=== PATIENT | female | born 1970 | race Caucasian/White ===

== ENCOUNTER 2019-11-26 13:25 | Inpatient (IN) | payer OTHER, SELFPAY ==
[2019-11-26 14:39] VITALS: BP 173/88; PULSE 96; RESP 16; TEMP 37.2; O2SAT 99; BMI 40.7
[2019-11-26 16:00] VITALS: BP 148/64; PULSE 84; RESP 15; TEMP 37; O2SAT 98
--- NOTE | 2019-11-26 16:29 | US_ITS ---
EXAMINATION: US ABDOMEN LIMITED CLINICAL INFORMATION: Right upper quadrant pain after eating chicken. COMPARISON: CT abdomen pelvis 02/02/2018 TECHNIQUE: Real-time imaging of the right upper quadrant abdominal viscera. FINDINGS: PANCREAS: The pancreas appears unremarkable, without masses or ductal dilatation, with the exception of the tail which is obscured by bowel gas. LIVER: The liver is enlarged and demonstrates increased echogenicity consistent with hepatic steatosis. No focal lesion or intrahepatic biliary duct dilatation. GALLBLADDER: The gallbladder is filled with echogenic stones. No pericholecystic fluid collections are seen. There is a positive Jesus's sign with tenderness over the gallbladder. COMMON BILE DUCT: Normal in caliber measuring 0.4 cm in diameter. RIGHT KIDNEY: Normal. No hydronephrosis. No renal calculi or focal parenchymal lesions. The kidney measures 10.8 cm in maximum dimension. FREE FLUID: None. IMPRESSION: 1. Gallbladder filled with calculi with positive Jesus's sign 2. Enlarged fatty liver
--- NOTE | 2019-11-26 16:33 | ED.ABDPAIN ---
HPI - Abdominal Pain General Chief Complaint: Abdominal Pain Stated Complaint: ABD PAIN Time Seen by Provider: 11/26/19 16:29 History of Present Illness HPI narrative: patient is a 49-year-old female presents today with having abdominal pain in the epigastric right upper quadrant area after eating chicken. Worse at night. The pain is burning in nature. Nonradiating. No fever no chills no cough no congestion or upper respiratory symptoms. No chest pain or shortness of breath no diaphoresis. Positive nausea there is no change in bowel movements. Patient from home. The pain is 5/10. It has not changed since last night. Patient never had a surgery done to her abdomen in the past. Patient denies any new medication. No recent travel. She does have a history of hypertension and she is on Lopressor. No history of diabetes, hypercholesterolemia, mi, family history of [place]. Related Data Home Medications Medication Instructions Recorded Confirmed metoprolol tartrate 1 tab PO DAILY 11/26/19 11/26/19 Allergies Allergy/AdvReac Type Severity Reaction Status Date / Time sumatriptan Allergy Mild Itching Verified 11/26/19 19:38 penicillin V Allergy Unknown hives Verified 11/26/19 19:38 Penicillins [PCN] Allergy Unknown RASH Verified 11/26/19 19:38 seafood Allergy Mild Itching Uncoded 11/26/19 19:38 Review of Systems Review of Systems Constitutional: No Weight loss, No Fever, No Chills, No Night Sweats, No Fatigue, No Malaise ENT/Mouth: No Hearing loss, No Ear Pain, No Nasal Congestion, No Sinus Pain, No Hoarseness, No sore throat, No Rhinorrhea, No Swallowing Difficulty Eyes: No Eye Pain, No Swelling, No Redness, No Foreign Body, No Discharge, No Vision Changes Cardiovascular: No Chest Pain, No SOB, No Dyspnea on Exertion, No Orthopnea, No Edema, No Palpitations Respiratory: No Cough, No Sputum, No Wheezing, No Smoke Exposure, No Dyspnea Gastrointestinal: Positive nausea, No Vomiting, No Diarrhea, No Constipation, positive abdominal Pain, No Hematochezia, No Melena Genitourinary: no irregular bleeding, No Dysuria, No Urinary Frequency, No Hematuria, No Urinary Incontinence, No Urgency, No Flank Pain, No Urinary Flow Changes, No Hesitancy Musculoskeletal: No joint pain, No Myalgias, No Joint Swelling Skin: No Skin Lesions, No rash Neuro: No Weakness, No Numbness, No Paresthesias, No Loss of Consciousness, No Dizziness, No Headache Psych: No Anxiety/Panic, No Depression, No SI/HI/AH/VH, No Social Issues, Heme/Lymph: No Bruising, No Bleeding,No Lymphadenopathy Endocrine: No Polyuria, No Polydipsia, No Temperature Intolerance Physical Exam Vital Signs: Vital Signs: Vital Signs Temp Pulse Resp BP Pulse Ox 11/26/19 18:26 96 15 193/92 H 98 11/26/19 16:00 98.6 F 84 15 148/64 H 98 11/26/19 14:39 99 F 96 16 173/88 H 99 Body Mass Index 40.7 Appearance: Alert. Oriented X3. No acute distress. Eyes: Pupils equal, round and reactive to light. ENT: Pharynx normal. Neck: Normal inspection. Neck supple. No lymph nodes noted. No crepitus CVS: Normal heart rate and rhythm. Pulses normal. Normal S1 and S2 Respiratory: No respiratory distress. Breath sounds normal. No Wheezing. No rales Abdomen: Soft mild right upper quadrant tenderness. No organomegaly.. No rigidity. No distention. good BS x4 Skin: Skin warm and dry. Normal skin color. Normal skin turgor. Extremities: No lower extremity edema. Neurovascular intact to all extremities. No Lacerations. No Rash Neuro: Oriented X 3. No motor deficit. No sensory deficit. Moving all extermities. No slurred speech MDM - Abdominal Pain MDM Narrative Medical decision making narrative: patient's white count is 14. Has abdominal pain after eating some chicken. Patient's LFTs did not show significant elevations. However patient's ultrasound is positive for an ultrasonographic Jesus sign. With positive gallstones. Consistent with having cholecystitis. Patient given Rocephin and Flagyl. Case discussed with surgery. Will admit patient for further evaluation. Currently in stable condition. Differential Diagnosis Differential diagnosis: Likely abdominal pain, bowel perforation, calculus of kidney and constipation Medical Records Attestation: I reviewed the patient's medical records. Lab Data Attestation: I reviewed the patient's lab results. Result diagrams: 11/26/19 17:07 11/26/19 21:00 Labs: Lab Results 11/26/19 11/26/19 11/26/19 Range/Units 17:07 17:07 21:00 WBC 14.5 H (4.8-10.8) X10*3/uL RBC 5.25 (4.20-5.50) X10*6/uL Hgb 14.7 (12.0-16.0) g/dl Hct 45.4 (37-47) % MCV 86.5 (80-98) fL MCH 28.0 (27.0-33.0) pg MCHC 32.4 (31.0-35.0) g/dl RDW 12.5 (11.0-16.0) % Plt Count 340 (160-400) X10*3/uL MPV 10.2 (9.4-12.3) fL Immature Gran % (Auto) 0.3 (0.0-0.4) % Neut % (Auto) 84.1 H (45-73) % Lymph % (Auto) 9.7 L (20-40) % [place] % (Auto) 5.4 (2-11) % Eos % (Auto) 0.2 (0-4) % Baso % (Auto) 0.3 (0-2) % Lymph # (Auto) 1.4 (1.2-4.9) X10*3/uL [place] # (Auto) 0.8 (0.1-1.2) X10*3/uL Eos # (Auto) 0.0 (0.0-0.4) X10*3/uL Baso # (Auto) 0.0 (0.0-0.2) X10*3/uL Abs Immat Gran (auto) 0.05 H (0.00-0.03) X10*3/uL Absolute Neuts (auto) 12.2 H (2.0-8.3) X10*3/uL Absolute Nucleated RBC 0.000 (0.0-0.012) X10*3/uL Nucleated RBC % (auto) 0.0 (0.0-0.2) /100WBC Sodium Cancelled 136 Potassium Cancelled 4.1 Chloride Cancelled 103 Carbon Dioxide Cancelled 24 Anion Gap Cancelled 13 BUN Cancelled 10 Creatinine Cancelled 0.64 Estim Creat Clear Calc Cancelled 130.6 Estimated GFR Cancelled > 60 Random Glucose Cancelled 105 Calcium Cancelled 8.6 Total Bilirubin Cancelled 1.2 H Direct Bilirubin Cancelled 0.5 AST Cancelled 23 ALT Cancelled 24 Alkaline Phosphatase Cancelled 90 Total Protein Cancelled 6.8 Albumin Cancelled 3.9 Lipase Cancelled 35 Discharge Plan Discharge Clinical Impression: Acute cholecystitis Prescriptions: No Action metoprolol tartrate 50 mg tablet 1 tab PO DAILY RF: 0 PMFSH Past Medical History Medical History (Updated 11/26/19 @ 22:10 by Faiza Dick MD) Fibromyalgia HTN (hypertension) Mitral valve prolapse Surgical History (Updated 11/26/19 @ 16:36 by Faiza Dick MD) No pertinent past surgical history Social History Social History Advance Directives: No Advance Directives Information Provided: No
[2019-11-26 17:13] LABS: MANUAL DIFF FLAG NO
[2019-11-26 17:16] LABS: Basophils Percent Auto 0.3 % (0-2); Eosinophils Percent Auto 0.2 % (0-4); Hematocrit 45.4 % (37-47); Hemoglobin 14.7 g/dl (12.0-16.0); Imm Gran Abs Auto 0.05 X10*3/uL (0.00-0.03); Imm Gran Pct Auto 0.3 % (0.0-0.4); Lymphocytes Absolute Auto 1.4 X10*3/uL (1.2-4.9); Lymphocytes Percent Auto 9.7 % (20-40); Mean Corpuscular HGB Conc 32.4 g/dl (31.0-35.0); Mean Corpuscular Volume 86.5 fL (80-98); Mean Platelet Volume 10.2 fL (9.4-12.3); Monocytes Absolute Auto 0.8 X10*3/uL (0.1-1.2); Monocytes Percent Auto 5.4 % (2-11); Neutrophils Absolute Auto 12.2 X10*3/uL (2.0-8.3); Neutrophils Percent Auto 84.1 % (45-73); Platelet Count 340 X10*3/uL (160-400); Red Blood Count 5.25 X10*6/uL (4.20-5.50); Red Cell Distribution Width 12.5 % (11.0-16.0); White Blood Count 14.5 X10*3/uL (4.8-10.8)
[2019-11-26] MEDS: 0.9 % Sodium Chloride 1,000 ML 999 ML IVCONT (17:28)
[2019-11-26] MEDS: ondansetron HCL 4 MG/2 ML VIAL IVPUSH (17:29)
[2019-11-26] MEDS: Magnesium Hydrox/Alum Hydrox 30 ML ORAL.SUSP PO (17:29)
[2019-11-26 18:26] VITALS: BP 193/92; PULSE 96; RESP 15; O2SAT 98
[2019-11-26 21:38] LABS: Alanine Aminotransferase 24 U/L (0-31); Albumin Level 3.9 g/dL (3.5-5.0); Alkaline Phosphatase 90 U/L (39-117); Anion Gap 13 (12-20); Aspartate Amino Transferase 23 U/L (5-31); Bilirubin Direct 0.5 mg/dL (0.0-0.5); Bilirubin Total 1.2 mg/dL (0.0-1.0); Blood Urea Nitrogen 10 mg/dL (9-16); Calcium 8.6 mg/dL (8.4-10.2); Carbon Dioxide 24 mmol/L (22-29); Chloride 103 mmol/L (96-108); Creatinine Clr Calc Pharmacy 130.6; Estimated Glomerular Filt Rate > 60; Glucose Random 105 mg/dL (60-115); Lipase 35 U/L (8-78); Potassium 4.1 mmol/l (3.3-5.1); Sodium 136 mmol/L (135-145); Total Protein 6.8 g/dL (6.5-8.0)
--- NOTE | 2019-11-26 22:44 | PM.HPGS ---
History of Present Illness History of Present Illness Chief complaint: ABD PAIN Narrative: Eusebia Matos is a 49 year old female presenting with complaints of abdominal pain in the upper abdomen which began yesterday after eating chicken. She reports the pain is sharp and band-like involving the upper abdomen and was associated with nausea without fever, chills, vomiting or diarrhea. She denies a previous history of similar pain. Pain is now 8/10. She presented to the ED and was found to be tender in the RUQ with a positive Jesus's sign. An ultrasound of the abdomen revealed multiple gallstones within the gallbladder without wall thickening or pericholecystic fluid. Review of Systems Constitutional: Constitutional: Denies chills, Denies fever(s), Reports headache(s) and Denies poor appetite ENT: Reports headache(s) Cardiovascular: Cardiovascular: Denies chest pain, Denies rapid heart rate, Denies palpitations and Denies slow heart rate Respiratory: Respiratory: Denies chest congestion, Denies cough, Denies pain on inspiration and Denies wheezing Gastrointestinal: Gastrointestinal: Reports abdominal pain, Reports nausea and Denies vomiting Musculoskeletal: Musculoskeletal: Denies no additional musculoskeletal complaints Neurologic: Denies Abnormal speech present, Denies confusion and Reports headache(s) Psychiatric: Psychiatric: Denies anxiety, Denies confusion and Denies depression Endocrine: Endocrine: Denies palpitations Hematologic/Lymphatic: Hematologic/Lymphatic: Denies easy bleeding, Denies easy bruising and Denies lymphadenopathy Allergic/Immunologic: Allergic/Immunologic: Denies wheezing PMFSH Past Medical History Medical History Fibromyalgia HTN (hypertension) Mitral valve prolapse Surgical History Surgical History No pertinent past surgical history Social History Social History Household Members: Family Housing: House Smoking Status: Never smoker Use of substances other than those prescribed or required for medical reasons: No Have you been hit, kicked, punched, or otherwise hurt by someone within the past year? If so, by whom?: No Do you feel safe in your current relationship?: Yes Is there a partner from a previous relationship who is making you feel unsafe now?: No Are you made to feel afraid or neglected: No Advance Directives: No Advance Directives Information Provided: No Advance Directives on File: No Do you have thoughts of harming others: None Recently lost weight without trying: No Meds Allergies Allergy/AdvReac Type Severity Reaction Status Date / Time sumatriptan Allergy Mild Itching Verified 11/26/19 19:38 penicillin V Allergy Unknown hives Verified 11/26/19 19:38 Penicillins [PCN] Allergy Unknown RASH Verified 11/26/19 19:38 seafood Allergy Mild Itching Uncoded 11/26/19 19:38 Home Medications Medication Instructions Recorded Confirmed Type metoprolol tartrate 1 tab PO DAILY 11/26/19 11/26/19 History Physical Exam Vital Signs: Vital Signs: Vital Signs Temp Pulse Resp BP Pulse Ox 11/26/19 18:26 96 15 193/92 H 98 11/26/19 16:00 98.6 F 84 15 148/64 H 98 11/26/19 14:39 99 F 96 16 173/88 H 99 Body Mass Index 40.7 Const: General: No confusion Orientation/consciousness: No confusion Eyes: Sclerae: sclerae normal EOM: EOMs intact bilaterally Resp: Effort & Inspection: normal respiratory effort Auscultation: clear to auscultation bilaterally Cardio: Jugular venous distension: no JVD Rate: regular rate Rhythm: regular rhythm Heart sounds: S1 normal heart sound present and S2 normal heart sound present GI: Inspection: Yes normal to inspection and Yes distended Palpation (GI): Soft to palpation, Tenderness to palpation present (GI) in the LUQ, in the RUQ and Jesus's sign positive, no hepatosplenomegaly and No Rebound tenderness present Percussion: Yes normal to percussion Auscultation: normal bowel sounds Rectal Exam - Female: deferred Skin: General skin exam: no rashes or lesions noted and turgor normal Neuro: General: No confusion Speech: No Abnormal speech present Gait exam (Neuro): Normal gait present Extrem: General: Yes normal to inspection, Yes full ROM and Yes no pedal edema Psych: Speech and movement: Normal speech and movement present Affect: normal affect Results Results Labs: Short CBC 11/26/19 Range/Units 17:07 WBC 14.5 H (4.8-10.8) X10*3/uL Hgb 14.7 (12.0-16.0) g/dl Hct 45.4 (37-47) % Plt Count 340 (160-400) X10*3/uL BMP 11/26/19 11/26/19 17:07 21:00 Sodium Cancelled 136 Potassium Cancelled 4.1 Chloride Cancelled 103 Carbon Dioxide Cancelled 24 BUN Cancelled 10 Creatinine Cancelled 0.64 Calcium Cancelled 8.6 Liver Function 11/26/19 11/26/19 Range/Units 17:07 21:00 Total Bilirubin Cancelled 1.2 H Direct Bilirubin Cancelled 0.5 AST Cancelled 23 ALT Cancelled 24 Alkaline Phosphatase Cancelled 90 Albumin Cancelled 3.9 Assessment and Plan (1) Acute cholecystitis: Status: Acute Patient presents with abdominal pain in the upper abdomen found to be tender in the right upper quadrant with a positive Jesus's sign. U/S is positive for gallstones with tenderness with palpation of the gallbladder, suggestive of acute cholecystitis. I reviewed the findings with the patient and recommended a laparoscopic or possible open cholecystectomy. After a discussion ot the procedure, alternatives and risks, she consents to the surgery. She will be added on to the OR scedule for today. Quality VTE VTE Risk Level: Low Documentation of Mechanical Device: Intermittent pneumatic compression boot
[2019-11-26] MEDS: cefTRIAXone sodium 1 GM in 0.9 % Sodium Chloride 50 ML IV (22:47)
[2019-11-26 22:49] VITALS: BP 174/86; PULSE 94; O2SAT 96
[2019-11-27] VITALS (17 sets, daily range): BP systolic 129–189; BP diastolic 65–110; PULSE 71–99; RESP 14–20; TEMP 35.9–37.6; O2SAT 92–99; BMI 40.7
[2019-11-27] MEDS: Morphine Sulfate 4 MG/ML CARTRIDGE 3 MG IVPUSH ×4 (00:16→13:01)
--- NOTE | 2019-11-27 05:05 | PC.ADMIT ---
11/26/2019 2230 pt arrived to unit from ed via stretcher. Weight Loss Consultant utilized for admission process. Pt states pain in abdomen, MS administered for 8/10 abdominal pain. pt cooperative with admission assessment. unit and room orientation provided. call collins in reach, bed locked on lowest setting. upon arrival to unit pt bp 189/74, pain medicaitons administered, bp rechecked 160/90, MD Raymundo notified - stated he will enter hospitalist consult, hospitalist notified of BP and new consult orders, no new orders for BP.
--- NOTE | 2019-11-27 05:13 | PC.NURSE ---
Hospitalist aware of BP 168/88, Morphine adminstered for pain following BP, no new orders.
--- NOTE | 2019-11-27 08:35 | W.PM.OPN ---
Operative Note Operative Note Narrative: Brief Operative Note Date of procedure: 11/27/19 Pre-op diagnosis: ACUTE CHOLECYSTITIS Post-op diagnosis: same Procedure: Laparoscopic cholecystectomy Procedure details: Patient was brought to the OR and placed in a supine position. After administering general anesthesia the patient's abdomen was prepped with ChloraPrep and draped in a sterile fashion. Local anesthesia consisting of 0.75% Sensorcaine with epinephrine was infiltrated in a periumbilical region. A 5 mm incision was made above the umbilicus in a transverse fashion. The Veress needle was then inserted while elevating abdominal cavity with towel clips. After positive drop test the abdomen was insufflated to a pressure of 15 mm of mercury. The Veress needle was then removed and a 5 mm trocar inserted. The camera was inserted in the abdomen explored. A 12 mm trocar was then placed in the epigastrium and 2 5 mm trocars placed in the right upper quadrant. The patient was placed in reverse Trendelenburg positioning and rotated to the left. The gallbladder was noted to have a very large stone at the fundus. An attempt at draining the gallbladder was unsuccessful due to this gallstone. A 2nd stone was noted at the neck of the gallbladder. The gallbladder wall was felt to be markedly inflamed as well. The gallbladder was grasped at the infundibulum and retracted away from the liver bed. The Dolphin dissected was then used to dissect the peritoneum off the infundibulum to reveal the junction with the cystic duct. Cystic artery was noted slightly medial and posterior to the cystic duct. After obtaining a critical view the cystic duct was doubly clipped and divided. The cystic artery was then doubly clipped and divided. The gallbladder was then dissected off the liver bed using electrocautery with an L hook. Hemostasis was assured all times using the electrocautery. When the gallbladder is completely dissected off the liver bed was placed in an Endo-Catch bag and brought out through the epigastric incision. It should be noted that the incision needed to be enlarged to allow passage of the stone through the skin. The gallbladder was sent to pathology for further examination. The abdomen was then re-examined. The liver bed was irrigated and suctioned dry. No bleeding or bile leak could be identified. CO2 was then evacuated and all trocars removed. Fascia was closed at the epigastric incision using a [id number] 0 Polysorb suture. Skin was closed in all incisions using a subcuticular 4 0 Polysorb suture. Sterile dressings consisting of Steri-Strips, 2 x 2 gauze, and Tegaderm were then applied. The patient tolerated the procedure well. Sponge instrument and needle counts reported as correct. The patient was transferred to PACU in stable condition. Operative findings: Patient was found to have a large gallstone wedged in the fundus of the gallbladder. A 2nd stone was noted in the infundibulum. Inflammation was noted in the wall of the gallbladder. Findings are suggestive of acute cholecystitis due to cholelithiasis Implants: NONE Surgeon: Rasheed Raymundo MD Anesthesia: GETA Estimated blood loss (mL): 10 Pathology: other (GALLBLADDER) Condition: stable Disposition: PACU
[2019-11-27] MEDS: cefTRIAXone sodium 1 GM in 0.9 % Sodium Chloride 50 ML IV ×2 (08:58→22:18)
[2019-11-27] MEDS: metroNIDAZOLE/NS 500 MG/100 ML PIGGYBACK 100 MG IV (08:58)
[2019-11-27] MEDS: Dextrose 5 % and 0.45 % NaCl 1,000 ML 100 ML IVCONT ×2 (09:00→20:26)
--- NOTE | 2019-11-27 09:16 | MHC.SHP ---
Pre-Procedural Eval Section A The patient is an INPATIENT: Yes Changes since office visit: Yes Patient answered all questions; No Cold of Flu in the past 2 weeks, No New Medical Problems and No Changes in Medication The History & Physical has been completed within 30 days and I have reviewed it.: Yes Section B Chief Complaint: ABD PAIN Allergies: Allergies Allergy/AdvReac Type Severity Reaction Status Date / Time sumatriptan Allergy Mild Itching Verified 11/26/19 19:38 penicillin V Allergy Unknown hives Verified 11/26/19 19:38 Penicillins [PCN] Allergy Unknown RASH Verified 11/26/19 19:38 seafood Allergy Mild Itching Uncoded 11/26/19 19:38 Plan Diagnosis/Plan: Unchanged Patient has been examined and remains a candidate for the planned procedure
--- NOTE | 2019-11-27 10:12 | HO.ANESPROP2 ---
FORMERLY [facility], LATER [facility] Past Medical History Medical History Fibromyalgia HTN (hypertension) Mitral valve prolapse Surgical History Surgical History No pertinent past surgical history Social History Social History Household Members: Family Housing: House Smoking Status: Never smoker Use of substances other than those prescribed or required for medical reasons: No Have you been hit, kicked, punched, or otherwise hurt by someone within the past year? If so, by whom?: No Do you feel safe in your current relationship?: Yes Is there a partner from a previous relationship who is making you feel unsafe now?: No Are you made to feel afraid or neglected: No Advance Directives: No Advance Directives Information Provided: No Advance Directives on File: No Do you have thoughts of harming others: None Recently lost weight without trying: No Meds Allergies Allergy/AdvReac Type Severity Reaction Status Date / Time sumatriptan Allergy Mild Itching Verified 11/26/19 19:38 penicillin V Allergy Unknown hives Verified 11/26/19 19:38 Penicillins [PCN] Allergy Unknown RASH Verified 11/26/19 19:38 seafood Allergy Mild Itching Uncoded 11/26/19 19:38 Home Medications Medication Instructions Recorded Confirmed Type metoprolol tartrate 1 tab PO DAILY 11/26/19 11/26/19 History Exam Exam Date and Time: November 27, 2019 1012 Height,Weight and Vital Signs: Height 5 ft 5 in Weight 111.13 kg Last Vital Signs Temp 97.9 F 11/27/19 07:03 Pulse 93 11/27/19 07:03 Resp 18 11/27/19 07:03 BP 150/65 H 11/27/19 07:03 Pulse Ox 95 11/27/19 07:03 Pertinent Lab Results Pertinent Lab Results: Laboratory Tests 11/26/19 11/26/19 11/26/19 17:07 17:07 21:00 WBC 14.5 H RBC 5.25 Hgb 14.7 Hct 45.4 MCV 86.5 MCH 28.0 MCHC 32.4 RDW 12.5 Plt Count 340 MPV 10.2 Immature Gran % (Auto) 0.3 Neut % (Auto) 84.1 H Lymph % (Auto) 9.7 L [place] % (Auto) 5.4 Eos % (Auto) 0.2 Baso % (Auto) 0.3 Lymph # (Auto) 1.4 [place] # (Auto) 0.8 Eos # (Auto) 0.0 Baso # (Auto) 0.0 Abs Immat Gran (auto) 0.05 H Absolute Neuts (auto) 12.2 H Absolute Nucleated RBC 0.000 Nucleated RBC % (auto) 0.0 Sodium Cancelled 136 Potassium Cancelled 4.1 Chloride Cancelled 103 Carbon Dioxide Cancelled 24 Anion Gap Cancelled 13 BUN Cancelled 10 Creatinine Cancelled 0.64 Estim Creat Clear Calc Cancelled 130.6 Estimated GFR Cancelled > 60 Random Glucose Cancelled 105 Calcium Cancelled 8.6 Total Bilirubin Cancelled 1.2 H Direct Bilirubin Cancelled 0.5 AST Cancelled 23 ALT Cancelled 24 Alkaline Phosphatase Cancelled 90 Total Protein Cancelled 6.8 Albumin Cancelled 3.9 Lipase Cancelled 35 Narrative Narrative: 49 y/o female for lap choly Airway Mallampati Class: II TM Dist: >3cm Neck ROM: Full Loose/Missing/Broken Teeth: No Heart: RRR Lungs: CTA Assessment and Plan Assessment Anesthesia Assessment: Anesthesia Plan Discussed and Chart Reviewed Final Anesthetic Review NPO: Yes ASA Class: II Final Preanesthetic Review: No Changes in Pt Med Stat, Meds/Allgs Chart Reviewed, Consent Obtained/Reviewed and Anes Risks/Benef Reviewed Patient Risk: Intermediate Procedure Risk: Intermediate Assessment/Block/Sedation in SS: Assess/Block/Sedation-SS Anesthetic Plan Anesthetic Plan: GA Disposition: Standard PACU
--- NOTE | 2019-11-27 10:16 | HO.ANESPROP2 ---
FORMERLY [facility], LATER [facility] Past Medical History Medical History Fibromyalgia HTN (hypertension) Mitral valve prolapse Surgical History Surgical History No pertinent past surgical history Social History Social History Household Members: Family Housing: House Smoking Status: Never smoker Use of substances other than those prescribed or required for medical reasons: No Have you been hit, kicked, punched, or otherwise hurt by someone within the past year? If so, by whom?: No Do you feel safe in your current relationship?: Yes Is there a partner from a previous relationship who is making you feel unsafe now?: No Are you made to feel afraid or neglected: No Advance Directives: No Advance Directives Information Provided: No Advance Directives on File: No Do you have thoughts of harming others: None Recently lost weight without trying: No Meds Allergies Allergy/AdvReac Type Severity Reaction Status Date / Time sumatriptan Allergy Mild Itching Verified 11/26/19 19:38 penicillin V Allergy Unknown hives Verified 11/26/19 19:38 Penicillins [PCN] Allergy Unknown RASH Verified 11/26/19 19:38 seafood Allergy Mild Itching Uncoded 11/26/19 19:38 Home Medications Medication Instructions Recorded Confirmed Type metoprolol tartrate 1 tab PO DAILY 11/26/19 11/26/19 History Exam Exam Date and Time: November 27, 2019 1016 Height,Weight and Vital Signs: Height 5 ft 5 in Weight 111.13 kg Last Vital Signs Temp 97.9 F 11/27/19 07:03 Pulse 93 11/27/19 07:03 Resp 18 11/27/19 07:03 BP 150/65 H 11/27/19 07:03 Pulse Ox 95 11/27/19 07:03 Pertinent Lab Results Pertinent Lab Results: Laboratory Tests 11/26/19 11/26/19 11/26/19 17:07 17:07 21:00 WBC 14.5 H RBC 5.25 Hgb 14.7 Hct 45.4 MCV 86.5 MCH 28.0 MCHC 32.4 RDW 12.5 Plt Count 340 MPV 10.2 Immature Gran % (Auto) 0.3 Neut % (Auto) 84.1 H Lymph % (Auto) 9.7 L [place] % (Auto) 5.4 Eos % (Auto) 0.2 Baso % (Auto) 0.3 Lymph # (Auto) 1.4 [place] # (Auto) 0.8 Eos # (Auto) 0.0 Baso # (Auto) 0.0 Abs Immat Gran (auto) 0.05 H Absolute Neuts (auto) 12.2 H Absolute Nucleated RBC 0.000 Nucleated RBC % (auto) 0.0 Sodium Cancelled 136 Potassium Cancelled 4.1 Chloride Cancelled 103 Carbon Dioxide Cancelled 24 Anion Gap Cancelled 13 BUN Cancelled 10 Creatinine Cancelled 0.64 Estim Creat Clear Calc Cancelled 130.6 Estimated GFR Cancelled > 60 Random Glucose Cancelled 105 Calcium Cancelled 8.6 Total Bilirubin Cancelled 1.2 H Direct Bilirubin Cancelled 0.5 AST Cancelled 23 ALT Cancelled 24 Alkaline Phosphatase Cancelled 90 Total Protein Cancelled 6.8 Albumin Cancelled 3.9 Lipase Cancelled 35 Airway Mallampati Class: II TM Dist: >3cm Neck ROM: Full Loose/Missing/Broken Teeth: No Heart: RRR Lungs: CTA Assessment and Plan Assessment Anesthesia Assessment: Anesthesia Plan Discussed and Chart Reviewed Final Anesthetic Review NPO: Yes ASA Class: II Final Preanesthetic Review: No Changes in Pt Med Stat, Meds/Allgs Chart Reviewed, Consent Obtained/Reviewed and Anes Risks/Benef Reviewed Patient Risk: Intermediate Procedure Risk: Intermediate Assessment/Block/Sedation in SS: Assess/Block/Sedation-SS Anesthetic Plan Anesthetic Plan: GA Disposition: Standard PACU
--- NOTE | 2019-11-27 10:49 | HO.ANESPROP2 ---
FORMERLY [facility] Past Medical History Medical History Fibromyalgia HTN (hypertension) Mitral valve prolapse Surgical History Surgical History No pertinent past surgical history Social History Social History Household Members: Family Housing: House Smoking Status: Never smoker Use of substances other than those prescribed or required for medical reasons: No Have you been hit, kicked, punched, or otherwise hurt by someone within the past year? If so, by whom?: No Do you feel safe in your current relationship?: Yes Is there a partner from a previous relationship who is making you feel unsafe now?: No Are you made to feel afraid or neglected: No Advance Directives: No Advance Directives Information Provided: No Advance Directives on File: No Do you have thoughts of harming others: None Recently lost weight without trying: No Meds Allergies Allergy/AdvReac Type Severity Reaction Status Date / Time sumatriptan Allergy Mild Itching Verified 11/26/19 19:38 penicillin V Allergy Unknown hives Verified 11/26/19 19:38 Penicillins [PCN] Allergy Unknown RASH Verified 11/26/19 19:38 seafood Allergy Mild Itching Uncoded 11/26/19 19:38 Home Medications Medication Instructions Recorded Confirmed Type metoprolol tartrate 1 tab PO DAILY 11/26/19 11/26/19 History Exam Exam Date and Time: November 27, 2019 1049 Height,Weight and Vital Signs: Height 5 ft 5 in Weight 111.13 kg Last Vital Signs Temp 97.9 F 11/27/19 07:03 Pulse 93 11/27/19 07:03 Resp 18 11/27/19 07:03 BP 150/65 H 11/27/19 07:03 Pulse Ox 95 11/27/19 07:03 Pertinent Lab Results Pertinent Lab Results: Laboratory Tests 11/26/19 11/26/19 11/26/19 17:07 17:07 21:00 WBC 14.5 H RBC 5.25 Hgb 14.7 Hct 45.4 MCV 86.5 MCH 28.0 MCHC 32.4 RDW 12.5 Plt Count 340 MPV 10.2 Immature Gran % (Auto) 0.3 Neut % (Auto) 84.1 H Lymph % (Auto) 9.7 L [place] % (Auto) 5.4 Eos % (Auto) 0.2 Baso % (Auto) 0.3 Lymph # (Auto) 1.4 [place] # (Auto) 0.8 Eos # (Auto) 0.0 Baso # (Auto) 0.0 Abs Immat Gran (auto) 0.05 H Absolute Neuts (auto) 12.2 H Absolute Nucleated RBC 0.000 Nucleated RBC % (auto) 0.0 Sodium Cancelled 136 Potassium Cancelled 4.1 Chloride Cancelled 103 Carbon Dioxide Cancelled 24 Anion Gap Cancelled 13 BUN Cancelled 10 Creatinine Cancelled 0.64 Estim Creat Clear Calc Cancelled 130.6 Estimated GFR Cancelled > 60 Random Glucose Cancelled 105 Calcium Cancelled 8.6 Total Bilirubin Cancelled 1.2 H Direct Bilirubin Cancelled 0.5 AST Cancelled 23 ALT Cancelled 24 Alkaline Phosphatase Cancelled 90 Total Protein Cancelled 6.8 Albumin Cancelled 3.9 Lipase Cancelled 35 Assessment and Plan Assessment Anesthesia Assessment: Anesthesia Plan Discussed and Chart Reviewed Final Anesthetic Review NPO: Yes Final Preanesthetic Review: No Changes in Pt Med Stat, Meds/Allgs Chart Reviewed, Consent Obtained/Reviewed and Anes Risks/Benef Reviewed Patient Risk: Intermediate Procedure Risk: Intermediate Assessment/Block/Sedation in SS: Assess/Block/Sedation-SS Anesthetic Plan Anesthetic Plan: GA and Regional Block Disposition: Standard PACU
--- NOTE | 2019-11-27 10:50 | HO.ANESPROP2 ---
[facility] Past Medical History Medical History Fibromyalgia HTN (hypertension) Mitral valve prolapse Surgical History Surgical History No pertinent past surgical history Social History Social History Household Members: Family Housing: House Smoking Status: Never smoker Use of substances other than those prescribed or required for medical reasons: No Have you been hit, kicked, punched, or otherwise hurt by someone within the past year? If so, by whom?: No Do you feel safe in your current relationship?: Yes Is there a partner from a previous relationship who is making you feel unsafe now?: No Are you made to feel afraid or neglected: No Advance Directives: No Advance Directives Information Provided: No Advance Directives on File: No Do you have thoughts of harming others: None Recently lost weight without trying: No Meds Allergies Allergy/AdvReac Type Severity Reaction Status Date / Time sumatriptan Allergy Mild Itching Verified 11/26/19 19:38 penicillin V Allergy Unknown hives Verified 11/26/19 19:38 Penicillins [PCN] Allergy Unknown RASH Verified 11/26/19 19:38 seafood Allergy Mild Itching Uncoded 11/26/19 19:38 Home Medications Medication Instructions Recorded Confirmed Type metoprolol tartrate 1 tab PO DAILY 11/26/19 11/26/19 History Exam Exam Date and Time: November 27, 2019 1050 Height,Weight and Vital Signs: Height 5 ft 5 in Weight 111.13 kg Last Vital Signs Temp 97.9 F 11/27/19 07:03 Pulse 93 11/27/19 07:03 Resp 18 11/27/19 07:03 BP 150/65 H 11/27/19 07:03 Pulse Ox 95 11/27/19 07:03 Pertinent Lab Results Pertinent Lab Results: Laboratory Tests 11/26/19 11/26/19 11/26/19 17:07 17:07 21:00 WBC 14.5 H RBC 5.25 Hgb 14.7 Hct 45.4 MCV 86.5 MCH 28.0 MCHC 32.4 RDW 12.5 Plt Count 340 MPV 10.2 Immature Gran % (Auto) 0.3 Neut % (Auto) 84.1 H Lymph % (Auto) 9.7 L [place] % (Auto) 5.4 Eos % (Auto) 0.2 Baso % (Auto) 0.3 Lymph # (Auto) 1.4 [place] # (Auto) 0.8 Eos # (Auto) 0.0 Baso # (Auto) 0.0 Abs Immat Gran (auto) 0.05 H Absolute Neuts (auto) 12.2 H Absolute Nucleated RBC 0.000 Nucleated RBC % (auto) 0.0 Sodium Cancelled 136 Potassium Cancelled 4.1 Chloride Cancelled 103 Carbon Dioxide Cancelled 24 Anion Gap Cancelled 13 BUN Cancelled 10 Creatinine Cancelled 0.64 Estim Creat Clear Calc Cancelled 130.6 Estimated GFR Cancelled > 60 Random Glucose Cancelled 105 Calcium Cancelled 8.6 Total Bilirubin Cancelled 1.2 H Direct Bilirubin Cancelled 0.5 AST Cancelled 23 ALT Cancelled 24 Alkaline Phosphatase Cancelled 90 Total Protein Cancelled 6.8 Albumin Cancelled 3.9 Lipase Cancelled 35 Airway Mallampati Class: II TM Dist: >3cm Neck ROM: Full Loose/Missing/Broken Teeth: No Heart: RRR Lungs: CTA
--- NOTE | 2019-11-27 11:54 | MHC.CM.PN ---
SUSTAINABILITY PROJECT MANAGER completed with pts son/HCP as pt was off unit. pts son, Rasheed reports he and the pt reside together and he provides assistance as needed. He reports the pt is independent with care and mobility at baseline and has no services or DME. Rasheed is unsure if the pt has ever completed a HCP, CM will ask pt when she returns. Rasheed reports the pt typically uses public transit to get to appointments Current DC plan is home with no services vs home with VNA CM will obtain VNA preferences when pt returns to the unit pt may need transportation
[2019-11-27] MEDS: Metoprolol Tartrate 50 MG TABLET PO (13:21)
[2019-11-27] MEDS: oxyCODONE HCl Immed Release 5 MG TABLET PO (15:04)
--- NOTE | 2019-11-27 16:08 | PM.IMCN ---
History of Present Illness Data of Consult Service Date: 11/27/19 Requesting physician: Rsaheed Raymundo Primary Care Provider: MD BRODIE Cooper Reason for consult: Medical management 49 year old women with history of hypertension admitted by general surgery for acute cholecystitis. She is status post laparoscopic cholecystectomy. Surgery was unremarkable. Patient has been able to drink without any nausea. She still pretty tired at this point. She is currently resting in bed. She has no acute medical complaints. She was noted to have an elevated blood pressure , likely from not having her antihypertensives. Review of Systems Review of Systems: Denies any recent fever chills or decrease in appetite respiratory denies any shortness of breath coverage production cardiovascular is adjustment of any PND or edema gastrointestinal Status post lap choly genitourinary denies any dysuria frequency or hematuria musculoskeletal denies any joint pain or swelling neuropsych denies any weakness or seizures all other systems reviewed are negative Constitutional: Constitutional: Reports headache(s) ENT: Reports headache(s) Neurologic: Denies Abnormal speech present, Denies confusion and Reports headache(s) Psychiatric: Psychiatric: Denies confusion [facility] Medical History (Updated 11/27/19 @ 16:15 by Elena Fernandez NP) Fibromyalgia HTN (hypertension) Mitral valve prolapse Functional capacity: independent ambulation Pertinent family history: no cardiac disease Surgical History (Updated 11/27/19 @ 16:14 by Elena Fernandez NP) History of Social History Household Members: Family Housing: House Smoking Status: Never smoker Use of substances other than those prescribed or required for medical reasons: No Have you been hit, kicked, punched, or otherwise hurt by someone within the past year? If so, by whom?: No Do you feel safe in your current relationship?: Yes Is there a partner from a previous relationship who is making you feel unsafe now?: No Are you made to feel afraid or neglected: No Advance Directives: No Advance Directives Information Provided: No Advance Directives on File: No Do you have thoughts of harming others: None Recently lost weight without trying: No service: No Current occupational status: employed Meds Allergies Allergy/AdvReac Type Severity Reaction Status Date / Time sumatriptan Allergy Mild Itching Verified 11/26/19 19:38 penicillin V Allergy Unknown hives Verified 11/26/19 19:38 Penicillins [PCN] Allergy Unknown RASH Verified 11/26/19 19:38 seafood Allergy Mild Itching Uncoded 11/26/19 19:38 Home Medications Medication Instructions Recorded Confirmed Type metoprolol tartrate 1 tab PO DAILY 11/26/19 11/26/19 History Physical Exam Vital Signs and Narrative: Vital Signs: Last Vital Signs Temp 97.3 F 11/27/19 15:57 Pulse 71 11/27/19 15:57 Resp 20 11/27/19 14:00 BP 183/88 H 11/27/19 15:57 Pulse Ox 96 11/27/19 15:57 Body Mass Index 40.7 Const: General: No confusion Orientation/consciousness: No confusion Neuro: General: No confusion Speech: No Abnormal speech present Results Labs Labs: Laboratory Tests 11/26/19 11/26/19 11/26/19 17:07 17:07 21:00 WBC 14.5 H RBC 5.25 Hgb 14.7 Hct 45.4 MCV 86.5 MCH 28.0 MCHC 32.4 RDW 12.5 Plt Count 340 MPV 10.2 Immature Gran % (Auto) 0.3 Neut % (Auto) 84.1 H Lymph % (Auto) 9.7 L [place] % (Auto) 5.4 Eos % (Auto) 0.2 Baso % (Auto) 0.3 Lymph # (Auto) 1.4 [place] # (Auto) 0.8 Eos # (Auto) 0.0 Baso # (Auto) 0.0 Abs Immat Gran (auto) 0.05 H Absolute Neuts (auto) 12.2 H Absolute Nucleated RBC 0.000 Nucleated RBC % (auto) 0.0 Sodium Cancelled 136 Potassium Cancelled 4.1 Chloride Cancelled 103 Carbon Dioxide Cancelled 24 Anion Gap Cancelled 13 BUN Cancelled 10 Creatinine Cancelled 0.64 Estim Creat Clear Calc Cancelled 130.6 Estimated GFR Cancelled > 60 Random Glucose Cancelled 105 Calcium Cancelled 8.6 Total Bilirubin Cancelled 1.2 H Direct Bilirubin Cancelled 0.5 AST Cancelled 23 ALT Cancelled 24 Alkaline Phosphatase Cancelled 90 Total Protein Cancelled 6.8 Albumin Cancelled 3.9 Lipase Cancelled 35 Assessment and Plan (1) Acute cholecystitis: Status: Acute (2) Hypertension: Status: Acute 49-year-old woman status post will laparoscopic cholecystectomy. Laparoscopic cholecystectomy. Management as per surgical team. Pain management. Hypertension. Elevated blood pressure postoperatively. Likely related to pain. She did receive her metoprolol 13:00. Give pain medication and monitor blood pressure closely. DVT prophylaxis with mechanical compression boots. Discussed with Dr. Garces full code
--- NOTE | 2019-11-27 19:30 | PM.EVENT ---
Event Note Event Note: patient seen and examined status post cholecystectomy still has abdominal soreness physical exam: Cvs: rrr, [id number] , no murmur res: clear to auscultation ,no rhonchii or wheezing abd: no rebound or guarding ,still ahs abd soarness in surgery area, bs present. ext pulses present , no cyanosis neuro: axo3 , nonfocal. Assessment and plan: status post cholecystitis management as per primary team hypertension: blood pressure still suboptimal, question if pain is contributing patient received metoprolol 50 already monitor blood pressure if needed will add amlodipine IM 2.5 mg
[2019-11-27] MEDS: ondansetron HCL 4 MG/2 ML VIAL IVPUSH (20:13)
[2019-11-28] MEDS: Dextrose 5 % and 0.45 % NaCl 1,000 ML 100 ML IVCONT (05:48)
--- NOTE | 2019-11-28 07:17 | HO.PM.IMPN ---
Subjective Subjective Date of Service: 11/28/19 Interval History: fu Review of Systems Denies any chest pain shortness of breath or abdominal pain Physical Exam Vital Signs: Vital Signs: Vital Signs Temp Pulse Resp BP Pulse Ox 11/27/19 19:28 97.6 F 79 19 176/81 H 93 11/27/19 15:57 97.3 F 71 183/88 H 96 11/27/19 14:00 96.8 F 90 20 184/102 H 97 11/27/19 13:21 84 189/108 H 11/27/19 13:01 20 11/27/19 13:00 96.6 F L 84 20 189/110 H 95 11/27/19 12:55 96.6 F L 84 20 189/108 H 95 11/27/19 11:48 97.2 F 72 18 150/82 H 99 11/27/19 11:34 76 16 167/92 H 98 11/27/19 11:30 77 16 129/78 98 11/27/19 11:25 72 14 148/91 H 92 11/27/19 11:20 97.2 F 82 16 151/88 H 96 11/27/19 11:18 97.2 F 82 16 151/88 H 96 Body Mass Index 40.7 Physical exam: Cvs: rrr, [id number] , no murmur res: clear to auscultation ,no rhonchii or wheezing abd: no rebound or guarding ,nt, bs present. ext pulses present , no cyanosis neuro: axo3 , nonfocal. Objective Data Current Medications Generic Name Dose Route Start Last Admin Trade Name Ashwinq PRN Reason Stop Dose Admin Acetaminophen 650 mg 11/26/19 23:34 Acetaminophen 325 Mg Tablet PO QID PRN headache, temp > 101 Ceftriaxone Sodium 1 gm/ 50 mls @ 100 mls/hr 11/26/19 21:30 11/27/19 22:53 Sodium Chloride IV Infused Q12H HEATHER Infusion Dextrose/Sodium Chloride 1,000 mls @ 100 mls/hr 11/27/19 08:15 11/28/19 05:48 D51/2ns IVCONT 100 mls/hr .Q10H HEATHER Administration Metoprolol Tartrate 50 mg 11/27/19 09:00 11/27/19 13:21 Metoprolol Tartrate 50 Mg Tablet PO 50 mg DAILY HEATHER Administration Protocol Morphine Sulfate 3 mg 11/26/19 22:47 11/27/19 13:01 Morphine Sulfate 4 Mg/Ml Cartridge IVPUSH 3 mg Q3H PRN Administration Pain, Severe (Pain Scale 7-10) Ondansetron HCl 4 mg 11/26/19 22:47 11/27/19 20:13 Ondansetron Hcl 4 Mg/2 Ml Vial IVPUSH 4 mg Q6H PRN Administration Nausea Ondansetron HCl 4 mg 11/27/19 10:55 Ondansetron Hcl 4 Mg/2 Ml Vial IVPUSH ONCE PRN Nausea and Vomiting Oxycodone HCl 5 mg 11/26/19 22:48 11/27/19 15:04 Oxycodone Hcl Immed Release 5 Mg Tablet PO 5 mg Q4H PRN Administration Pain, Moderate (Pain Scale 4-6 Sodium Chloride 3 ml 11/27/19 16:00 11/28/19 01:21 0.9 % Sodium Chloride Flush 3 Ml Syringe IVFLUSH Not Given QSHIFT [facility] Zolpidem Tartrate 5 mg 11/26/19 22:36 Zolpidem Tartrate 5 Mg Tablet PO BEDTIME PRN Insomnia Labs CBC & Chem 7: 11/26/19 17:07 11/26/19 21:00 Quality VTE Documentation of Mechanical Device: Intermittent pneumatic compression boot Assessment and Plan (1) Hypertension: Status: Acute (2) S/P laparoscopic cholecystectomy: Status: Acute Assessment and Plan: 49-year-old woman status post will laparoscopic cholecystectomy. Laparoscopic cholecystectomy. Management as per surgical team. Pain management. Hypertension. Elevated blood pressure postoperatively. Likely abdominal pain may be contributing Please start home amlodipine dosing upon discharge. DVT prophylaxis with mechanical compression boots. Above was discussed with primary team in detail, will sign of -please call us for any questions.
[2019-11-28 08:00] VITALS: BP 160/65; PULSE 87; RESP 18; TEMP 36.1; O2SAT 100
--- NOTE | 2019-11-28 08:10 | P.PNGS_ITS ---
Subjective Subjective Interval history: Had some nausea and vomiting following dinner yesterday. Feels better this morning. She is comfortable, pain is minimal. OOB without difficulty. <ERIC Johnson Last Filed: 11/28/19 08:17> Physical Exam Vital Signs: Vital Signs: Vital Signs Temp Pulse Resp BP Pulse Ox 11/28/19 08:00 96.9 F 87 18 160/65 H 100 11/27/19 19:28 97.6 F 79 19 176/81 H 93 11/27/19 15:57 97.3 F 71 183/88 H 96 11/27/19 14:00 96.8 F 90 20 184/102 H 97 11/27/19 13:21 84 189/108 H 11/27/19 13:01 20 11/27/19 13:00 96.6 F L 84 20 189/110 H 95 11/27/19 12:55 96.6 F L 84 20 189/108 H 95 11/27/19 11:48 97.2 F 72 18 150/82 H 99 11/27/19 11:34 76 16 167/92 H 98 11/27/19 11:30 77 16 129/78 98 11/27/19 11:25 72 14 148/91 H 92 11/27/19 11:20 97.2 F 82 16 151/88 H 96 11/27/19 11:18 97.2 F 82 16 151/88 H 96 Body Mass Index 40.7 <ERIC Johnson Last Filed: 11/28/19 08:17> Const: General: comfortable, no acute distress and alert <ERIC Johnson Last Filed: 11/28/19 08:17> Orientation/consciousness: patient oriented x3 <ERIC Johnson Last Filed: 11/28/19 08:17> Eyes: Sclerae: sclerae normal <ERIC Johnson Last Filed: 11/28/19 08:17> Resp: Effort & Inspection: normal respiratory effort <ERIC Johnson Last Filed: 11/28/19 08:17> Cardio: Rate: regular rate <ERIC Johnson Last Filed: 11/28/19 08:17> GI: Inspection: Yes incision (dressings intact/clean) <Cristine Rodriguez PA-C - Last Filed: 11/28/19 08:17> Palpation (GI): Soft to palpation, Tenderness to palpation present (GI) (mild, incisional), no guarding, not rigid and No Rebound tenderness present <Cristine Rodriguez PA-C - Last Filed: 11/28/19 08:17> Skin: General skin exam: no rashes or lesions noted <Cristine Rodriguez PA-C - Last Filed: 11/28/19 08:17> Neuro: General: patient oriented x3 <Cristine Rodriguez PA-C - Last Filed: 11/28/19 08:17> Extrem: General: Yes no clubbing, cyanosis or edema <Cristine Rodriguez PA-C - Last Filed: 11/28/19 08:17> Progress Note: A&P Assessment and plan (1) Acute cholecystitis: Problem details: s/p lap CCY <Cristine Rodriguez PA-C - Last Filed: 11/28/19 08:17> Status: Acute <Cristine Rodriguez PA-C - Last Filed: 11/28/19 08:17> (2) Hypertension: Status: Acute <Cristine Rodriguez PA-C - Last Filed: 11/28/19 08:17> (3) S/P laparoscopic cholecystectomy: Problem details: POD #1. <Cristine Rodriguez PA-C - Last Filed: 11/28/19 08:17> Status: Acute <Cristine Rodriguez PA-C - Last Filed: 11/28/19 08:17> Assessment and Plan: Clinically appearing well. Had nausea/vomiting last night but now resolved. Pain controlled. VSS. Abd exam benign with appropriate post op tenderness, dressings intact. Will reassess after breakfast, if tolerating, stable for d/c to home today. Patient comfortable with plan. <Cristine Rodriguez PA-C - Last Filed: 11/28/19 08:17> Fall Risk Details Current Medications: Current Medications Generic Name Dose Route Start Last Admin Trade Name Freq PRN Reason Stop Dose Admin Acetaminophen 650 mg 11/26/19 23:34 Acetaminophen 325 Mg Tablet PO QID PRN headache, temp > 101 Ceftriaxone Sodium 1 gm/ 50 mls @ 100 mls/hr 11/26/19 21:30 11/27/19 22:53 Sodium Chloride IV Infused Q12H HEATHER Infusion Dextrose/Sodium Chloride 1,000 mls @ 100 mls/hr 11/27/19 08:15 11/28/19 05:48 D51/2ns IVCONT 100 mls/hr .Q10H HEATHER Administration Metoprolol Tartrate 50 mg 11/27/19 09:00 11/27/19 13:21 Metoprolol Tartrate 50 Mg Tablet PO 50 mg DAILY HEATHER Administration Protocol Morphine Sulfate 3 mg 11/26/19 22:47 11/27/19 13:01 Morphine Sulfate 4 Mg/Ml Cartridge IVPUSH 3 mg Q3H PRN Administration Pain, Severe (Pain Scale 7-10) Ondansetron HCl 4 mg 11/26/19 22:47 11/27/19 20:13 Ondansetron Hcl 4 Mg/2 Ml Vial IVPUSH 4 mg Q6H PRN Administration Nausea Ondansetron HCl 4 mg 11/27/19 10:55 Ondansetron Hcl 4 Mg/2 Ml Vial IVPUSH ONCE PRN Nausea and Vomiting Oxycodone HCl 5 mg 11/26/19 22:48 11/27/19 15:04 Oxycodone Hcl Immed Release 5 Mg Tablet PO 5 mg Q4H PRN Administration Pain, Moderate (Pain Scale 4-6 Sodium Chloride 3 ml 11/27/19 16:00 11/28/19 01:21 0.9 % Sodium Chloride Flush 3 Ml Syringe IVFLUSH Not Given QSHIFT [facility] Zolpidem Tartrate 5 mg 11/26/19 22:36 Zolpidem Tartrate 5 Mg Tablet PO BEDTIME PRN Insomnia <Cristine Rodriguez PA-C - Last Filed: 11/28/19 08:17> Time Spent With Patient Time: Total time spent is greater than 50% in coordination of care (as documented) at patient's floor/unit and/or counseling patient: <Cristine Rodriguez PA-C - Last Filed: 11/28/19 08:17> as noted above the patient developed some nausea and vomiting after eating dinner yesterday feels much improved this morning. Her pain is well controlled with current medications. Wounds are clean and intact. Agree with the above assessment and plan. She may be able to be discharged later today of tolerating her diet without nausea or vomiting. She should avoid lifting greater than 10 lb for the next 2 weeks. She should also avoid fatty or greasy foods the next month. I have asked her to return to the office in approximately 1 week for follow-up examination. She may shower or bathe <Rasheed Raymundo MD - Last Filed: 11/28/19 08:44> Time with patient: 15 - 24 minutes <Cristine Rodriguez PA-C - Last Filed: 11/28/19 08:17> less than 15 minutes <Rasheed Raymundo MD - Last Filed: 11/28/19 08:44>
[2019-11-28 08:52] VITALS: BP 160/65; PULSE 87
[2019-11-28] MEDS: Metoprolol Tartrate 50 MG TABLET PO (08:52)
[2019-11-28] MEDS: cefTRIAXone sodium 1 GM in 0.9 % Sodium Chloride 50 ML IV (08:52)
[2019-11-28] MEDS: oxyCODONE HCl Immed Release 5 MG TABLET PO (08:57)
--- NOTE | 2019-11-28 09:09 | MHC.CM.PN ---
nurse child care sitter note electronic medical record reviewed along with case discussed with [facility] nurse , per surgical p.a. documentation if patient is able to toerate advancing diet with out increase d pain or nausea r emesis she may be discharge\d home later today she will follw up with her primary cRE PHYSICIAN FOR POST HOSPITAL DISCHARGE AND FOLLOW UP PER MIKAL INSTRUCTIONS ON THE DISCGARE PAPERWORK PATIENT IS S/P TAMMY BENAVIDEZ. SHE WILL RETUIRN HOME WITH NO SERVICES ANTICIPATED AND WILL SELF ARRANGE A RIDE HOME
--- NOTE | 2019-11-28 10:14 | HO.POSTANES ---
Post Anesthesia Evaluation Post Anesthesia Evaluation Vital Signs: Vital Signs Temp Pulse Resp BP Pulse Ox 11/28/19 08:52 87 160/65 H 11/28/19 08:00 96.9 F 87 18 160/65 H 100 Anesthesia: General Mental Status: Awake Pain Control: Satisfactory Nausea/Vomiting: None Hydration: Adequate Anesthesia-Related Issues: No Anes. Related Issues
[2019-11-28 10:47] VITALS: O2SAT 100
[2019-11-28 11:00] VITALS: BP 164/79; PULSE 72; RESP 18; TEMP 36.2; O2SAT 98
--- NOTE | 2019-11-28 12:01 | MHC.CM.PN ---
nurse childcare attendant note christina pcp is dr [facility]
--- NOTE | 2019-11-28 12:16 | PM.DS ---
DS: Providers Provider Date of admission: 11/26/19 22:15 Primary care physician: Bailey Akers MD Consults: 11/26/19 22:05 Consult to General Surgery Stat Consulting Provider: Rasheed Raymundo Reason for consultation: Cholecystitis Has provider been notified: Yes 11/27/19 01:56 Consult to Hospitalist Routine Consulting Provider: Hospitalist Reason for consultation: hypertension, acute cholecystitis Has provider been notified: No DS: Diagnosis Discharge Diagnosis (1) S/P laparoscopic cholecystectomy: Status: Acute Problem details: POD #1. (2) Hypertension: Status: Acute DS: Summary Hospital Course Hospital Course: Brief HPI: Eusebia Matos is a 49 year old female presenting with complaints of abdominal pain in the upper abdomen which began yesterday after eating chicken. She reports the pain is sharp and band-like involving the upper abdomen and was associated with nausea without fever, chills, vomiting or diarrhea. She denies a previous history of similar pain. Pain is now 8/10. She presented to the ED and was found to be tender in the RUQ with a positive Jesus's sign. An ultrasound of the abdomen revealed multiple gallstones within the gallbladder without wall thickening or pericholecystic fluid. She was admitted to the surgical service for further treatment of acute cholecystitis. It was recommended to proceed with a laparoscopic or possible open cholecystectomy. She elected to proceed and was added on to the OR schedule for that day. On 11/27/19, a laparoscopic cholecystectomy was performed by Dr. Raymundo without complication. The patient tolerated the procedure well and was admitted to the medical/surgical floor for observation. A hospitalist consult was obtained for her uncontrolled hypertension. The patient had an uncomplicated recovery course. On POD#1, she reported having nausea/1 episode of emesis overnight which resolved. Her pain was controlled. She was OOB and ambulating. She was clinically appearing well with a benign abdominal exam and dressings c/d/i. She was reassessed following breakfast and was tolerating a solid diet without further nausea or vomiting. She felt ready for discharge. Her BP remained elevated and amlodipine 2.5mg PO daily was initiated for discharge. She was discharged to home on 11/28/19 in stable condition. Status at Discharge Functional status at discharge: independent ambulation Overall status at discharge: patient is progressing back to baseline Time Spent with Patient Time attestation: Total time spent providing and/or coordinating discharge services: Time spent: Less than 30 minutes Quality: VTE Documentation of Mechanical Device: Intermittent pneumatic compression boot Physical Exam Vital Signs: Vital Signs: Vital Signs Temp Pulse Resp BP Pulse Ox 11/28/19 10:47 100 11/28/19 08:52 87 160/65 H 11/28/19 08:00 96.9 F 87 18 160/65 H 100 11/27/19 19:28 97.6 F 79 19 176/81 H 93 11/27/19 15:57 97.3 F 71 183/88 H 96 11/27/19 14:00 96.8 F 90 20 184/102 H 97 11/27/19 13:21 84 189/108 H 11/27/19 13:01 20 11/27/19 13:00 96.6 F L 84 20 189/110 H 95 11/27/19 12:55 96.6 F L 84 20 189/108 H 95 Body Mass Index 40.7 Const: General: comfortable, no acute distress and alert Orientation/consciousness: patient oriented x3 Eyes: Sclerae: sclerae normal Resp: Effort & Inspection: normal respiratory effort Cardio: Rate: regular rate GI: Inspection: No distended and Yes incision (dressings c/d/i) Palpation (GI): Soft to palpation, Tenderness to palpation present (GI) (mild incisional tenderness), no guarding, not rigid and No Rebound tenderness present Auscultation: normal bowel sounds Skin: Rashes: no rashes Neuro: General: patient oriented x3 Extrem: General: Yes no clubbing, cyanosis or edema DS: Data Data Completed and Pending Pending studies at discharge: Pending at discharge 11/27/19 11:21 Surgical [PTH] Routine Discharge Plan Discharge Anticipated Discharge Date/Time: 11/28/19 12:45 Patient Disposition: Home, Self-Care Referrals: Rasheed Raymundo MD [Physician] - 1 Week Bailey Francois MD [Primary Care Provider] - 2 Weeks (Call for appointment. Re: Hypertension) Discharge Medications: New oxycodone 5 mg tablet 5 mg PO Q4H PRN (Reason: pain) Qty: 20 RF: 0 amlodipine 2.5 mg tablet 2.5 mg PO DAILY Qty: 30 RF: 1 Continued metoprolol tartrate 50 mg tablet 1 tab PO DAILY RF: 0 Discharge Orders: Discharge Order (Routine); Ordered 11/28/19 Ordered By: Cristine Rodriguez Diet: advance to your usual diet and low fat, low cholesterol Activity on Discharge: No heavy lifting Stand Alone Forms: Work/School Release Print Language: Vietnamese Activity Restrictions/Additional Instructions: If the incision area is tender, you may apply an ice pack for short intervals (No more than 20 minutes on, followed by at least 20 minutes off). Do not apply heat. Do not use creams, lotions, or topical antibiotics unless instructed to do so by your surgeon. These can cause infection or allergic reaction. Ok to shower. Remove clear dressings 12/01/19. You have steri strips (small white cloth strips) covering your incision- these will fall off ~1 week. Call Your Doctor If: -Your temperature exceeds 101.5? F -You experience excessive pain or swelling -You have an unexpected reaction to medication -You have excessive bleeding -You experience continued vomiting/nausea -Your incision begins to separate -Your incision shows signs of infection such as increased redness, swelling, excessive pain, drainage (light blood or clear fluid is normal) or heat Visit Report Forms: Patient Portal Discharge page Care Plan Goals: Return to baseline health and activity Health Concerns: Acute cholecystitis, s/p lap CCY Plan of Treatment: Discharge to home
--- NOTE | 2019-11-28 13:09 | PC.NURSE ---
PT GIVEN DISCHARGE INSTRUCTIONS BY MYSELF AND PERSIAN MARYLOUPREROMERO. NO QUESTIONS FROM PATIENT.
== END 2019-11-28 13:55 | disposition home or self-care (01) | DRG 263 ==
LOC: HO.ED 22:10 → HO.IMC 22:43 → HO.S3 11-27 11:43
PROVIDERS: Admitting Provider Surgery; Emergency Provider Emergency Medicine Emergency Medical Services; PCP Internal Medicine; Visit Provider Surgery
PROC: 0FT44ZZ Resection of Gallbladder, Percutaneous Endoscopic Approach (ICD-10-PCS; CPT 47562; principal; 2019-11-27 08:50)
DX: K80.01 Calculus of gallbladder with acute cholecystitis with obstruction (principal); I10 Essential (primary) hypertension; M79.7 Fibromyalgia; Z79.891 Long term (current) use of opiate analgesic; Z88.0 Allergy status to penicillin; Z79.899 Other long term (current) drug therapy
CPT/HCPCS: 47562; 36415; 76705; 80048; 80076; 83690; 85025; 88304; 96361; 96365; 96367; 96375; 99285; J0131; J1100; J1885; J2270; J2405; J3010

== ENCOUNTER → 2019-12-06 09:10 | Outpatient (BNVA) | payer OTHER, SELFPAY | PROVIDERS: PCP Internal Medicine; Visit Provider Surgery | DX: Z09 Encounter for follow-up examination after completed treatment for conditions other than malignant neoplasm (principal); Z87.19 Personal history of other diseases of the digestive system; Z90.49 Acquired absence of other specified parts of digestive tract | CPT/HCPCS: 99212 ==

== ENCOUNTER → 2020-01-24 14:56 | Outpatient (BNVA) | payer OTHER, SELFPAY | PROVIDERS: PCP Internal Medicine; Visit Provider Student in an Organized Health Care Education/Training Program | DX: Z76.89 Persons encountering health services in other specified circumstances (principal) ==

== ENCOUNTER 2020-02-15 11:42 | Emergency (ER) | payer OTHER, SELFPAY ==
[2020-02-15 12:05] VITALS: BP 177/86; PULSE 106; RESP 18; TEMP 37.5; O2SAT 98; BMI 40.4
[2020-02-15 16:11] LABS: Basophils Percent Auto 0.2 % (0-2); Eosinophils Absolute Auto 0.1 X10*3/uL (0.0-0.4); Eosinophils Percent Auto 0.6 % (0-4); Hematocrit 47.8 % (37-47); Hemoglobin 15.4 g/dl (12.0-16.0); Imm Gran Abs Auto 0.01 X10*3/uL (0.00-0.03); Imm Gran Pct Auto 0.1 % (0.0-0.4); Lymphocytes Absolute Auto 0.7 X10*3/uL (1.2-4.9); Lymphocytes Percent Auto 7.9 % (20-40); MANUAL DIFF FLAG SCAN; Mean Corpuscular HGB Conc 32.2 g/dl (31.0-35.0); Mean Corpuscular Volume 86.9 fL (80-98); Mean Platelet Volume 10.1 fL (9.4-12.3); Monocytes Absolute Auto 0.4 X10*3/uL (0.1-1.2); Monocytes Percent Auto 4.3 % (2-11); Neutrophils Absolute Auto 7.4 X10*3/uL (2.0-8.3); Neutrophils Percent Auto 86.9 % (45-73); Platelet Count 301 X10*3/uL (160-400); Red Cell Distribution Width 12.7 % (11.0-16.0); SCAN SMEAR FLAG 1; White Blood Count 8.6 X10*3/uL (4.8-10.8)
[2020-02-15 16:15] LABS: Glucose Urine UA NEG (NEG); Leukocyte Esterase Urine NEG (NEG); Nitrite Urine NEG (NEG); Specific Gravity - Urine 1.025 (1.005-1.025); Urine Blood NEG (NEG); Urine Ketones NEG (NEG); Urine Protein NEG (NEG-TRACE)
[2020-02-15 16:17] LABS: Appearance Urine CLEAR; Color Urine YELLOW
[2020-02-15] MEDS: 0.9 % Sodium Chloride 1,000 ML 999 ML IV (16:19)
[2020-02-15 16:23] LABS: RBC Urine 0 /HPF (0); Squamous Epithelial Cell Urine 1+ /LPF; WBC Urine 0 /HPF (0-4)
[2020-02-15 16:29] LABS: SLIDE REVIEW VERIFIED
[2020-02-15 16:36] LABS: Alanine Aminotransferase 36 U/L (0-31); Albumin Level 4.4 g/dL (3.5-5.0); Alkaline Phosphatase 103 U/L (39-117); Anion Gap 12 (12-20); Aspartate Amino Transferase 30 U/L (5-31); Bilirubin Total 0.7 mg/dL (0.0-1.0); Blood Urea Nitrogen 17 mg/dL (9-16); Carbon Dioxide 30 mmol/L (22-29); Chloride 101 mmol/L (96-108); Creatinine Clr Calc Pharmacy 110.8; Estimated Glomerular Filt Rate > 60; Glucose Random 103 mg/dL (60-115); Sodium 139 mmol/L (135-145); Total Protein 7.4 g/dL (6.5-8.0)
[2020-02-15 16:54] LABS: Influenza A PCR NEGATIVE (Negative); Influenza B PCR NEGATIVE (Negative); Resp Syncy Virus RNA Qual PCR NEGATIVE (Negative); SARS COV2 PCR INHOUSE NEGATIVE (Negative)
--- NOTE | 2020-02-15 17:33 | ED_ITS ---
HPI - General Adult General Chief complaint: Abdominal Pain Stated complaint: abd pain Time Seen by Provider: 02/15/20 15:27 Source: patient Mode of arrival: ambulatory Limitations: no limitations History of Present Illness HPI narrative: 49-year-old female with history of fibromyalgia, hypertension, cholecystectomy who presents today with complaint 1 day of body aches, chills and some upset stomach today. States she was with a colleague at work when tested positive for COVID. Her symptoms been present for 1 day. No chest pain shortness of breath. No nausea vomiting diarrhea. Pain Consistency: intermittent Relieving factors: none Exacerbating factors: none Treatments prior to arrival: none Related Data Previous Rx's Medication Instructions Recorded amlodipine 2.5 mg PO DAILY #30 tab 11/28/19 metoprolol tartrate 50 mg tablet 50 mg PO DAILY #30 tab 02/12/20 Allergies Allergy/AdvReac Type Severity Reaction Status Date / Time sumatriptan Allergy Mild Itching Verified 01/24/20 14:57 Penicillins [PCN] Allergy Unknown hives & Verified 01/24/20 14:57 rash seafood Allergy Mild Itching Uncoded 11/26/19 19:38 Review of Systems Review of Systems: Constitutional: No Weight loss, No Fever, + Chills, No Night Sweats, No Fatigue, No Malaise ENT/Mouth: No Hearing loss, No Ear Pain, No Nasal Congestion, No Sinus Pain, No Hoarseness, No sore throat, No Rhinorrhea, No Swallowing Difficulty Eyes: No Eye Pain, No Swelling, No Redness, No Foreign Body, No Discharge, No Vision Changes Cardiovascular: No Chest Pain, No SOB, No Dyspnea on Exertion, No Orthopnea, No Edema, No Palpitations Respiratory: No Cough, No Sputum, No Wheezing, No Smoke Exposure, No Dyspnea Gastrointestinal: No Nausea, No Vomiting, No Diarrhea, No Constipation, No Hematochezia, No Melena Genitourinary: no irregular bleeding, No Dysuria, No Urinary Frequency, No Hematuria, No Urinary Incontinence, No Urgency, No Flank Pain, No Urinary Flow Changes, No Hesitancy Musculoskeletal: No joint pain, + Myalgias, No Joint Swelling Skin: No Skin Lesions, No rash Neuro: No Weakness, No Numbness, No Paresthesias, No Loss of Consciousness, No Dizziness, No Headache Psych: No Social Issues Heme/Lymph: No Bruising, No Bleeding,No Lymphadenopathy Endocrine: No Polyuria, No Polydipsia, No Temperature Intolerance Yes all other systems are reviewed and are negative [facility] Past Medical History Medical History Fibromyalgia Fibromyalgia HTN (hypertension) Mitral valve prolapse Surgical History History of History of hysterectomy History of tubal ligation Family History Family History Father Chronic mental illness Prostate cancer Lung cancer Alzheimers disease Mother Non-Hodgkin lymphoma Social History Social History Household Members: Family Housing: House Alcohol intake: never Smoking Status: Never smoker Smoked in Last 30 Days: No Use of substances other than those prescribed or required for medical reasons: No Advance Directives: No Advance Directives Information Provided: Yes service: No Current occupational status: employed Physical Exam Vital Signs: Vital Signs: Last Vital Signs Temp 99.5 F 02/15/20 12:05 Pulse 106 H 02/15/20 12:05 Resp 18 02/15/20 12:05 BP 177/86 H 02/15/20 12:05 Pulse Ox 98 02/15/20 12:05 Body Mass Index 40.4 Reviewed Const: General: cooperative and healthy appearing; No acute distress or intoxicated appearing Nutritional Appearance: average body habitus Orientation/consciousness: patient oriented x3 HENMT: Head: Yes normal to inspection Ears: hearing grossly normal bilatera lly Eyes: General: appearance normal, both eyes and all related structures Visual Brooks: normal visual brooks by confrontation Neck: Neck: Yes normal visual inspection, No positive Brudzinski's sign, No positive Kernig's sign and No tender Thyroid: Thyroid normal Chest: Chest palpation & inspection: normal inspection of the chest Resp: Effort & Inspection: normal respiratory effort Auscultation: clear to auscultation bilaterally Cardio: Jugular venous distension: no JVD Rhythm: regular rhythm Heart sounds: S1 normal heart sound present and S2 normal heart sound present GI: Inspection: Yes normal to inspection Palpation (GI): Soft to palpation Percussion: Yes normal to percussion Auscultation: normal bowel sounds : General: Yes no CVA tenderness Back/Spine/Pelvis: Back: no CVA tenderness Skin: General skin exam: no rashes or lesions noted Neuro: General: patient oriented x3 Extrem: General: Yes normal to inspection Course Course Course Narrative: Nonspecific generalized symptoms for 1 day exposed to a colleague with COVID. Labs overall stable. Rapid COVID negative. No abdominal pain at this time. Advised that this could be early false negative should practice social isolation/social distancing. Will discharge home with supportive care return follow-up instructions. At this time states she feels good after receiving IV fluids and no pain or discomfort no nausea. Stable for discharge. PP consistent with mild viral syndrome type symptoms. Medical Decision Making Lab Data Result diagrams: 02/15/20 16:04 02/15/20 16:04 Labs: Lab Results 02/15/20 02/15/20 02/15/20 Range/Units 16:04 16:04 16:04 WBC 8.6 (4.8-10.8) X10*3/uL RBC 5.50 (4.20-5.50) X10*6/uL Hgb 15.4 (12.0-16.0) g/dl Hct 47.8 H (37-47) % MCV 86.9 (80-98) fL MCH 28.0 (27.0-33.0) pg MCHC 32.2 (31.0-35.0) g/dl RDW 12.7 (11.0-16.0) % Plt Count 301 (160-400) X10*3/uL MPV 10.1 (9.4-12.3) fL Immature Gran % (Auto) 0.1 (0.0-0.4) % Neut % (Auto) 86.9 H (45-73) % Lymph % (Auto) 7.9 L (20-40) % Atkinson % (Auto) 4.3 (2-11) % Eos % (Auto) 0.6 (0-4) % Baso % (Auto) 0.2 (0-2) % Lymph # (Auto) 0.7 L (1.2-4.9) X10*3/uL Atkinson # (Auto) 0.4 (0.1-1.2) X10*3/uL Eos # (Auto) 0.1 (0.0-0.4) X10*3/uL Baso # (Auto) 0.0 (0.0-0.2) X10*3/uL Abs Immat Gran (auto) 0.01 (0.00-0.03) X10*3/uL Absolute Neuts (auto) 7.4 (2.0-8.3) X10*3/uL Absolute Nucleated RBC 0.000 (0.0-0.012) X10*3/uL Nucleated RBC % (auto) 0.0 (0.0-0.2) /100WBC Smear Tech's Comments VERIFIED Sodium 139 (135-145) mmol/L Potassium 4.0 (3.3-5.1) mmol/l Chloride 101 (96-108) mmol/L Carbon Dioxide 30 H (22-29) mmol/L Anion Gap 12 (12-20) BUN 17 H D (9-16) mg/dL Creatinine 0.75 (0.5-1.4) mg/dL Estim Creat Clear Calc 110.8 Estimated GFR > 60 Random Glucose 103 (60-115) mg/dL Calcium 9.0 (8.4-10.2) mg/dL Total Bilirubin 0.7 (0.0-1.0) mg/dL AST 30 (5-31) U/L ALT 36 H (0-31) U/L Alkaline Phosphatase 103 (39-117) U/L Total Protein 7.4 (6.5-8.0) g/dL Albumin 4.4 (3.5-5.0) g/dL Urine Color Urine Appearance Urine pH (5.0-8.0) Ur Specific [place] (1.005-1.025) Urine Protein (NEG-TRACE) MG/DL Urine Glucose (UA) (NEG) MG/DL Urine Ketones (NEG) MG/DL Urine Blood (NEG) Urine Nitrite (NEG) Ur Leukocyte Esterase (NEG) Urine RBC (0) /HPF Urine WBC (0-4) /HPF Ur Squamous Epith Cells /LPF Urine Bacteria /LPF Coronavirus (PCR) NEGATIVE (Negative) Influenza Type A (PCR) NEGATIVE (Negative) Influenza Type B (PCR) NEGATIVE (Negative) RSV RNA Qual (PCR) NEGATIVE (Negative) 02/15/20 Range/Units 16:04 WBC (4.8-10.8) X10*3/uL RBC (4.20-5.50) X10*6/uL Hgb (12.0-16.0) g/dl Hct (37-47) % MCV (80-98) fL MCH (27.0-33.0) pg MCHC (31.0-35.0) g/dl RDW (11.0-16.0) % Plt Count (160-400) X10*3/uL MPV (9.4-12.3) fL Immature Gran % (Auto) (0.0-0.4) % Neut % (Auto) (45-73) % Lymph % (Auto) (20-40) % Atkinson % (Auto) (2-11) % Eos % (Auto) (0-4) % Baso % (Auto) (0-2) % Lymph # (Auto) (1.2-4.9) X10*3/uL [place]kinson # (Auto) (0.1-1.2) X10*3/uL Eos # (Auto) (0.0-0.4) X10*3/uL Baso # (Auto) (0.0-0.2) X10*3/uL Abs Immat Gran (auto) (0.00-0.03) X10*3/uL Absolute Neuts (auto) (2.0-8.3) X10*3/uL Absolute Nucleated RBC (0.0-0.012) X10*3/uL Nucleated RBC % (auto) (0.0-0.2) /100WBC Smear Tech's Comments Sodium (135-145) mmol/L Potassium (3.3-5.1) mmol/l Chloride (96-108) mmol/L Carbon Dioxide (22-29) mmol/L Anion Gap (12-20) BUN (9-16) mg/dL Creatinine (0.5-1.4) mg/dL Estim Creat Clear Calc Estimated GFR Random Glucose (60-115) mg/dL Calcium (8.4-10.2) mg/dL Total Bilirubin (0.0-1.0) mg/dL AST (5-31) U/L ALT (0-31) U/L Alkaline Phosphatase (39-117) U/L Total Protein (6.5-8.0) g/dL Albumin (3.5-5.0) g/dL Urine Color YELLOW Urine Appearance CLEAR Urine pH 7.0 (5.0-8.0) Ur Specific [place] 1.025 (1.005-1.025) Urine Protein NEG (NEG-TRACE) MG/DL Urine Glucose (UA) NEG (NEG) MG/DL Urine Ketones NEG (NEG) MG/DL Urine Blood NEG (NEG) Urine Nitrite NEG (NEG) Ur Leukocyte Esterase NEG (NEG) Urine RBC 0 (0) /HPF Urine WBC 0 (0-4) /HPF Ur Squamous Epith Cells 1+ /LPF Urine Bacteria NONE /LPF Coronavirus (PCR) (Negative) Influenza Type A (PCR) (Negative) Influenza Type B (PCR) (Negative) RSV RNA Qual (PCR) (Negative) Discharge Plan Discharge Clinical Impression: Acute viral syndrome Patient Disposition: Home, Self-Care Instructions: Viral Syndrome (ED) Additional Instructions: Your COVID test was negative Supportive care discussed Return if any concerns or worsening symptoms Otherwise follow CDC guidelines as provided Thank you Prescriptions: No Action metoprolol tartrate 50 mg tablet 50 mg PO DAILY Qty: 30 RF: 6 amlodipine 2.5 mg tablet 2.5 mg PO DAILY Qty: 30 RF: 1 Referrals: Bailey Francois MD [Primary Care Provider] - 1 week (Phone visit)
== END 2020-02-15 17:41 | disposition home or self-care (01) ==
PROVIDERS: Nurse Practitioner Primary Care; Emergency Provider Emergency Medicine; PCP Internal Medicine
DX: B34.9 Viral infection, unspecified (principal); R10.9 Unspecified abdominal pain; I10 Essential (primary) hypertension; M79.7 Fibromyalgia; Z20.828 Contact with and (suspected) exposure to other viral communicable diseases
CPT/HCPCS: 0241U; 36415; 80053; 81001; 85025; 96360; 99284

== ENCOUNTER 2020-07-24 15:29 | Outpatient (REF) | payer OTHER, SELFPAY ==
--- NOTE | ~2020-07-24 | MM_ITS ---
EXAMINATION: MM SCREENING DIGITAL BREAST TOMOSYNTHESIS, BILATERAL CLINICAL INFORMATION: Screening. Asymptomatic. The lifetime risk of breast cancer based on the Tyrer-Cuzick Model is 7.6%. COMPARISON: Mammography: May 14, 2017 and studies dating back to May 02, 2015 TECHNIQUE: Digital breast tomosynthesis is performed in both the craniocaudal and mediolateral oblique views along with computer-aided detection (CAD). Synthesized 2D images are generated from the tomosynthesis. FINDINGS: There are scattered areas of fibroglandular density (ACR BI-RADS breast composition Category b). There are no significant masses, abnormal calcifications, or other abnormalities. MM/MM tomosynthesis screening BI IMPRESSION: There are no significant changes from prior study. ASSESSMENT: BI-RADS 1: Negative RECOMMENDATION: Routine annual mammography screening. This patient's information was entered into a reminder system with a target due date for their next mammogram.
== END 2020-07-24 15:30 | disposition home or self-care (01) ==
LOC: HO.MAMMO 15:29
PROVIDERS: Visit Provider Internal Medicine
DX: Z12.31 Encounter for screening mammogram for malignant neoplasm of breast (principal)
CPT/HCPCS: 77063; 77067

== ENCOUNTER 2020-09-27 14:33 | Emergency (ER) | payer OTHER, SELFPAY ==
--- NOTE | ~2020-09-27 | XR_ITS ---
EXAMINATION: XR LUMBOSACRAL SPINE CLINICAL INFORMATION: Status post work-related injury with heavy lifting and now pain COMPARISON: April 29, 2016 TECHNIQUE: Three views of the lumbosacral spine. FINDINGS: There are 5 nonrib-bearing lumbar vertebra. No acute fracture, spondylolisthesis, or spondylolysis is identified. There is mild narrowing of the L5-S1 disc space. There appears to be some mildly increased density about the left L5-S1 facet which may be related to some degree of facet arthropathy. Sacroiliac joints unremarkable. XR/XR lumbar spine 2-3V IMPRESSION: Mild spondylosis without evidence of acute fracture, spondylolisthesis, or spondylolysis.
[2020-09-27 14:54] VITALS: BP 98/71; PULSE 96; RESP 18; TEMP 36.8; O2SAT 98; BMI 33.3
[2020-09-27] MEDS: Ibuprofen 600 MG TABLET PO (16:11)
[2020-09-27] MEDS: Cyclobenzaprine HCl 10 MG TABLET PO (16:11)
--- NOTE | 2020-09-27 16:52 | ED_ITS ---
HPI - Back Pain/Injury General Chief Complaint: Back Pain/Injury Stated Complaint: back pain Time Seen by Provider: 09/27/20 15:43 Source: patient Mode of arrival: ambulatory Limitations: language barrier (Finnish-speaking) History of Present Illness MD elicited complaint: back pain and back injury Onset (ago): day(s) (5 days ago) Timing: constant and progressively worsening Severity: moderate Similar Symptoms Previously: No Quality: aching Location: lumbar spine Radiation: none Exacerbating factors: movement Relieving factors: none Context: while lifting, turning/twisting and bending Associated symptoms: denies other symptoms Work related injury: Yes Related Data Previous Rx's Medication Instructions Recorded amlodipine 2.5 mg tablet 2.5 mg PO DAILY 90 Days #90 tab 05/23/20 gabapentin 100 mg capsule 100 mg PO BEDTIME 90 Days #90 cap 05/23/20 hydrochlorothiazide 25 mg tablet 25 mg PO DAILY 90 Days #90 tab 05/23/20 metoprolol tartrate 50 mg tablet 50 mg PO DAILY 90 Days #90 tab 05/23/20 acetaminophen 500 mg tablet 1,000 mg PO QID PRN #14 tab 09/27/20 (Tylenol Extra Strength) cyclobenzaprine 10 mg tablet 10 mg PO Q8H #10 tab 09/27/20 ibuprofen 800 mg tablet 800 mg PO Q8H PRN #14 tab 09/27/20 Allergies Allergy/AdvReac Type Severity Reaction Status Date / Time sumatriptan Allergy Mild Itching Verified 05/23/20 18:04 Penicillins [PCN] Allergy Unknown hives & Verified 05/23/20 18:04 rash seafood Allergy Mild Itching Uncoded 05/23/20 18:04 Review of Systems Review of Systems: Constitutional : No trauma, No Weight loss, No Fever, No Chills, ENT/Mouth : No Hearing loss, No Ear Pain, No Nasal Congestion, No Sinus Pain, No Hoarseness, No sore throat, No Rhinorrhea, No Swallowing Difficulty Cardiovascular : No Chest Pain, No SOB Respiratory : No Cough, No Dyspnea Gastrointestinal : No Nausea, No Vomiting, No Diarrhea, No abdominal Pain, No Hematochezia, No Melena Genitourinary : No Dysuria, No Urinary Frequency, No Hematuria, No Urinary or Bowel Incontinence/retention Musculoskeletal : + Back pain, No neck pain, No joint stiffness, No joint swelling Skin : No Skin Lesions, No rash or signs of infection Neuro : No Weakness, No radiation, No Numbness, No Paresthesias, No headache, no loss of bowel or bladder incontinence, no saddle anesthesia, Focal weakness, No radiation Denies history of IV drug usage. Yes all other systems are reviewed and are negative [facility] Past Medical History Attestation statement: The following information was validated with the patient. Medical History Fibromyalgia Fibromyalgia HTN (hypertension) Mitral valve prolapse Morbid obesity Surgical History History of History of hysterectomy History of tubal ligation Family History Family History Father Chronic mental illness Prostate cancer Lung cancer Alzheimers disease Mother Non-Hodgkin lymphoma Social History Social History Household Members: Family Housing: House Alcohol intake: never Advance Directives: No Advance Directives Information Provided: No service: No Current occupational status: employed Physical Exam Vital Signs: Vital Signs: Last Vital Signs Temp 98.2 F 09/27/20 14:54 Pulse 96 09/27/20 14:54 Resp 18 09/27/20 14:54 BP 98/71 09/27/20 14:54 Pulse Ox 98 09/27/20 14:54 Body Mass Index 33.3 vital signs have been reviewed as normal and appeared to be correct. Blood pressure normal. Heart rate normal. Respiration rate normal. Temperature normal. Oxygen saturation normal. Appearance: Alert. Oriented X3. No acute distress. Head: Normal external exam. Normocephalic. Atraumatic. No Panchal signs noted. No raccoon eyes noted Eyes: PERRLA. EOMI. Conjunctiva and sclera normal. Eyelids normal. ENT: EAC normal. TM's Normal. Pharynx normal. Uvula midline. Moist mucous membranes. No trismus noted. No drooling noted. No muffled voice noted. Neck: Normal inspection. Neck supple. FROM. No adenopathy. Thyroid Normal. No meningeal signs. No neck mass noted. CVS: Normal heart rate and rhythm. Heart sound normal. No murmurs noted. Pulses normal throughout. Respiratory: No respiratory distress. Painless inspiration. Breath sounds normal. No wheezes/rales/rhonchi noted. Chest nontender. No accessory muscle usage noted or decreased air movement noted. Abdomen: Soft and nontender. Bowel sounds normal in all 4 quadrants. No distention noted. No organomegaly noted. No visible injury noted. Back: No CVA tenderness. Full range of motion noted. No obvious deformities, or edema. Mild para-spinal muscular tenderness from lumbar region to coccyx. Full ROM in back and lower extremities. 5/5 strength hip extension/flexion, abduction, adduction. Mild Lumbar pain with hip flexion against resistance. Straight leg raise test negative on right; Straight leg raise test negative on left; Reflexes normal ankle and knee bilaterally; EHL motor strength normal bilaterally. No rashes/lesion/induration/fluctuance or signs infection noted. Skin: Skin warm and dry. Normal skin color. Normal skin turgor. No rashes/lesions/lacerations noted. Extremities: No lower extremity edema. Extremities exhibit normal range of motion. Extremities nontender. Neuro: Oriented X 3. No motor deficit. No sensory deficit. Reflexes normal. Patient has a normal steady gait. Course Course Course Narrative: Pt c likely muscular pain, but could be herniated disc. Neuro exam shows no deficits. Not c/w AAA/epidural abscess/dissection.No high risk Hx (Incont, fever, immunosupp, recent surgery/LP, coag, signif trauma, wt loss, puls mass, hx/o Ca, TB, or IVDU) to warrant MRI/CT today. Not c/w Pyelo/UTI/kidn ey stone/spinal fx. Not cauda equina syndrome. X-ray obtained and negative for any acute processes only revealed chronic changes. Will DC c meds and f/u. MDM - Back Pain/Injury Medical Records Attestation: I reviewed the patient's medical records. Imaging Data Lumbar spine x-ray: Attestation: I personally reviewed and interpreted this imaging study as follows: Radiologist's impression: FINDINGS: There are 5 nonrib-bearing lumbar vertebra. No acute fracture, spondylolisthesis, or spondylolysis is identified. There is mild narrowing of the L5-S1 disc space. There appears to be some mildly increased density about the left L5-S1 facet which may be related to some degree of facet arthropathy. Sacroiliac joints unremarkable. XR/XR lumbar spine 2-3V IMPRESSION: Mild spondylosis without evidence of acute fracture, spondylolisthesis, or spondylolysis. Discharge Plan Discharge Clinical Impression: Strain of lumbar region Patient Disposition: Home, Self-Care Instructions: Low Back Strain (ED), Lower Back Exercises (ED) Prescriptions: New cyclobenzaprine 10 mg tablet 10 mg PO Q8H Qty: 10 RF: 0 ibuprofen 800 mg tablet 800 mg PO Q8H PRN (Reason: pain) Qty: 14 RF: 0 acetaminophen [Tylenol Extra Strength] 500 mg tablet 1,000 mg PO QID PRN (Reason: fever or pain) Qty: 14 RF: 0 No Action amlodipine 2.5 mg tablet 2.5 mg PO DAILY 90 Days Qty: 90 RF: 3 hydrochlorothiazide 25 mg tablet 25 mg PO DAILY 90 Days Qty: 90 RF: 3 metoprolol tartrate 50 mg tablet 50 mg PO DAILY 90 Days Qty: 90 RF: 3 gabapentin 100 mg capsule 100 mg PO BEDTIME 90 Days Qty: 90 RF: 0 Referrals: Bailey Francois MD [Primary Care Provider] - 2 days Stand Alone Forms: Work/School Release Print Language: Finnish
== END 2020-09-27 17:16 | disposition home or self-care (01) ==
PROVIDERS: Emergency Provider Emergency Medicine; PCP Internal Medicine
DX: M54.5 Low back pain (principal); Z79.899 Other long term (current) drug therapy
CPT/HCPCS: 72100; 99283

== ENCOUNTER 2021-06-04 10:51 | Emergency (ER) | payer OTHER, SELFPAY ==
[2021-06-04 11:33] VITALS: BP 158/72; PULSE 78; RESP 18; TEMP 36.4; O2SAT 99; BMI 48.0
--- NOTE | 2021-06-04 12:08 | ED_ITS ---
HPI - Skin/Abscess/Foreign Bdy General Chief complaint: Skin/Abscess/Foreign Body <JOHNATHAN Parkinson - Last Filed: 06/04/21 12:24> Stated complaint: rash <JOHNATHAN Parkinson - Last Filed: 06/04/21 12:24> Time Seen by Provider: 06/04/21 11:32 <JOHNATHAN Parkinson - Last Filed: 06/04/21 12:24> Source: patient <JOHNATHAN Parkinson - Last Filed: 06/04/21 12:24> Mode of arrival: ambulatory <JOHNATHAN Parkinson - Last Filed: 06/04/21 12:24> Limitations: language barrier (Kiswahili-speaking) <JOHNATHAN Parkinson - Last Filed: 06/04/21 12:24> History of Present Illness MD complaint: rash <JOHNATHAN Parkinson - Last Filed: 06/04/21 12:24> Onset (ago): day(s) (Since yesterday) <JOHNATHAN Parkinson - Last Filed: 06/04/21 12:24> Location: generalized <JOHNATHAN Parkinson - Last Filed: 06/04/21 12:24> Severity: mild <JOHNATHAN Parkinson - Last Filed: 06/04/21 12:24> Quality: constant and pruritic <JOHNATHAN Parkinson - Last Filed: 06/04/21 12:24> Pain Consistency: constant <JOHNATHAN Parkinson - Last Filed: 06/04/21 12:24> Relieving factors: none <JOHNATHAN Parkinson - Last Filed: 06/04/21 12:24> Exacerbating factors: none <JOHNATHAN Parkinson - Last Filed: 06/04/21 12:24> Context: none <JOHNATHAN Parkinson - Last Filed: 06/04/21 12:24> Associated symptoms: denies other symptoms <JOHNATHAN Parkinson - Last Filed: 06/04/21 12:24> Treatments prior to arrival: none <JOHNATHAN Parkinson - Last Filed: 06/04/21 12:24> Related Data Home medications: Previous Rx's Medication Instructions Recorded ibuprofen 800 mg tablet 800 mg PO Q8H PRN #14 tab 09/27/20 acetaminophen 500 mg tablet 1,000 mg PO Q4H 30 Days #360 tab 05/26/21 (Tylenol Extra Strength) amlodipine 2.5 mg tablet 2.5 mg PO DAILY 90 Days #90 tab 05/26/21 blood pressure monitor #1 ea 05/26/21 cyclobenzaprine 10 mg tablet 10 mg PO Q8H #10 tab 05/26/21 gabapentin 300 mg capsule 300 mg PO BEDTIME 90 Days #90 cap 05/26/21 hydrochlorothiazide 25 mg tablet 25 mg PO DAILY 90 Days #90 tab 05/26/21 metoprolol tartrate 50 mg tablet 50 mg PO DAILY 90 Days #90 tab 05/26/21 diphenhydramine HCl 25 mg tablet 50 mg PO TID PRN #10 tab 06/04/21 (Benadryl Allergy) famotidine 20 mg tablet (Pepcid) 20 mg PO BID #14 tab 06/04/21 prednisone 20 mg tablet 40 mg PO DAILY 5 Days #10 tab 06/04/21 <JOHNATHAN Parkinson - Last Filed: 06/04/21 12:24> Allergies/Adverse reactions: Allergies Allergy/AdvReac Type Severity Reaction Status Date / Time sumatriptan Allergy Mild Itching Verified 06/04/21 11:35 Penicillins [PCN] Allergy Unknown hives & Verified 06/04/21 11:35 rash seafood Allergy Mild Itching Uncoded 06/04/21 11:35 <JOHNATHAN Parkinson - Last Filed: 06/04/21 12:24> Review of Systems Review of Systems: Constitutional : No Fever, No Chills , no body aches, no recent illness Head/Face: No facial swelling, No facial redness ENT/Mouth : No oral/throat swelling, No Hoarseness, No Swallowing Difficulty Eyes: No Eye Pain, No Swelling, No Redness Cardiovascular : No Chest Pain, No SOB, No palpitations Respiratory : No Cough, No Sputum, No Wheezing, No Smoke Exposure, No Dyspnea Gastrointestinal : No Nausea, No Vomiting, No Diarrhea, No abdominal Pain Genitourinary : No Dysuria, No Urinary Frequency, No Hematuria Musculoskeletal : No joint pain, No Myalgias, No Joint Swelling Skin : No Skin Lesions, positive rash Neuro : No Weakness, No Numbness, No Headache, No dizziness, No tingling Psych : No Anxiety/Panic, No Depression Heme/Lymph: No Bruising, No Lymphadenopathy Endocrine : No Polyuria, No Polydipsia Denies changes in lotions or detergents. Denies new medications or any changes in medications. Denies drainage from rash. Denies any recent sick contacts or recent travel. <JOHNATHAN Parkinson - Last Filed: 06/04/21 12:24> Yes all other systems are reviewed and are negative <JOHNATHAN Parkinson - Last Filed: 06/04/21 12:24> [facility] Past Medical History Attestation statement: The following information was validated with the patient. <JOHNATHAN Parkinson - Last Filed: 06/04/21 12:24> Medical History: Medical History Encounter for physical examination Fibromyalgia Fibromyalgia HTN (hypertension) Mitral valve prolapse Morbid obesity <JOHNATHAN Parkinson - Last Filed: 06/04/21 12:24> Surgical History: Surgical History History of History of hysterectomy History of tubal ligation Hx laparoscopic cholecystectomy <JOHNATHAN Parkinson - Last Filed: 06/04/21 12:24> Family History Family History: Family History Father Chronic mental illness Prostate cancer Lung cancer Alzheimers disease Mother Non-Hodgkin lymphoma <JOHNATHAN Parkinson - Last Filed: 06/04/21 12:24> Social History Social History: Social History Household Members: Family Housing: House Alcohol intake: never Patient Tobacco Use Status: Never used Tobacco Tobacco use type: Cigarette e-Cigarette/Vaping Use: Never Used Second Hand Smoke Exposure: No Advance Directives: No Advance Directives Information Provided: No service: No Current occupational status: employed Cognitive needs: No Hearing needs: No Vision needs: Yes <JOHNATHAN Parkinson - Last Filed: 06/04/21 12:24> Physical Exam Vital Signs: Vital Signs: Last Vital Signs Temp 97.5 F 06/04/21 11:33 Pulse 78 06/04/21 11:33 Resp 18 06/04/21 11:33 BP 158/72 H 06/04/21 11:33 Pulse Ox 99 06/04/21 11:33 BMI result Body Mass Index 48.0 vital signs have been reviewed as normal and appeared to be correct. Blood pressure normal. Heart rate normal. Respiration rate normal. Temperature normal. Oxygen saturation normal. <JOHNATHAN Parkinson - Last Filed: 06/04/21 12:24> Appearance: Alert. Oriented X3. No acute distress. Head: Normal external exam. Normocephalic. Atraumatic. No Panchal signs noted. No raccoon eyes noted Eyes: PERRLA. EOMI. Conjunctiva and sclera normal. Eyelids normal. ENT: Pharynx normal. Uvula midline. Moist mucous membranes. No lesions/ulcerations or masses noted on the tongue. Normal voice. No trismus noted. No drooling noted. No muffled voice noted. Neck: Normal inspection. Neck supple. FROM. No adenopathy. Thyroid Normal. No tracheal deviation noted. No crepitus is noted. No meningeal signs. No neck mass noted. No signs of trauma noted. CVS: Normal heart rate and rhythm. Heart sound normal. Pulses normal throughout. No murmurs/rales/gallops. Respiratory: No respiratory distress. Painless inspiration. Breath sounds normal. No wheezes/rales/rhonchi noted. Chest nontender. No crepitus is noted. No signs of trauma noted. No accessory muscle usage noted or decreased air movement noted. No signs of trauma. Abdomen: Soft and nontender. Bowel sounds normal in all 4 quadrants. No distention noted. No organomegaly noted. No visible injury noted. Back: Full range of motion noted. Skin: Skin warm and dry. Normal skin color. Normal skin turgor. Patient macular papular erythematous/blanching rash to the chest wall and bilateral upper arms consistent with allergic reaction. No additional lesions/lacerations noted. Extremities: Extremities exhibit normal range of motion and nontender. Neuro: Oriented X 3. No motor deficit. No sensory deficit. Reflexes normal. Normal steady gait. No focal neuro deficits noted. CN's II-XII intact bilaterally? Vascular: + radial pulses/+ 2 distal pedal pulses/+2 dorsalis pedis b/l. Normal cap refill. No cyanosis noted to upper extremity nails and lower extremity toes nails. <JOHNATHAN Parkinson Last Filed: 06/04/21 12:24> Course Course Course Narrative: IMP/Plan: Allergic rxn. Not anaphylaxis. Not sepsis/ infectious etiology. Patient well appearing in no acute distress, breathing easily without throat symptoms. Speaking full sentences, and handling secretions without difficulty. There is no obvious threat to airway. Lungs are CTA in all campbell. No signs of angioedema, stridor, airway compromise, anaphylaxis or anaphylactic shock. Not c/w SSSS/ TEN/ Eryth multiforme/ Blount Johnsons. Given HPI and PE - Will watch and observe. If patient continues to be symptom free - will d/c with return precautions. Patient understands and agrees with plan <JOHNATHAN Parkinson Last Filed: 06/04/21 12:24> MDM - Skin/Abscess/Foreign Bdy Medical Records Attestation: I reviewed the patient's medical records. <JOHNATHAN Parkinson Last Filed: 06/04/21 12:24> Discharge Plan Discharge Clinical Impression: Allergic reaction <JOHNATHAN Parkinson Last Filed: 06/04/21 12:24> Patient Disposition: Home, Self-Care <JOHNATHAN Parkinson Last Filed: 06/04/21 12:24> Instructions: General Allergic Reaction (ED), Allergy Testing (ED) <JOHNATHAN Parkinson - Last Filed: 06/04/21 12:24> Prescriptions: New diphenhydramine HCl [Benadryl Allergy] 25 mg tablet 50 mg PO TID PRN (Reason: allergic reaction) Qty: 10 0RF prednisone 20 mg tablet 40 mg PO DAILY 5 Days Qty: 10 0RF famotidine [Pepcid] 20 mg tablet 20 mg PO BID Qty: 14 0RF No Action ibuprofen 800 mg tablet 800 mg PO Q8H PRN (Reason: pain) Qty: 14 0RF gabapentin 300 mg capsule 300 mg PO BEDTIME 90 Days Qty: 90 1RF acetaminophen [Tylenol Extra Strength] 500 mg tablet 1,000 mg PO Q4H 30 Days Qty: 360 1RF amlodipine 2.5 mg tablet 2.5 mg PO DAILY 90 Days Qty: 90 3RF cyclobenzaprine 10 mg tablet 10 mg PO Q8H Qty: 10 0RF hydrochlorothiazide 25 mg tablet 25 mg PO DAILY 90 Days Qty: 90 3RF metoprolol tartrate 50 mg tablet 50 mg PO DAILY 90 Days Qty: 90 3RF (DME) blood pressure monitor Kit See Rx Instructions .Route Qty: 1 0RF Rx Instructions: As directed <JOHNATHAN Parkinson - Last Filed: 06/04/21 12:24> Referrals: Bailey Francois MD [Primary Care Provider] - <JOHNATHAN Parkinson - Last Filed: 06/04/21 12:24> Stand Alone Forms: Work/School Release <JOHNATHAN Parkinson - Last Filed: 06/04/21 12:24> Interventions: ED Discharge Assessment Last Done: 06/04/21 12:27 <JOHNATHAN Parkinson - Last Filed: 06/04/21 12:24> Discharge Date/Time: 06/04/21 12:28 <JOHNATHAN Parkinson - Last Filed: 06/04/21 12:24> Print Language: Kiswahili <JOHNATHAN Parkinson - Last Filed: 06/04/21 12:24>
[2021-06-04] MEDS: Famotidine 20 MG TABLET PO (12:23)
[2021-06-04] MEDS: predniSONE 20 MG TABLET 60 MG PO (12:23)
[2021-06-04] MEDS: hydrOXYzine HCL 50 MG TABLET PO (12:23)
== END 2021-06-04 12:28 | disposition home or self-care (01) ==
PROVIDERS: Emergency Provider Emergency Medicine; PCP Internal Medicine
DX: T78.40XA Allergy, unspecified, initial encounter (principal); X58.XXXA Exposure to other specified factors, initial encounter; I10 Essential (primary) hypertension
CPT/HCPCS: 99283

== ENCOUNTER 2021-08-01 09:37 | Outpatient (REF) | payer OTHER, SELFPAY ==
[2021-08-01 09:58] LABS: MANUAL DIFF FLAG NO
[2021-08-01 10:27] LABS: Hematocrit 43.3 % (37.0-47.0); Mean Corpuscular HGB Conc 32.3 g/dl (31.0-35.0); Mean Corpuscular Hemoglobin 28.1 pg (27.0-33.0); Mean Corpuscular Volume 86.8 fL (80.0-98.0); Mean Platelet Volume 10.1 fL (9.4-12.3); Platelet Count 314 X10*3/uL (160-400); Red Blood Count 4.99 X10*6/uL (4.20-5.50); Red Cell Distribution Width 12.9 % (11.0-16.0)
[2021-08-01 10:32] LABS: Basophils Percent Auto 0.4 % (0-2); Eosinophils Absolute Auto 0.2 X10*3/uL (0.0-0.4); Eosinophils Percent Auto 2.8 % (0-4); Hematocrit 43.7 % (37.0-47.0); Imm Gran Abs Auto 0.05 X10*3/uL (0.00-0.03); Imm Gran Pct Auto 0.6 % (0.0-0.4); Lymphocytes Absolute Auto 2.1 X10*3/uL (1.2-4.9); Lymphocytes Percent Auto 26.2 % (20-40); Mean Corpuscular Hemoglobin 27.9 pg (27.0-33.0); Mean Corpuscular Volume 87.2 fL (80.0-98.0); Mean Platelet Volume 10.2 fL (9.4-12.3); Monocytes Absolute Auto 0.5 X10*3/uL (0.1-1.2); Monocytes Percent Auto 6.4 % (2-11); Neutrophils Absolute Auto 5.1 x10*3/uL (2.0-8.3); Neutrophils Percent Auto 63.6 % (45-73); Platelet Count 311 X10*3/uL (160-400); Red Blood Count 5.01 X10*6/uL (4.20-5.50); Red Cell Distribution Width 12.9 % (11.0-16.0)
[2021-08-01 11:01] LABS: Alanine Aminotransferase 26 U/L (0-31); Albumin Level 3.9 g/dL (3.5-5.0); Alkaline Phosphatase 91 U/L (39-117); Anion Gap 11 (12-20); Aspartate Amino Transferase 15 U/L (5-31); Bilirubin Total 0.6 mg/dL (0.0-1.0); Blood Urea Nitrogen 18 mg/dL (9-16); Carbon Dioxide 31 mmol/L (22-29); Chloride 102 mmol/L (96-108); Cholesterol 198 mg/dL; Estimated Glomerular Filt Rate > 60; Glucose Fasting 183 mg/dL (60-99); HDL Cholesterol 40 mg/dL; LDL Cholesterol Calculated 128 mg/dl; Potassium 4.2 mmol/L (3.3-5.1); Sodium 140 mmol/L (135-145); Total Protein 6.8 g/dL (6.5-8.0); Triglycerides 152 mg/dL
[2021-08-01 11:20] LABS: Thyroid Stimulating Hormone 1.03 uIU/mL (0.32-4.0); Vitamin D 25-OH Total 24.7 ng/mL (>30)
[2021-08-01 11:24] LABS: TSH reflex Free T4 0.95 uIU/mL (0.32-4.0)
== END 2021-08-01 09:38 | disposition home or self-care (01) ==
LOC: HO.LAB 09:37
PROVIDERS: PCP Internal Medicine; Visit Provider Nurse Practitioner Family
DX: Z01.818 Encounter for other preprocedural examination (principal); E66.01 Morbid (severe) obesity due to excess calories; D64.9 Anemia, unspecified; E78.5 Hyperlipidemia, unspecified; E55.9 Vitamin D deficiency, unspecified; M79.7 Fibromyalgia; Z68.42 Body mass index [BMI] 45.0-49.9, adult
CPT/HCPCS: 36415; 80053; 80061; 82306; 84443; 85025; 85027; 99202; 99212

== ENCOUNTER → 2021-09-29 14:23 | Outpatient (BNVA) | payer OTHER, SELFPAY | PROVIDERS: PCP Internal Medicine; Referring Provider Internal Medicine; Visit Provider Internal Medicine | DX: Z01.810 Encounter for preprocedural cardiovascular examination (principal); I05.9 Rheumatic mitral valve disease, unspecified; Z79.899 Other long term (current) drug therapy | CPT/HCPCS: 93005; 99202 ==

== ENCOUNTER → 2021-10-14 08:28 | Outpatient (REF) | payer OTHER, SELFPAY ==
--- NOTE | 2021-10-14 08:31 | CA_ITS ---
Transthoracic Echocardiogram Patient (Last, First, Middle): Eusebia Rowe Milagros Gender: Female Date of : 1970 Age: 50 Procedure Date: 10/14/2021 Procedure Type: Transthoracic Echocardiogram Location: OP Height: 157.48 cm Weight: 114.76 kg BSA: 2.11 m2 Heart Rate: bpm BP: 140 / 100 mmHg Edi Developer: TO/VH Referring MD: Thuan Farris MD Tag Machine Operator: Rafael Baptiste MD Symptoms: I05.9 - Rheumatic mitral valve disease, unspecified Study Quality: Fair/No IV access ECG Rhythm: Sinus Conclusions: - 1. Normal LV systolic function with impaired relaxation filling pattern 2. Mildly thickened mitral valve without any clear mitral stenosis 3. Normal RV systolic pressure 4. No gross pericardial effusion Findings Left Ventricle Normal left ventricular size, thickness, and systolic function. The visually estimated ejection fraction is between 55-60%. Spectral Doppler is indicative of an impaired relaxation filling pattern. Right Ventricle Normal right ventricular cavity size and systolic function. Atria The left atrium is normal in size. There is lipomatous hypertrophy of the interatrial septum. Interatrial shunt cannot be excluded. The right atrium is normal in size. Aortic Valve There is mild thickening of the aortic valve. There is no aortic valve stenosis. There is no aortic valve regurgitation. Mitral Valve There is mild anterior and posterior mitral leaflet thickening. There is trace mitral valve regurgitation. There is no mitral valve stenosis. Pulmonic Valve The pulmonic valve was not well visualized. Tricuspid Valve Likely normal tricuspid valve structure and function. There is trace tricuspid valve regurgitation. The right ventricular systolic pressure is normal. The right ventricular systolic pressure is 21 mmHg. Normal right atrial pressure. There is no evidence of pulmonary hypertension. Great Vessels All visible segments of the aorta are normal in size. The pulmonary artery was not well visualized. Pericardium/Pleural There is no evidence of pericardial effusion. Prior Study Comparison No prior study available for comparison. Measurements 2D Linear Measurements IVSd: 0.81 0.6-0.9/0.6-1.0 cm LVIDd: 4.72 3.9-5.3/4.2-5.9 cm LVIDd Index: 2.24 2.4-3.2/2.2-3.1 cm/m2 LVIDs: 3.36 2.0-3.6 cm LVPWd: 0.83 0.7-1.1 cm LA Diam: 3.40 2.7-3.8/3.0-4.0 cm LAIDs Index: 1.61 1.5-2.3 cm/m2 LV Mass: 157.43 67-162/88-224 g LV Mass Index: 74.61 43-95/49-115 g/m2 LVOT Diam: 2.00 3.0+(-)1.3 cm 2D Systolic Function EF 4C: 53.10 >55% EF 2C: 51.10 >55% Mitral Valve MV Pk E: 0.95 MV PK A: 0.97 MV Decel Time: 201.00 E/A: 1.00 E'Lateral: 8.38 E'Medial: 6.96 E/E' Med: 13.60 E/E' Lat: 11.30 PHT: 59.00 MVA PHT: 3.73 Decel [place]: 4.72 Aortic Valve AoV Pk Hi: 1.35 AoV Mn Hi: 0.98 AoV VTI: 0.30 AoV Pk Grad: 7.00 Aov Mn Grad: 4.00 MCKAYLA Cont.VTI: 1.98 LVOT LVOT Pk Hi: 0.82 LVOT Mn Hi: 0.58 LVOT VTI: 0.19 LVOT Pk Grad: 3.00 LVOT Mn Grad: 2.00 LVOT Diam: 2.00 LVOT Area: 3.14 Diastolic Function MV Pk E: 0.95 MV Pk A: 0.97 E/A: 1.00 E'Medial: 6.96 E/E' Med: 13.60 E' Laterial: 8.38 E/E' Lat: 11.30 Right Ventricle TAPSE (mm): 21.20 TVS' Hi: 10.90 Tricuspid Valve TR Pk Hi: 2.13 TR Pk Grad: 18.00 RA Press: 3.00 RVSP: 21.00 Great Vessels Aorta Sinus of Valsalva: 2.84 2.0-3.[address] [place]: 2.20 1.7-3.4 cm Ao Asc: 3.10 2.1-3.4 cm Updated in Other Vendor System with Status of Final Rafael Baptiste MD electronically signed on 10/15/2021 5:01:59 PM with status of Final
== END ==
LOC: HO.CARD 08:28
PROVIDERS: PCP Internal Medicine; Visit Provider Internal Medicine
DX: I05.9 Rheumatic mitral valve disease, unspecified (principal)
CPT/HCPCS: 93306

== ENCOUNTER 2021-11-13 08:53 | Day surgery (SDC) | payer OTHER, SELFPAY ==
[2021-11-07 15:06] VITALS: BMI 48.2
--- NOTE | 2021-11-12 12:09 | HO.ANESPROP2 ---
Documented by User: Jayleen Benítez NP 11/12/21 12:30 HPI - Anesthesia Eval Consult details Narrative: 50yo F for Colonoscopy Cardiac cleared [facility] Active Problems Active Problems: All Active Problems (Updated 11/07/21 @ 15:00 by Jennifer Cochran RN) Hypertension (Acute) S/P laparoscopic cholecystectomy (Acute) Elevated C-reactive protein (CRP) (Acute) Encounter for physical examination (Acute) Diabetes mellitus (Acute) Preoperative cardiovascular examination (Acute) Mitral valve problem (Acute) Morbid obesity (Acute) Fibromyalgia (Acute) Past Medical History Medical History (Updated 11/07/21 @ 15:00 by Jennifer Cochran RN) Fibromyalgia HTN (hypertension) Mitral valve prolapse Morbid obesity On beta sami at home Family History Family History Father Chronic mental illness Prostate cancer Lung cancer Alzheimers disease Mother Non-Hodgkin lymphoma Surgical History Surgical History (Updated 11/07/21 @ 15:04 by Jennifer Cochran RN) History of History of hysterectomy History of tubal ligation Hx laparoscopic cholecystectomy Social History Social History Household Members: Family Housing: House Alcohol intake: never Patient Tobacco Use Status: Never used Tobacco Tobacco use type: Cigarette e-Cigarette/Vaping Use: Never Used Second Hand Smoke Exposure: No service: No Current occupational status: employed Cognitive needs: No Hearing needs: No Vision needs: Yes Meds Allergies Allergy/AdvReac Type Severity Reaction Status Date / Time sumatriptan Allergy Mild Itching Verified 11/07/21 15:00 Penicillins [PCN] Allergy Unknown hives & Verified 11/07/21 15:00 rash seafood Allergy Mild Itching Uncoded 11/07/21 15:00 Exam Exam Date and Time: November 12, 2021 1209 Height,Weight and Vital Signs: Height 5 ft 2 in Weight 119.748 kg Pertinent Lab Results Pertinent Lab Results: Laboratory Tests 08/01/21 08/01/21 09:55 09:55 WBC 8.0 Hgb 14.0 Hct 43.7 Plt Count 311 Sodium 140 Potassium 4.2 Chloride 102 Carbon Dioxide 31 H BUN 18 H Creatinine 0.72 Narrative Narrative: ECHO 09/2021 Conclusions: - 1. Normal LV systolic function with impaired relaxation filling pattern? 2. Mildly thickened mitral valve without any clear mitral? stenosis ? 3. Normal RV systolic pressure ? 4. No gross pericardial effusion ? ?? EKG 09/2021 sinus rhythm at 79/Min; no significant ST-T changes and otherwise unremarkable.? Normal NJ/QTc. Assessment and Plan Assessment Anesthesia Assessment: Chart Reviewed Documented by User: Earl Holder MD 11/13/21 16:34 [facility] Past Medical History Medical History (Updated 11/07/21 @ 15:00 by Jennifer Cochran RN) Fibromyalgia HTN (hypertension) Mitral valve prolapse Morbid obesity On beta sami at home Family History Family History Father Chronic mental illness Prostate cancer Lung cancer Alzheimers disease Mother Non-Hodgkin lymphoma Family history of problems with anesthesia: No Surgical History Surgical History (Updated 11/07/21 @ 15:04 by Jennifer Cochran RN) History of History of hysterectomy History of tubal ligation Hx laparoscopic cholecystectomy History of Problems with Anesthesia: No Social History Social History Household Members: Family Housing: House Alcohol intake: never Patient Tobacco Use Status: Never used Tobacco Tobacco use type: Cigarette e-Cigarette/Vaping Use: Never Used Second Hand Smoke Exposure: No service: No Current occupational status: employed Cognitive needs: No Hearing needs: No Vision needs: Yes Meds Allergies Allergy/AdvReac Type Severity Reaction Status Date / Time sumatriptan Allergy Mild Itching Verified 11/07/21 15:00 Penicillins [PCN] Allergy Unknown hives & Verified 11/07/21 15:00 rash seafood Allergy Mild Itching Uncoded 11/07/21 15:00 Exam Airway Mallampati Class: IV TM Dist: >3cm Neck ROM: Full Loose/Missing/Broken Teeth: Yes (Poor dentition globally , fillings ) Heart: S1,S2 Lungs: b/l breath sounds Assessment and Plan Assessment Anesthesia Assessment: Anesthesia Plan Discussed Final Anesthetic Review Family History of Problems with Anesthesia: No History of Problems with Anesthesia: No NPO: Yes ASA Class: III Final Preanesthetic Review: Meds/Allgs Chart Reviewed, Consent Obtained/Reviewed and Anes Risks/Benef Reviewed Patient Risk: Intermediate Procedure Risk: Intermediate Anesthetic Plan Anesthetic Plan: MAC: Disposition: Standard PACU
[2021-11-13 09:43] VITALS: BMI 43.3
[2021-11-13 10:01] VITALS: BP 153/85; PULSE 79; RESP 16; TEMP 36.3; O2SAT 97
--- NOTE | 2021-11-13 10:18 | MHC.SHP ---
Pre-Procedural Eval Section A Date of Service: 11/13/21 Section B Chief Complaint: screening Relevant Family History (Specify if Yes): No Relevant Social History: None Present Medications: see Short Stay Collaborative assessment Medical History: Significant History (Fibromyalgia HTN (hypertension) Mitral valve prolapse Morbid obesity On beta sami at home) History of Previous Operations: Relevant previous surgery/procedure and date(s) (History of History of hysterectomy History of tubal ligation Hx laparoscopic cholecystectomy) Allergies: Allergies Allergy/AdvReac Type Severity Reaction Status Date / Time sumatriptan Allergy Mild Itching Verified 11/07/21 15:00 Penicillins [PCN] Allergy Unknown hives & Verified 11/07/21 15:00 rash seafood Allergy Mild Itching Uncoded 11/07/21 15:00 Review of Systems Sugical H&P ROS: Negative: Constitution, Cardiovascular, Respiratory, Neurological, Psychiatric, Hem-Onc, Allergic/Immunologic, Gastrointestinal, Genitourinary, Musculoskeletal, Integumentary, Endocrine and Eyes/Ears/Nose/Throat Exam Surgical H&P Exam: Normal: HEENT, Normal: Heart, Normal: Lungs, Normal: Extremities, Normal: Abdomen, Normal: Skin and Normal: Neurological Plan Diagnosis/Plan: Unchanged I have reviewed the history and physical and performed a pertinent physical examination on my patient. No changes have occurred unless specified.
[2021-11-13 10:20] LABS: Glucose, Whole Blood 87 mg/dL (60-115)
[2021-11-13] MEDS: Lactated Ringers 1,000 ML 100 ML IVCONT (10:27)
--- NOTE | 2021-11-13 10:51 | W.PM.OPN ---
Operative Note Operative Note Date of Service: 11/13/21 Narrative: Operative Information Procedure Description: Colonoscopy Indication: screening Anesthesia: MAC COLONOSCOPY Instrument: Olympus variable stiffness pediatric scope 190L Colonoscopy Monitoring: Vital signs and clinical assessment, continuous EKG monitoring, Pulse oximetry, Carbon Dioxide monitoring and blood pressure monitoring were done throughout the procedure. Colon withdrawal time was 9 minutes. Procedure: The patient was placed in the left lateral decubitis position and pre-procedure medications were administered. After a digital rectal examination of the ano-rectum, the video colonoscope was inserted into the rectum and advanced through the colon to the cecum/TI. The colonoscope was slowly withdrawn in a retrograde panoramic fashion and the colon mucosa was carefully examined including a retroflexed view of the rectum. Findings and interventions are described below. Procedure Difficulty: easy Findings: Terminal Ileum-normal Cecum: 7-8 mm sessile polyp removed with cold forceps Ascending Colon: normal Transverse Colon -normal Descending Colon:normal Sigmoid Colon: normal Rectum: Retroflexion with small internal hemorrhoids, grade I Anorectum - normal Colon preparation: [place] Bowel Preparation Scale Right colon; 2 Transverse colon: 3 Left colon; 3 (0 = Unprepared colon segment with mucosa not seen due to solid stool that cannot be cleared. 1 = Portion of mucosa of the colon segment seen, but other areas of the colon segment not well seen due to staining, residual stool and/or opaque liquid. 2 = Minor amount of residual staining, small fragments of stool and/or opaque liquid, but mucosa of colon segment seen well. 3 = Entire mucosa of colon segment seen well with no residual staining, small fragments of stool or opaque liquid) Impression and Post Procedure Diagnosis: polyp internal hemorrhoids Plan: High fiber diet leaflet Avoid straining at stool, epsom salts and sitz bath, anusol supps or cream Repeat Colonoscopy in 5 years if adenomatous, 10 yrs if benign or earlier if clinically indicated Above findings were reviewed with the patient and relevant handouts were provided if indicated.
[2021-11-13 10:56] VITALS: BP 119/65; PULSE 92; RESP 16; TEMP 36.3; O2SAT 99
[2021-11-13] MEDS: Acetaminophen 325 MG TABLET 650 MG PO (11:01)
[2021-11-13 11:11] VITALS: BP 168/94; PULSE 85; RESP 16; TEMP 36.3; O2SAT 97
== END 2021-11-13 12:00 | disposition home or self-care (01) ==
PROVIDERS: PCP Internal Medicine; Visit Provider Internal Medicine Gastroenterology
PROC: 0DJD8ZZ Inspection of Lower Intestinal Tract, Via Natural or Artificial Opening Endoscopic (ICD-10-PCS; CPT 45378; principal; 2021-11-13 10:50)
DX: Z12.11 Encounter for screening for malignant neoplasm of colon (principal); D12.0 Benign neoplasm of cecum; K64.0 First degree hemorrhoids; I10 Essential (primary) hypertension; E11.9 Type 2 diabetes mellitus without complications; M79.7 Fibromyalgia; I34.1 Nonrheumatic mitral (valve) prolapse; E66.01 Morbid (severe) obesity due to excess calories; Z68.42 Body mass index [BMI] 45.0-49.9, adult; Z79.84 Long term (current) use of oral hypoglycemic drugs; Z79.899 Other long term (current) drug therapy; Z88.0 Allergy status to penicillin; Z88.8 Allergy status to other drugs, medicaments and biological substances; Z90.49 Acquired absence of other specified parts of digestive tract
CPT/HCPCS: 45380; 82947; 88305

== ENCOUNTER → 2021-11-28 09:11 | Outpatient (BNVA) | payer OTHER, SELFPAY | PROVIDERS: PCP Internal Medicine; Visit Provider Nurse Practitioner Family | DX: D36.9 Benign neoplasm, unspecified site (principal); Z98.890 Other specified postprocedural states | CPT/HCPCS: 99212 ==

== ENCOUNTER 2022-01-03 12:44 | Emergency (ER) | payer OTHER, SELFPAY ==
[2022-01-03 12:49] VITALS: BP 152/97; PULSE 110; RESP 19; TEMP 36.6; O2SAT 98; BMI 40.2
[2022-01-03 13:11] LABS: Strep A Nucleic Acid Negative (Negative)
[2022-01-03 14:06] LABS: Influenza A Positive (Negative); Influenza B2 Negative (Negative)
--- NOTE | 2022-01-03 14:13 | ED_ITS ---
HPI - URI/Sore Throat General Chief Complaint: Upper Respiratory Symptoms Stated Complaint: throat pain,headache Time Seen by Provider: 01/03/22 13:36 Source: patient Mode of arrival: ambulatory Limitations: no limitations History of Present Illness HPI Narrative: Patient is a 51-year-old female who presents emergency department for evaluation of sore throat, headache, body aches over the past 2 days. Denies associated fevers, chills, chest pain, shortness of breath, difficulty breathing, nausea, vomiting, abdominal pain. Denies any known sick contacts. Related Data Previous Rx's Medication Instructions Recorded blood pressure monitor #1 ea 05/26/21 cyclobenzaprine 10 mg tablet 10 mg PO Q8H Muscle spasm #10 tabs 05/26/21 amlodipine 2.5 mg tablet 2.5 mg PO DAILY 90 days #90 tabs 09/25/21 blood sugar diagnostic (FreeStyle #100 ea 09/25/21 Lite Strips) blood-glucose meter (FreeStyle #1 ea 09/25/21 Lite Meter kit) gabapentin 300 mg capsule 300 mg PO BEDTIME 90 days #90 caps 09/25/21 hydrochlorothiazide 25 mg tablet 25 mg PO DAILY 90 days #90 tabs 09/25/21 lancets 28 gauge (FreeStyle #100 ea 09/25/21 Lancets) metformin 500 mg tablet 500 mg PO BID 90 days #180 tabs 09/25/21 metoprolol tartrate 50 mg tablet 50 mg PO DAILY 90 days #90 tabs 09/25/21 oseltamivir 75 mg capsule (Tamiflu) 75 mg PO BID 5 days #10 caps 01/03/22 Allergies Allergy/AdvReac Type Severity Reaction Status Date / Time sumatriptan Allergy Mild Itching Verified 11/28/21 09:18 Penicillins [PCN] Allergy Unknown hives & Verified 11/28/21 09:18 rash seafood Allergy Mild Itching Uncoded 11/07/21 15:00 Review of Systems Review of Systems: Constitutional: Positive fever. No chills. No weakness. Positive fatigue. ENT/ Mouth: No Ear Pain, positive Nasal Congestion, positive sore throat, No Rhinorrhea, No Swallowing Difficulty Skin: No rash or itching. Cardiovascular: No chest pain. No palpitations. Respiratory: No shortness of breath. Positive cough. No sputum production. Gastrointestinal: No nausea. No vomiting. No diarrhea. No abdominal pain. Genitourinary: No burning micturition. No urinary frequency. Neurologic: Positive headache. No dizziness. No syncope. No numbness or tingling in the extremities. Musculoskeletal: Positive body aching Yes all other systems are reviewed and are negative [facility] Past Medical History Attestation statement: The following information was validated with the patient. Source: old records reviewed Medical History Fibromyalgia HTN (hypertension) Mitral valve prolapse Morbid obesity On beta sami at home Tubular adenoma Surgical History History of History of hysterectomy History of tubal ligation Hx laparoscopic cholecystectomy Hx of colonoscopy Family History Family History Father Chronic mental illness Prostate cancer Lung cancer Alzheimers disease Mother Non-Hodgkin lymphoma Social History Social History Household Members: Family Housing: House Alcohol intake: never Patient Tobacco Use Status: Never used Tobacco Tobacco use type: Cigarette e-Cigarette/Vaping Use: Never Used Second Hand Smoke Exposure: No Advance Directives: No Advance Directives Information Provided: No service: No Current occupational status: employed Cognitive needs: No Hearing needs: No Vision needs: Yes Physical Exam Vital Signs: Vital Signs: Last Vital Signs Temp 98 F 01/03/22 12:49 Pulse 110 H 01/03/22 12:49 Resp 19 01/03/22 12:49 BP 152/97 H 01/03/22 12:49 Pulse Ox 98 01/03/22 12:49 O2 Del Method 01/03/22 12:49 BMI result Body Mass Index 40.2 Vital signs have been reviewed as normal and appeared to be correct. Blood pressure normal.? Heart rate normal.? Respiration rate normal. Temperature normal.? Oxygen saturation normal. Appearance: Alert.?Oriented to person, place and time. No acute dist ress.?Normal affect. Eyes: Pupils equal, round and reactive to light.? ENT: TM normal bilaterally. Pharynx erythematous without exudates or tonsillar hypertrophy Neck: Normal inspection.? Neck supple.??No cervical adenopathy CVS: Heart sounds normal. Normal heart rate and rhythm.? Pulses normal.?? Respiratory: No respiratory distress.? Lung sounds clear to auscultation bilaterally?? Abdomen: Soft and non-tender. Normoactive bowel sounds. Skin: Skin warm and dry.? Normal skin color.? ? Extremities: No lower extremity edema.? Neuro: Moves all extremities spontaneously. Sensation intact bilaterally. No motor deficits. Ambulates with normal steady gait. Course Course Course Narrative: Patient is a 51-year-old female with past medical history of fibromyalgia, hypertension, obesity, presenting for evaluation of upper respiratory symptoms. COVID-19 testing negative. Influenza A testing is positive. At this time history and physical exam not consistent with ACS/PE/pneumonia. Well-appearing, nontoxic. Speaking clear full sentences, ambulatory with steady gait. Discussed conservative treatment including rest, hydration, Tylenol/ibuprofen as needed for fever and body aches, saline nasal spray, humidifier, [id number] cold medication. Advised to follow-up with primary care provider as needed, discussed reasons to return back to the emergency department. All questions were answered. Patient discharged home in stable condition. Provided with a return to work note. Offered Tamiflu and patient accepted. MDM - URI/Sore Throat Medical Records Attestation: I reviewed the patient's medical records. Lab Data Attestation: I reviewed the patient's lab results. Labs: Lab Results 01/03/22 01/03/22 Range/Units 12:55 13:42 Influenza Type A (MOISE) Positive A (Negative) Influenza Type B (MOISE) Negative (Negative) Influenza A & B Note See Note S. pyogenes GrpA MOISE Negative (Negative) Discharge Plan Discharge Clinical Impression: Influenza Patient Disposition: Home, Self-Care Instructions: Influenza (ED) Additional Instructions: Prescription for Tamiflu was sent to your pharmacy please complete this entire course. Be sure to rest, stay well hydrated drinking plenty of fluids, eat small frequent meals. Tylenol/ibuprofen can be used as needed for fever/pain. Zyct-hpd-ssiczun cold medications may be helpful as well for symptoms. Saline nasal spray, humidifier may be helpful for nasal congestion. You may return to the emergency department with any new or worsening symptoms or concerns. Follow-up with your primary care provider as needed. Should remain out of school/ work until symptoms have resolved and have been without a fever for 24 hours without the use of Tylenol or ibuprofen. Se envi? la receta de Tamiflu a mcgee farmacia, complete todo el curso. Aseg?rese de descansar, mantenerse jerrell hidratado, beber muchos l?quidos, comer comidas yumiko?as y frecuentes. Se puede usar Tylenol/ibuprofen seg?n sea necesario para la fiebre/el dolor. Los medicamentos de venta nikkie para el resfriado tambi?n pueden ser ?tiles para los s?ntomas. El aerosol nasal salino, el humidificador, puede ser ?til para la congesti?n nasal. Puede regresar al departamento de emergencias con cualquier s?ntoma o inquietud nueva o que empeore. Seguimiento con mcgee proveedor de atenci?n primaria seg?n sea necesario. Debe permanecer fuera de la escuela/trabajo hasta que los s?ntomas se hayan resuelto y no haya tenido fiebre berry 24 horas sin el uso de Tylenol o ibuprofeno. Prescriptions: New oseltamivir [Tamiflu] 75 mg capsule 75 mg PO BID 5 Days Qty: 10 0RF No Action cyclobenzaprine 10 mg tablet 10 mg PO Q8H Qty: 10 0RF (DME) blood pressure monitor Kit See Rx Instructions .Route Qty: 1 0RF Rx Instructions: As directed metformin 500 mg tablet 500 mg PO BID 90 Days Qty: 180 1RF amlodipine 2.5 mg tablet 2.5 mg PO DAILY 90 Days Qty: 90 3RF hydrochlorothiazide 25 mg tablet 25 mg PO DAILY 90 Days Qty: 90 3RF metoprolol tartrate 50 mg tablet 50 mg PO DAILY 90 Days Qty: 90 3RF gabapentin 300 mg capsule 300 mg PO BEDTIME 90 Days Qty: 90 1RF (DME) blood-glucose meter [FreeStyle Lite Meter] Kit See Rx Instructions .Route Qty: 1 0RF Rx Instructions: As directed (DME) FreeStyle Lite Strips Strip See Rx Instructions .Route Qty: 100 2RF Rx Instructions: use 1 strip once a day (DME) lancets [FreeStyle Lancets] 28 gauge misc See Rx Instructions .Route Qty: 100 2RF Rx Instructions: Use 1 lancet once a day Referrals: Bailey Francois MD [Primary Care Provider] - Stand Alone Forms: Work/School Release Print Language: Maori
[2022-01-03 14:15] LABS: COVID-19 Test Negative (Negative); IDNOW Serial# 16C4AD1C
== END 2022-01-03 14:36 | disposition home or self-care (01) ==
PROVIDERS: Nurse Practitioner Family; Emergency Provider Emergency Medicine Emergency Medical Services; PCP Internal Medicine
DX: J10.1 Influenza due to other identified influenza virus with other respiratory manifestations (principal); Z20.822 Contact with and (suspected) exposure to COVID-19; E11.9 Type 2 diabetes mellitus without complications; I10 Essential (primary) hypertension; E66.9 Obesity, unspecified; Z68.41 Body mass index [BMI] 40.0-44.9, adult; Z90.49 Acquired absence of other specified parts of digestive tract; Z79.84 Long term (current) use of oral hypoglycemic drugs
CPT/HCPCS: 87502; 87635; 87651; 99282; 99283

== ENCOUNTER 2022-12-17 16:11 | Outpatient (AMB) | payer OTHER, SELFPAY ==
--- NOTE | 2022-12-17 16:14 | MHC.PC.OV ---
Vital Signs 12/17/22 16:15 12/17/22 16:35 Height 5 ft 2 in Weight 265 lb BMI 48.5 BP 140/90 H 136/86 Blood Pressure Location Lt brachial Lt brachial Position Sitting Sitting Pulse 94 Pulse Source Pulse Oximeter Pulse Oximetry (%) 96 Oxygen Delivery Method Room Air Intake Visit Reasons: BP Supervisor Loading Required: Yes Supervisor Loading Language: Citizen Of [place] Allergies sumatriptan Allergy (Mild, Verified 12/17/22 16:27) Itching Penicillins [PCN] Allergy (Unknown, Verified 12/17/22 16:27) hives & rash seafood Allergy (Mild, Uncoded 12/17/22 16:27) Itching Medication List - Last Reconciled 12/17/22 by GAMAL Stoner amlodipine 2.5 mg PO DAILY 90 days blood pressure monitor As directed blood sugar diagnostic (FreeStyle Lite Strips) use 1 strip once a day blood-glucose meter (FreeStyle Lite Meter kit) As directed cyclobenzaprine 10 mg PO Q8H duloxetine 30 mg PO DAILY 30 days hydrochlorothiazide 25 mg PO DAILY 90 days lancets (FreeStyle Lancets) Use 1 lancet once a day metformin 500 mg PO BID 90 days metoprolol tartrate 50 mg PO DAILY 90 days rosuvastatin 20 mg PO BEDTIME 90 days Tobacco use date assessed: 12/17/22 Dental Screening Dental Screen Date: 12/17/22 Did you have a dental visit in the last 12 months?: Yes Did you have a dental problem in the last 6 months where you did not have access to dental care?: No Was dental information given to patient?: Patient has dentist HPI BP HPI Details Patient is a 52-year-old female who presents today to follow-up on her chronic conditions. Patient of Dr. Villareal. Medical history significant for morbid obesity-will follow-up on weight management referral, diabetes, hypertension, hyperlipidemia. Patient reports that she is compliant with medications. Reports Ozempic was not covered by her insurance and she on metformin only. In addition, patient reports that she started with dry cough with intermittent mild yellow/clear sputum production, last voice, postnasal drip since yesterday. She did not use anything for her symptoms. No shortness of breath or chest pain. Patient was encouraged to complete blood work that was ordered by PCP. She also reports body aches. Patient is a Citizen [place]-speaking and Rosa, [place] was helping with interpretation. [facility] Medical History Tubular adenoma On beta sami at home Morbid obesity Fibromyalgia Mitral valve prolapse HTN (hypertension) Surgical History Hx of colonoscopy Hx laparoscopic cholecystectomy History of tubal ligation History of hysterectomy History of Family History Father Chronic mental illness Prostate cancer Lung cancer Alzheimers disease Mother Non-Hodgkin lymphoma Social History Household Members: Family Housing: House Alcohol intake: never Patient Tobacco Use Status: Never used Tobacco e-Cigarette/Vaping Use: Never Used Second Hand Smoke Exposure: No service: No Current occupational status: employed Current occupational exposures/hazards: No Cognitive needs: No Hearing needs: No Vision needs: Yes Questionnaire Thrive Questionnaire Date Thrive assessed: 06/02/22 AUDIT C Alcohol Use Questionnaire (AUDIT-C) 1. How often do you have a drink containing alcohol?: Never Total Score: 0 Score Reviewed/Action Taken: No SHELLEY-7 AMB Questionnaire SHELLEY-7 Date SHELLEY - 7 assessed: 06/02/22 Source: Developed by Drs. Luis Daniel Martinez, Ewa Morales, Darnell Terrazas and colleagues, with an educational joselyn from [employer]. Review of Systems Const Reports body aches, Denies chills, Denies fever(s) and Denies headache(s) ENT Denies dizziness, Denies otalgia, Denies headache(s), Denies nasal discharge, Reports post nasal drip, Denies sinus pain and Denies sore throat Card Denies chest pain, Denies edema, Denies lightheadedness and Denies dyspnea Resp Reports cough, Denies dyspnea and Denies wheezing GI Denies abdominal pain Denies dysuria Musc Denies myalgias Skin/Breast Denies rash Neuro Denies dizziness and Denies headache(s) Aller/Immun Denies wheezing Physical exam (Primary Care) Vital Signs: Last Vital Signs Pulse 94 12/17/22 16:15 BP 140/90 H 12/17/22 16:15 Pulse Ox 96 12/17/22 16:15 Oxygen Delivery Method Room Air 12/17/22 16:15 BMI result Body Mass Index 48.5 Tobacco/Smoking Status: Tobacco use Status Tobacco use date assessed 12/17/22 12/17/22 16:15 Patient Tobacco Use Status Never used Tobacco 12/17/22 16:15 Tobacco use type 06/02/22 17:31 e-Cigarette/Vaping Use Never Used 12/17/22 16:15 Thrive Assessment: Date of Thrive Assessment Date Thrive assessed 06/02/22 12/17/22 16:15 Const General: cooperative and no acute distress Orientation/consciousness: patient oriented x3 HENMT Head: Yes normocephalic and Yes atraumatic Face and sinus: Yes sinuses nontender Mouth: oropharynx normal and moist mucous membranes Throat: Yes posterior oropharynx normal Eyes General: appearance normal, both eyes and all related structures Pupils: Equal, round and reactive pupils present EOM: EOMs intact bilaterally Neck Neck: Yes normal visual inspection, Yes full ROM and Yes no lymphadenopathy Resp Effort & Inspection: normal respiratory effort, able to speak in complete sentences and Actively coughing Quality: dry Auscultation: clear to auscultation bilaterally, no crackles, no rales, no rhonchi and no wheezes Cardio Rate: regular rate Rhythm: regular rhythm Heart sounds: S1 normal heart sound present, S2 normal heart sound present and no murmurs GI Auscultation: normal bowel sounds Skin General skin exam: no rashes or lesions noted Neuro General: patient oriented x3 Cranial nerves: Yes Equal, round and reactive pupils present Gait exam (Neuro): Normal gait present Extrem General: Yes full ROM and No edema Results AMB Hemoglobin A1c AMB Hemoglobin A1c 6.9 % Last Edit by JOSE ARMANDO North on 12/17/22 16:42 Assessment and Plan Assessment & Plan (1) URI (upper respiratory infection): Code(s): J06.9 - Acute upper respiratory infection, unspecified Plan: Will obtain COVID/flu test Provided with Flonase nasal spray due to postnasal drip Start benzonatate t.i.d. p.r.n. Increase fluid consumption Patient can try drinking warm tea as well due to voice loss Notify provider if no improvement in about 1 week (2) Hyperlipidemia LDL goal <70: Code(s): E78.5 - Hyperlipidemia, unspecified Plan: Continue rosuvastatin Low-cholesterol diet and weight loss (3) Hypertension: Code(s): I10 - Essential (primary) hypertension Plan: Goal BP equal or less than 140/90 Continue amlodipine, hydrochlorothiazide, metoprolol Low-sodium diet and weight loss (4) Diabetes mellitus: Code(s): E11.9 - Type 2 diabetes mellitus without complications Plan: A1c 6.9 today, goal less than 7 Continue metformin Low-carbohydrate diet Patient was encouraged to complete blood work Orders: Orders COVID-19 ID NOW (Cutler) Today J06.9 - Acute upper respiratory infection, unspecified Influenza A B2 ID NOW (Cutler) Today J06.9 - Acute upper respiratory infection, unspecified AMB Hemoglobin A1c Today E11.9 - Type 2 diabetes mellitus without complications Medications: New benzonatate 100 mg PO TID PRN 21 caps 0RF cough J06.9 - Acute upper respiratory infection, unspecified fluticasone propionate 50 mcg/actuation (Flonase Allergy Relief) administer into each nostril 1 spray intranasal DAILY 100 mL 0RF J06.9 - Acute upper respiratory infection, unspecified Coding Level of Care Code Est Pt Level 4 (31765) Diagnoses URI (upper respiratory infection) J06.9 Hyperlipidemia LDL goal <70 E78.5 Hypertension I10 Diabetes mellitus E11.9
[2022-12-17 16:15] VITALS: BP 140/90; PULSE 94; O2SAT 96; BMI 48.5
[2022-12-17 16:35] VITALS: BP 136/86
== END 2022-12-17 16:43 | disposition home or self-care (01) ==
PROVIDERS: PCP Internal Medicine; Visit Provider Nurse Practitioner Family
DX: J06.9 Acute upper respiratory infection, unspecified (principal); E78.5 Hyperlipidemia, unspecified; I10 Essential (primary) hypertension; E11.9 Type 2 diabetes mellitus without complications
CPT/HCPCS: 83036; 99214

== ENCOUNTER 2022-12-17 16:26 | Outpatient (REF) | payer OTHER, SELFPAY | END 2022-12-17 16:27 | disposition home or self-care (01) | LOC: HO.LAB 16:26 | PROVIDERS: Visit Provider Nurse Practitioner Family | DX: Z13.89 Encounter for screening for other disorder (principal) ==

== ENCOUNTER 2023-04-06 08:50 | Emergency (ER) | payer OTHER, SELFPAY ==
--- NOTE | ~2023-04-06 | US_ITS ---
EXAMINATION: US ABDOMEN LIMITED CLINICAL INFORMATION: Right upper quadrant pain with abnormal LFTs. COMPARISON: Ultrasound abdomen 11/26/2019 TECHNIQUE: Real-time imaging of the right upper quadrant abdominal viscera. FINDINGS: PANCREAS: The pancreas appears unremarkable, without masses or ductal dilatation, with the exception of the tail which is obscured by bowel gas. LIVER: Again noted is an enlarged liver measuring 18.3 cm in length with increased echogenicity consistent with hepatic steatosis, unchanged from 11/26/2019. The liver contour is normal. No focal hepatic lesion. There is no intrahepatic biliary duct dilatation seen. GALLBLADDER: Surgically absent. COMMON BILE DUCT: Normal in caliber measuring 0.4 cm in diameter. RIGHT KIDNEY: Normal. No hydronephrosis. No renal calculi or focal parenchymal lesions. The kidney measures 11.3 cm in maximum dimension. FREE FLUID: None. US/US abdomen limited IMPRESSION: Enlarged fatty liver.
[2023-04-06 08:53] VITALS: BP 117/98; PULSE 110; RESP 18; TEMP 36.6; O2SAT 98; BMI 45.0
[2023-04-06 10:04] LABS: IDNOW Serial# 152EDE1D; Influenza A Negative (Negative); Influenza B2 Negative (Negative)
[2023-04-06 10:05] LABS: COVID-19 Test Negative (Negative); IDNOW Serial# 08D9AD1C
[2023-04-06 10:19] LABS: MANUAL DIFF FLAG NO
[2023-04-06 10:20] LABS: Basophils Percent Auto 0.1 % (0-2); Eosinophils Percent Auto 0.1 % (0-4); Hematocrit 44.2 % (37.0-47.0); Hemoglobin 14.6 g/dl (12.0-16.0); Imm Gran Abs Auto 0.04 X10*3/uL (0.00-0.03); Imm Gran Pct Auto 0.5 % (0.0-0.4); Lymphocytes Absolute Auto 1.1 X10*3/uL (1.2-4.9); Lymphocytes Percent Auto 13.8 % (20-40); Mean Corpuscular Volume 84.7 fL (80.0-98.0); Mean Platelet Volume 10.3 fL (9.4-12.3); Monocytes Absolute Auto 0.7 X10*3/uL (0.1-1.2); Neutrophils Absolute Auto 6.3 x10*3/uL (2.0-8.3); Neutrophils Percent Auto 77.5 % (45-73); Platelet Count 245 X10*3/uL (160-400); Red Blood Count 5.22 X10*6/uL (4.20-5.50); White Blood Count 8.1 X10*3/uL (4.8-10.8)
[2023-04-06] MEDS: Ondansetron ODT 4 MG TAB.RAPDIS TRANSLINGU (10:26)
[2023-04-06] MEDS: Famotidine 20 MG TABLET PO (10:26)
[2023-04-06 10:34] LABS: Alanine Aminotransferase 108 U/L (0-31); Albumin Level 3.7 g/dL (3.5-5.0); Alkaline Phosphatase 129 U/L (39-117); Anion Gap 14 (12-20); Aspartate Amino Transferase 78 U/L (5-31); Bilirubin Direct 0.5 mg/dL (0.0-0.5); Bilirubin Total 1.2 mg/dL (0.0-1.0); Blood Urea Nitrogen 15 mg/dL (9-16); Calcium 8.8 mg/dL (8.4-10.2); Carbon Dioxide 24 mmol/L (22-29); Chloride 101 mmol/L (96-108); Creatinine Clr Calc Pharmacy 108.6; Estimated Glomerular Filt Rate > 60; Glucose Random 285 mg/dL (60-115); Lipase 9 U/L (8-78); Sodium 135 mmol/L (135-145); Total Protein 7.1 g/dL (6.5-8.0)
[2023-04-06 11:18] VITALS: BP 157/85; PULSE 101; RESP 16; TEMP 37.1; O2SAT 94
[2023-04-06 11:40] LABS: Appearance Urine Clear; Color Urine Dark Yellow; Glucose Urine UA Negative (Negative); Leukocyte Esterase Urine Negative (Negative); Nitrite Urine Negative (Negative); Specific Gravity - Urine >= 1.030 (1.005-1.025); UMIC TRIGGER UACC YES; Urine Blood Negative (Negative); Urine Ketones Negative (Negative); Urine Protein 30 (1+) mg/dL (Neg-Trace)
[2023-04-06 11:54] LABS: Bacteria Urine 2+ (None Seen); Hyaline Casts Urine 0-2 /LPF (0-2); RBC Urine 0-2 /HPF (0-2); WBC Urine 0-5 /HPF (0-5)
[2023-04-06 12:44] VITALS: BP 157/87; PULSE 83; RESP 18; TEMP 37.1; O2SAT 97
--- NOTE | 2023-04-06 15:52 | ED.NAVMDI ---
HPI - Nausea/Vomiting/Diarrhea General Chief complaint: Nausea/Vomiting/Diarrhea Stated complaint: Vomiting Diarrhea Time Seen by Provider: 04/06/23 09:28 Source: patient Mode of arrival: ambulatory Limitations: no limitations History of Present Illness HPI Narrative: Nausea, vomiting and diarrhea with increased abdominal pain MD elicited complaint: nausea, vomiting and diarrhea Onset (ago): day(s) Related Data Previous Rx's Medication Instructions Recorded blood pressure monitor #1 ea 05/26/21 cyclobenzaprine 10 mg tablet 10 mg PO Q8H Muscle spasm #10 tabs 05/26/21 blood sugar diagnostic (FreeStyle #100 ea 09/25/21 Lite Strips) blood-glucose meter (FreeStyle #1 ea 09/25/21 Lite Meter kit) lancets 28 gauge (FreeStyle #100 ea 09/25/21 Lancets) duloxetine 30 mg capsule,delayed 30 mg PO DAILY 30 days #30 caps 06/02/22 release metformin 500 mg tablet 500 mg PO BID 90 days #180 tabs 10/13/22 amlodipine 2.5 mg tablet 2.5 mg PO DAILY 90 days #90 tabs 12/06/22 hydrochlorothiazide 25 mg tablet 25 mg PO DAILY 90 days #90 tabs 12/06/22 metoprolol tartrate 50 mg tablet 50 mg PO DAILY 90 days #90 tabs 12/06/22 benzonatate 100 mg capsule 100 mg PO TID PRN cough #21 caps 12/17/22 fluticasone propionate 50 1 spray intranasal DAILY #100 mL 12/17/22 mcg/actuation nasal spray,suspension (Flonase Allergy Relief) rosuvastatin 20 mg tablet 20 mg PO BEDTIME 90 days #90 tabs 03/05/23 ondansetron 4 mg disintegrating 4 mg PO Q8H 4 days #12 tabs 04/06/23 tablet pantoprazole 40 mg tablet,delayed 40 mg PO DAILY #20 tabs 04/06/23 release (Protonix) Allergies Allergy/AdvReac Type Severity Reaction Status Date / Time sumatriptan Allergy Mild Itching Verified 04/06/23 08:52 Penicillins [PCN] Allergy Unknown hives & Verified 04/06/23 08:52 rash seafood Allergy Mild Itching Uncoded 04/06/23 08:52 Review of Systems Review of Systems: Yes all other systems are reviewed and are negative Neurologic: Denies Sensory deficit (Neuro) [facility] Past Medical History Medical History Tubular adenoma On beta sami at home Morbid obesity Fibromyalgia Mitral valve prolapse HTN (hypertension) Surgical History Hx of colonoscopy Hx laparoscopic cholecystectomy History of tubal ligation History of hysterectomy History of Family History Family History Father Chronic mental illness Prostate cancer Lung cancer Alzheimers disease Mother Non-Hodgkin lymphoma Social History Social History Household Members: Family Housing: House Alcohol intake: never Comment: pt resting comfortably Patient Tobacco Use Status: Never used Tobacco Smoked in Last 30 Days: No e-Cigarette/Vaping Use: Never Used Second Hand Smoke Exposure: No Use of substances other than those prescribed or required for medical reasons: No Advance Directives: No Advance Directives Information Provided: Yes service: No Current occupational status: employed Current occupational exposures/hazards: No Cognitive needs: No Hearing needs: No Vision needs: Yes Physical Exam Vital Signs: Vital Signs: Last Vital Signs Temp 98.8 F 04/06/23 12:44 Pulse 83 04/06/23 12:44 Resp 18 04/06/23 12:44 BP 157/87 H 04/06/23 12:44 Pulse Ox 97 04/06/23 12:44 O2 Del Method Room Air 04/06/23 12:44 BMI result Body Mass Index 45.0 Const: Other: obese female with epigastric pain Orientation/consciousness: oriented to person and patient oriented x3 Limitations: no limitations HEENT: Head: Yes normal to inspection Ears: external ears normal General nose exam: Normal external nose present Mouth: Normal oral and palatal mucosa present and oropharynx normal Throat: Yes posterior oropharynx normal Eyes: General: appearance normal, both eyes and all related structures Neck: Other: supple Neck: Yes normal visual inspection Chest: Chest palpation & inspection: normal inspection of the chest Resp: Auscultation: clear to auscultation bilaterally Cardio: Jugular venous distension: no JVD Rate: regular rate Rhythm: regular rhythm Heart sounds: S1 normal heart sound present and S2 normal heart sound present GI: Other: epigastric tenderness to palpation : General: Yes no CVA tenderness Back/Spine/Pelvis: Back: no CVA tenderness Skin: General skin exam: no rashes or lesions noted Neuro: General: oriented to person and patient oriented x3 Cranial nerves: Yes CN's II-XII intact bilaterally Motor exam (neuro): 5/5 motor strength present throughout Sensory Exam: No Sensory deficit (Neuro) Extrem: General: Yes normal to inspection Psych: Appearance: grossly normal Course Reevaluation(s) Reevaluation #1: patient with elevated LFTs, fatty liver seen on ultrasound Time: 15:55 Medications Administered Discontinued Medications Generic Name Dose Route Start Last Admin Trade Name Freq PRN Reason Stop Dose Admin Famotidine 20 mg 04/06/23 10:06 04/06/23 10:26 Famotidine 20 Mg Tablet PO 04/06/23 10:07 20 mg ONCE ONE Administration Ondansetron HCl 4 mg 04/06/23 10:06 04/06/23 10:26 Ondansetron Odt 4 Mg Tab.Rapdis TRANSLINGU 04/06/23 10:07 4 mg ONCE ONE Administration Medical Decision Making Differential Diagnosis Differential Diagnoses: The differential diagnosis associated with the presentation includes (viral gastroenteritis, hepatitis, pancreatitis were all considered) Admission/Observation Consideration of admission/observation: Escalation of care including admission/observation considered (upon arrival admission was considered) Lab Data 04/06/23 10:16 04/06/23 10:16 Labs: Lab Results 04/06/23 04/06/23 04/06/23 Range/Units 09:30 10:16 11:19 WBC 8.1 (4.8-10.8) X10*3/uL RBC 5.22 (4.20-5.50) X10*6/uL Hgb 14.6 (12.0-16.0) g/dl Hct 44.2 (37.0-47.0) % MCV 84.7 (80.0-98.0) fL MCH 28.0 (27.0-33.0) pg MCHC 33.0 (31.0-35.0) g/dl RDW 13.0 (11.0-16.0) % Plt Count 245 (160-400) X10*3/uL MPV 10.3 (9.4-12.3) fL Immature Gran % (Auto) 0.5 H (0.0-0.4) % Neut % (Auto) 77.5 H (45-73) % Lymph % (Auto) 13.8 L (20-40) % [place] % (Auto) 8.0 (2-11) % Eos % (Auto) 0.1 (0-4) % Baso % (Auto) 0.1 (0-2) % Lymph # (Auto) 1.1 L (1.2-4.9) X10*3/uL [place] # (Auto) 0.7 (0.1-1.2) X10*3/uL Eos # (Auto) 0.0 (0.0-0.4) X10*3/uL Baso # (Auto) 0.0 (0.0-0.2) X10*3/uL Abs Immat Gran (auto) 0.04 H (0.00-0.03) X10*3/uL Absolute Neuts (auto) 6.3 (2.0-8.3) x10*3/uL Absolute Nucleated RBC 0.000 (0.0-0.012) X10*3/uL Nucleated RBC % (auto) 0.0 (0.0-0.2) /100WBC Sodium 135 (135-145) mmol/L Potassium 4.0 (3.3-5.1) mmol/L Chloride 101 (96-108) mmol/L Carbon Dioxide 24 (22-29) mmol/L Anion Gap 14 (12-20) BUN 15 (9-16) mg/dL Creatinine 0.76 (0.5-1.4) mg/dL Estim Creat Clear Calc 108.6 Estimated GFR > 60 Random Glucose 285 H (60-115) mg/dL Calcium 8.8 (8.4-10.2) mg/dL Total Bilirubin 1.2 H (0.0-1.0) mg/dL Direct Bilirubin 0.5 (0.0-0.5) mg/dL AST 78 H (5-31) U/L ALT 108 H (0-31) U/L Alkaline Phosphatase 129 H (39-117) U/L Total Protein 7.1 (6.5-8.0) g/dL Albumin 3.7 (3.5-5.0) g/dL Lipase 9 (8-78) U/L Urine Color Dark Yellow Urine Appearance Clear Urine pH 6.0 (5.0-9.0) Ur Specific [place] >= 1.030 H (1.005-1.025) Urine Protein 30 (1+) H (Neg-Trace) mg/dL Urine Glucose (UA) Negative (Negative) mg/dL Urine Ketones Negative (Negative) mg/dL Urine Blood Negative (Negative) Urine Nitrite Negative (Negative) Ur Leukocyte Esterase Negative (Negative) Urine RBC 0-2 (0-2) /HPF Urine WBC 0-5 (0-5) /HPF Ur Squamous Epith Cells 6-10 (0-2) /HPF Urine Bacteria 2+ (None Seen) Hyaline Casts 0-2 (0-2) /LPF COVID-19 (SANTI) Negative (Negative) COVID-19 Clin Com See Note Influenza Type A (MOISE) Negative (Negative) Influenza Type B (MOISE) Negative (Negative) Influenza A & B Note See Note Independent Interpretation I performed an independent interpretation of an: Ultrasound (no biliary dilatation) Radiology Impression Discussion of test interpretation with radiology: I have reviewed the radiologist's reading. (and agree) External Record Review External record reviewed: Prior outpatient labs Tests considered The following testing was considered but not selected: CT of abdomen considered but US chosen do to lft abnormalities Prescription Management I considered prescription management with: Antibiotic (no bacterial infection found) Chronic Conditions Patient?s care impacted by: Other (obesity) Discharge Plan Discharge Clinical Impression: Morbid obesity, Fatty liver disease, nonalcoholic, Viral gastroenteritis Patient Disposition: Home, Self-Care Instructions: Liver Disease Diet (DC), Acute Nausea and Vomiting (ED), Non-Alcoholic Fatty Liver Disease (ED) Prescriptions: New pantoprazole [Protonix] 40 mg tablet,delayed release (DR/EC) 40 mg PO DAILY Qty: 20 0RF ondansetron 4 mg tablet,disintegrating 4 mg PO Q8H 4 Days Qty: 12 0RF No Action metformin 500 mg tablet 500 mg PO BID 90 Days Qty: 180 1RF metoprolol tartrate 50 mg tablet 50 mg PO DAILY 90 Days Qty: 90 3RF hydrochlorothiazide 25 mg tablet 25 mg PO DAILY 90 Days Qty: 90 3RF amlodipine 2.5 mg tablet 2.5 mg PO DAILY 90 Days Qty: 90 3RF rosuvastatin 20 mg tablet 20 mg PO BEDTIME 90 Days Qty: 90 1RF cyclobenzaprine 10 mg tablet 10 mg PO Q8H Qty: 10 0RF (DME) blood pressure monitor Kit See Rx Instructions .Route Qty: 1 0RF Rx Instructions: As directed duloxetine 30 mg capsule,delayed release(DR/EC) 30 mg PO DAILY 30 Days Qty: 30 0RF fluticasone propionate [Flonase Allergy Relief] 50 mcg/actuation spray,suspension 1 spray intranasal DAILY Qty: 100 0RF Rx Instructions: administer into each nostril benzonatate 100 mg capsule 100 mg PO TID PRN (Reason: cough) Qty: 21 0RF (DME) blood-glucose meter [FreeStyle Lite Meter] Kit See Rx Instructions .Route Qty: 1 0RF Rx Instructions: As directed (DME) FreeStyle Lite Strips Strip See Rx Instructions .Route Qty: 100 2RF Rx Instructions: use 1 strip once a day (DME) lancets [FreeStyle Lancets] 28 gauge misc See Rx Instructions .Route Qty: 100 2RF Rx Instructions: Use 1 lancet once a day Referrals: Bailey Francois MD [Primary Care Provider] - 3 days
[2023-04-06 15:53] VITALS: BP 149/83; PULSE 97; RESP 16; TEMP 37; O2SAT 97
== END 2023-04-06 16:18 | disposition home or self-care (01) ==
PROVIDERS: Emergency Provider Emergency Medicine; PCP Internal Medicine
DX: A08.4 Viral intestinal infection, unspecified (principal); R11.2 Nausea with vomiting, unspecified; K76.0 Fatty (change of) liver, not elsewhere classified; Z79.899 Other long term (current) drug therapy; Z11.52 Encounter for screening for COVID-19
CPT/HCPCS: 76705; 80048; 80076; 81001; 83690; 85025; 87502; 87635; 99284

== ENCOUNTER 2023-04-17 07:12 | Outpatient (REF) | payer OTHER, SELFPAY ==
[2023-04-17 08:27] LABS: Alanine Aminotransferase 29 U/L (0-31); Albumin Level 3.8 g/dL (3.5-5.0); Alkaline Phosphatase 112 U/L (39-117); Anion Gap 13 (12-20); Aspartate Amino Transferase 21 U/L (5-31); Bilirubin Total 0.5 mg/dL (0.0-1.0); Blood Urea Nitrogen 16 mg/dL (9-16); Calcium 9.4 mg/dL (8.4-10.2); Carbon Dioxide 28 mmol/L (22-29); Chloride 104 mmol/L (96-108); Cholesterol 121 mg/dL (<200); Estimated Glomerular Filt Rate > 60; Glucose Fasting 174 mg/dL (60-99); HDL Cholesterol 38 mg/dL (>40); LDL Cholesterol Calculated 61 mg/dL (<100); Potassium 4.3 mmol/L (3.3-5.1); Sodium 141 mmol/L (135-145); Total Protein 7.1 g/dL (6.5-8.0); Triglycerides 113 mg/dL (<150)
[2023-04-17 08:47] LABS: Vitamin D 25-OH Total 27.3 ng/mL (>30)
[2023-04-17 09:49] LABS: Creatinine Urine 131.04 mg/dL
== END 2023-04-17 07:13 | disposition home or self-care (01) ==
LOC: HO.LAB 07:12
PROVIDERS: PCP Internal Medicine; Visit Provider Internal Medicine
DX: E55.9 Vitamin D deficiency, unspecified (principal); E78.5 Hyperlipidemia, unspecified; E11.9 Type 2 diabetes mellitus without complications
CPT/HCPCS: 36415; 80053; 80061; 82043; 82306; 82570

== ENCOUNTER 2023-06-01 10:54 | Outpatient (REF) | payer OTHER, SELFPAY ==
[2023-06-02 05:09] LABS: CT PCR NOT DETECTED (Not Detect.); NG PCR NOT DETECTED (Not Detect.)
[2023-06-02 13:56] LABS: BV Int Neg Control Negative (Negative); BV Int Pos Control Positive (Positive)
[2023-06-03 18:59] LABS: HPV mRNA E6/E7 rflx Not Detected (Not Detected)
== END 2023-06-01 10:55 | disposition home or self-care (01) ==
LOC: HO.LAB 10:54
PROVIDERS: PCP Internal Medicine; Visit Provider Advanced Practice Midwife
DX: Z01.419 Encounter for gynecological examination (general) (routine) without abnormal findings (principal); Z11.51 Encounter for screening for human papillomavirus (HPV); Z20.2 Contact with and (suspected) exposure to infections with a predominantly sexual mode of transmission
CPT/HCPCS: 0353U; 87480; 87510; 87624; 87660; 88142; 99386

== ENCOUNTER 2023-06-01 10:54 | Outpatient (AMB) | payer OTHER, SELFPAY ==
[2023-06-01 11:03] VITALS: BP 148/88; BMI 45.7
--- NOTE | 2023-06-01 11:03 | A.OFFVIS_ITS ---
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 Looms Pegger Required: No Information Interpreted: clinical only Enterprise Resource Planning Consultant: Enterprise Resource Planning Consultant Present Allergies sumatriptan Allergy (Mild, Verified 06/01/23 11:04) Itching Penicillins [PCN] Allergy (Unknown, Verified 06/01/23 11:04) hives & rash seafood Allergy (Mild, Uncoded 06/01/23 11:04) Itching Medication List - Last Reconciled 06/01/23 by Imani Funes CNM amlodipine 2.5 mg PO DAILY 90 days benzonatate 100 mg PO TID PRN blood pressure monitor As directed blood sugar diagnostic (FreeStyle Lite Strips) use 1 strip once a day blood-glucose meter (FreeStyle Lite Meter kit) As directed cyclobenzaprine 10 mg PO Q8H duloxetine 30 mg PO DAILY 30 days fluticasone propionate 50 mcg/actuation (Flonase Allergy Relief) 1 spray intranasal DAILY hydrochlorothiazide 25 mg PO DAILY 90 days lancets (FreeStyle Lancets) Use 1 lancet once a day metformin 500 mg PO BID 90 days metoprolol tartrate 50 mg PO DAILY 90 days ondansetron 4 mg PO Q8H 4 days pantoprazole (Protonix) 40 mg PO DAILY rosuvastatin 20 mg PO BEDTIME 90 days Is last menstrual period known: No Post menopausal: Yes 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 She has fibromyalgia that bothers her a lot as well as high blood pressure and some heart problems and diabetes. She does have a primary care provider and she does see her she says she has had blood work in a while but her last blood sugar was 87 at home but she did not check it the last couple of days she does say that it is usually okay she works very long hours she has to get up at 3 in the morning to be to work at 04:00 at [employer] on [facility] and works to 13:00 and is exhausted at the end of her very busy shift and she walks to and from work. She has not had a mammogram in a couple of years she had been referred to the weight management program and did a video but then did not hear from them again. She says it is very hard to lose weight she is very swollen and has been told the really she does have mitral valve issues as well. She has not been sexually active since 2019 and she had a hysterectomy many years ago because of bleeding. [facility] Medical History (Updated 06/01/23 @ 11:55 by Imani Funes CNM) Tubular adenoma On beta sami at home Morbid obesity Fibromyalgia Mitral valve prolapse HTN (hypertension) Surgical History (Updated 06/01/23 @ 11:55 by Imani Funes CNM) Hx of colonoscopy Hx laparoscopic cholecystectomy History of tubal ligation History of hysterectomy History of Family History Father Chronic mental illness Prostate cancer Lung cancer Alzheimers disease Mother Non-Hodgkin lymphoma Social History Household Members: Family Housing: House Alcohol intake: never Comment: pt resting comfortably Patient Tobacco Use Status: Never used Tobacco e-Cigarette/Vaping Use: Never Used Second Hand Smoke Exposure: No service: No Current occupational status: employed Current occupational exposures/hazards: No Cognitive needs: No Hearing needs: No Vision needs: Yes Female Reproductive History Menstrual Duration of menses: 3-5 days control method: permanent sterilization Total pregnancies: 5 Full term: 4 History of abnormal pap smear: No (previous pap unknown) Physical Exam Vital Signs: Last Vital Signs BP 148/88 H 06/01/23 11:03 BMI result Body Mass Index 45.7 Const Nutritional Appearance: obese and Edematous Chest Other: Normal breast exam no masses dimpling or peau d'orange Other: There is some scaliness her skin on buttocks and upper thighs but no redness or findings consistent with yeast at vulva or labia. Speculum Exam - Vagina: normal appearance of the vagina and other Speculum Exam - Cervix: normal appearance of the cervix and Other cervical findings present (limited views) Bimanual exam- vagina & uterus: other (uterus difficult to assess 2' habitus) Bimanual Exam- Adnexa, other: Other (palpation of adnexae limited 2' habitus) Assessment & Plan Assessment & Plan (1) Women's annual routine gynecological examination: Code(s): Z01.419 - Encounter for gynecological examination (general) (routine) without abnormal findings (2) Diabetes mellitus: Code(s): E11.9 - Type 2 diabetes mellitus without complications (3) Morbid obesity: Code(s): E66.01 - Morbid (severe) obesity due to excess calories (4) Fibromyalgia: Code(s): M79.7 - Fibromyalgia (5) History of hysterectomy: Comment: due to benign reasons - still has ovaries Code(s): Z90.710 - Acquired absence of both cervix and uterus (6) HTN (hypertension): Code(s): I10 - Essential (primary) hypertension (7) Mitral valve problem: Code(s): I05.9 - Rheumatic mitral valve disease, unspecified Plan -----Discussed in this visit the following: healthy balanced diet, regular and consistent exercise, getting recommended health screens, doing the best she can for her particular health concerns, kegel exercises, pap smear screening and followup recommendations, mammography screening and SBE, normal changes in cycles in her life stage--- . Simply thighs with the very real challenges of working a very difficult long hard job that necessitates her getting up at 3 in the morning to walk to work and being exhausted from it after that reviewed the challenges of trying to eat well and find time for exercise in the setting of all of this especially also given her fibromyalgia and the mitral valve issues discussed her efforts to lose weight and exercise encouraged her to not lose use hope and that it would be worth her while and could only help her health. She says she is going to call to make another appointment with her primary care provider and she will also be calling to schedule her mammogram which she missed last year. Also encouraged her to keep an eye on her diabetes and I gave her the pamphlet and showed her the number to call for the weight management program if she is still interested discussed how sometimes skipping meals does not help but it is what we that makes a difference as well review that the weight management program as I understand it is very strict. Encouraged considering taking a rest after her long work schedule and then perhaps going for a walk and building up her pace. Pap smear was done from vaginal cuff cultures also done patient states she is irritated externally but not itchy at all. Orders: Orders Pap Smear Today Z01.419 - Encounter for gynecological examination (general) (routine) without abnormal findings Bacterial Vaginosis Panel Today Z20.2 - Contact with and (suspected) exposure to infections with a predominantly sexual mode of transmission CT NG by PCR Today Z01.419 - Encounter for gynecological examination (general) (routine) without abnormal findings Quality Reporting (2019) Adult ([facility] 138/04/08/68) Smoking risk assessment performed?: Yes Patient Tobacco Use Status: Never used Tobacco Coding Level of Care Code New Pt Prev Care 40-64y(13296) Diagnoses Women's annual routine gynecological examination Z01.419 Diabetes mellitus E11.9 Morbid obesity E66.01 Fibromyalgia M79.7 History of hysterectomy Z90.710 HTN (hypertension) I10 Mitral valve problem I05.9
== END 2023-06-01 11:55 | disposition home or self-care (01) ==
PROVIDERS: PCP Internal Medicine; Visit Provider Advanced Practice Midwife
DX: Z01.419 Encounter for gynecological examination (general) (routine) without abnormal findings (principal); E11.9 Type 2 diabetes mellitus without complications; E66.01 Morbid (severe) obesity due to excess calories; M79.7 Fibromyalgia; Z90.710 Acquired absence of both cervix and uterus; I10 Essential (primary) hypertension; I05.9 Rheumatic mitral valve disease, unspecified
CPT/HCPCS: 99386

== ENCOUNTER 2023-06-24 11:06 | Outpatient (REF) | payer OTHER, SELFPAY | END 2023-06-24 11:07 | disposition home or self-care (01) | LOC: HO.MAMMO 11:06 | PROVIDERS: PCP Internal Medicine; Visit Provider Internal Medicine | DX: Z12.31 Encounter for screening mammogram for malignant neoplasm of breast (principal) | CPT/HCPCS: 77063; 77067 ==

== ENCOUNTER → 2023-06-24 11:15 | Outpatient (BNV) | payer OTHER, SELFPAY | PROVIDERS: PCP Internal Medicine; Visit Provider Radiology Diagnostic Radiology | DX: Z12.31 Encounter for screening mammogram for malignant neoplasm of breast (principal) | CPT/HCPCS: 77063; 77067 ==

== ENCOUNTER 2023-08-05 12:59 | Outpatient (REF) | payer OTHER, SELFPAY ==
[2023-08-10 10:44] LABS: HPV mRNA E6/E7 Not Detected (Not Detected)
== END 2023-08-05 13:00 | disposition home or self-care (01) ==
LOC: HO.LAB 12:59
PROVIDERS: PCP Internal Medicine; Visit Provider Advanced Practice Midwife
DX: Z01.419 Encounter for gynecological examination (general) (routine) without abnormal findings (principal); E66.01 Morbid (severe) obesity due to excess calories; Z90.710 Acquired absence of both cervix and uterus; Z87.898 Personal history of other specified conditions
CPT/HCPCS: 36415; 87624; 88175; 99212

== ENCOUNTER 2023-08-05 12:59 | Outpatient (AMB) | payer OTHER, SELFPAY ==
[2023-08-05 13:15] VITALS: BP 132/78; BMI 44.3
--- NOTE | 2023-08-05 13:15 | A.OFFVIS_ITS ---
Vital Signs 08/05/23 13:15 Height 5 ft 4 in Weight 258 lb BMI 44.3 BP 132/78 Intake Visit Reasons: Repeat pap Information Interpreted: clinical only Customer Engagement Analyst: Customer Engagement Analyst Present Allergies sumatriptan Allergy (Mild, Verified 08/05/23 13:19) Itching Penicillins [PCN] Allergy (Unknown, Verified 08/05/23 13:19) hives & rash seafood Allergy (Mild, Uncoded 08/05/23 13:19) Itching Post menopausal: Yes Do you need a note to return to daycare/school/sports/work: No HPI HPI Repeat pap: Details: Patient is here to get her Pap smear repeated she has a history of a hyste rectomy in about 2004 in [place] done because of heavy bleeding she never had an abnormal Pap smear. She was seen in May for Pap smear but it came back unsatisfactory due to insufficient cellularity. [facility] Medical History Tubular adenoma On beta sami at home Morbid obesity Fibromyalgia Mitral valve prolapse HTN (hypertension) Surgical History Hx of colonoscopy Hx laparoscopic cholecystectomy History of tubal ligation History of hysterectomy History of Family History Father Chronic mental illness Prostate cancer Lung cancer Alzheimers disease Mother Non-Hodgkin lymphoma Social History Household Members: Family Housing: House Alcohol intake: never Comment: pt resting comfortably Patient Tobacco Use Status: Never used Tobacco e-Cigarette/Vaping Use: Never Used Second Hand Smoke Exposure: No service: No Current occupational status: employed Current occupational exposures/hazards: No Cognitive needs: No Hearing needs: No Vision needs: Yes Female Reproductive History Menstrual Age of Menarche: 11 control method: permanent sterilization Date of last pap smear: 06/02/23 (unsatisfactory,previous pap unknown date) Physical Exam Vital Signs: Last Vital Signs BP 132/78 08/05/23 13:15 BMI result Body Mass Index 44.3 Other: Speculum exam done patient has had hysterectomy so cervix not visualized. Whitish mucus ,normal appearing pink vaginal enrique and cuff. Pap smear done with spatula and broom. Quality Reporting (2019) Adult ([facility] 138/04/08/68) Smoking risk assessment performed?: Yes Patient Tobacco Use Status: Never used Tobacco Results Reviewed Results Reviewed: Name: Eusebia Rowe Age/Sex: 52/F Attending: Imani Funes CNM : 1970 Submitted by: Imani Funes CNM Copies to: Bailey Francois MD MR #: [id number] Status: DEP REF Collected: 06/01/23 Location: .LAB Received: 06/02/23 Interpretation Unsatisfactory. Scant cellularity. HPV mRNA E6/E7: NOT DETECTED This assay detects E6/E7 viral messenger RNA (mRNA) from 14 high-risk HPV types (16, 18, 31, 33, 35, 39, 45, 51, 52, 56, 58, 59, 66, 68) HPV testing performed by [facility], [place], [place]. See reference laboratory portion of the EMR for entire report. Clinical Information LMP: No LMP Previous PAP test: Unknown date/findings Material Received ThinPrep-Cervical Copies To Imani Funes CNM [address] [place] [address] [address]. [address] [place] [address] Bailey Francois MD [address] [place] [address] [address]. [address] [place] [address] Electronically Signed By: JERZY Newell (ASCP) 06/22/23 0715 The Pap Test is a screening procedure with the inherent possibility of both false negative and false positive results. Results should be interpreted in the context of historic and current clinical findings. Reliability of the Pap Test is enhanced by performing the test on a regular repetitive basis. Patient: Eusebia Rowe Age/Sex: 52/F MR#: [id number] Page 1 of 1 Assessment & Plan Assessment & Plan (1) Cervical cancer screening: Comment: post hysterectomy pap ( difficult 2' habitus)= unsatisfactory, neg hpv. will need repeat in 2-4 months; Pap smear repeated 08/05/2023. Code(s): Z12.4 - Encounter for screening for malignant neoplasm of cervix Category: Medical (2) History of hysterectomy: Comment: due to benign reasons - still has ovaries Code(s): Z90.710 - Acquired absence of both cervix and uterus Category: Surgical (3) Morbid obesity: Code(s): E66.01 - Morbid (severe) obesity due to excess calories Category: Medical Plan Discussed the reason for the repeat Pap smear just because of insufficient cellular already though the HPV testing negative she never had an abnormal Pap smear hysterectomy was done for heavy bleeding. She is doing well her best to stay cool her son drove her here she has on the 2nd floor apartment building and she keeps the her conditioning going she gets swollen in the heat we are in the midst heat wave currently. Speculum exam was done Pap smear was done with use of spatula and cervical broom of vaginal cuff and vaginal enrique, no inflammation bleeding very normal appearing whitish mucus seen. If this Pap smear is negative next Pap smear would be 5 years we will see her for her annual exams. Coding Level of Care Code Est Pt Level 3 (96010) Diagnoses Cervical cancer screening Z12.4 History of hysterectomy Z90.710 Morbid obesity E66.01
== END 2023-08-05 13:52 | disposition home or self-care (01) ==
LOC: HO.HWSM 12:59
PROVIDERS: PCP Internal Medicine; Visit Provider Advanced Practice Midwife
DX: Z12.4 Encounter for screening for malignant neoplasm of cervix (principal); Z90.710 Acquired absence of both cervix and uterus; E66.01 Morbid (severe) obesity due to excess calories
CPT/HCPCS: 99213

== ENCOUNTER 2023-08-10 15:20 | Outpatient (AMB) | payer OTHER, SELFPAY ==
--- NOTE | 2023-08-10 15:23 | A.OFFPC_ITS ---
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 Accompanied by: Self / Same As Patient Allergies sumatriptan Allergy (Mild, Verified 08/10/23 15:40) Itching Penicillins [PCN] Allergy (Unknown, Verified 08/10/23 15:40) hives & rash seafood Allergy (Mild, Uncoded 08/10/23 15:40) Itching Medication List - Last Reconciled 08/10/23 by Bailey Akers MD amlodipine 2.5 mg PO DAILY 90 days blood pressure monitor As directed blood sugar diagnostic (FreeStyle Lite Strips) use 1 strip once a day blood-glucose meter (FreeStyle Lite Meter kit) As directed hydrochlorothiazide 25 mg PO DAILY 90 days lancets (FreeStyle Lancets) Use 1 lancet once a day metformin 500 mg PO BID 90 days metoprolol tartrate 50 mg PO DAILY 90 days pantoprazole (Protonix) 40 mg PO DAILY rosuvastatin 20 mg PO BEDTIME 90 days Tobacco use date assessed: 08/10/23 Dental Screening Dental Screen Date: 08/10/23 Did you have a dental visit in the last 12 months?: No Did you have a dental problem in the last 6 months where you did not have access to dental care?: No Was dental information given to patient?: Patient has dentist HPI HPI Comments History of Present Illness Details This is a 52-year-old female with diabetes mellitus type 2, hypertension, hyperlipidemia and morbid obesity that comes today for follow-up on her conditions. A1c elevated and I will start her on Trulicity. A1c goal should be less than 70. Blood pressure stable. LDL within goal. She is morbidly obese with a BMI of 46 and will think about going to weight management. Has some problems with transportation that needs to be resolved 1st. No chest pain or shortness on breath. [facility] Medical History (Updated 08/10/23 @ 20:34 by Bailey Akers MD) Tubular adenoma On beta sami at home Morbid obesity Fibromyalgia Mitral valve prolapse HTN (hypertension) Surgical History Hx of colonoscopy Hx laparoscopic cholecystectomy History of tubal ligation History of hysterectomy History of Family History Father Chronic mental illness Prostate cancer Lung cancer Alzheimers disease Mother Non-Hodgkin lymphoma Social History Household Members: Family Housing: House Alcohol intake: never Comment: pt resting comfortably Patient Tobacco Use Status: Never used Tobacco e-Cigarette/Vaping Use: Never Used Second Hand Smoke Exposure: No service: No Current occupational status: employed Current occupational exposures/hazards: No Cognitive needs: No Hearing needs: No Vision needs: Yes Female Reproductive History Menstrual Age of Menarche: 11 Questionnaire PHQ-9 Over the last 2 weeks, how often have you been bothered by any of the following problems? 1. Little interest or pleasure in doing things: not at all 2. Feeling down, depressed, or hopeless: not at all 3. Trouble falling or staying asleep, or sleeping too much: not at all 4. Feeling tired or having little energy: not at all 5. Poor appetite or overeating: not at all 6. Feeling bad about yourself - or that you are a failure or have let yourself or your family down: not at all 7. Trouble concentrating on things, such as reading the newspaper or watching television: not at all 8. Moving or speaking so slowly that other people could have noticed. Or the opposite - being so fidgety or restless that you have been moving around a lot more than usual: not at all 9. Thoughts that you would be better off or of hurting yourself in some way: not at all Total score: 0 Source: Developed by Drs. Luis Daniel Martinez, Ewa Morales, Darnell Terrazas and colleagues, with an educational joselyn from [employer]. Thrive Questionnaire Date Thrive assessed: 08/10/23 I am a: Patient What is your living situation today?: I have a steady place to live Within the past 12 months, did the food you bought not last and you didn't have the money to get more?: Never true Within the past 12 months, did you worry whether your food would run out before you got money to buy more?: Never true Do you have trouble paying for medicines?: No Do you have trouble getting transportation to medical appointments?: No Do you have trouble paying your heating and electricity bill?: No Do you have trouble taking care of your child, family member or friend?: No Do you have trouble with day-to-day activities such as bathing, preparing meals, shopping, managing finances, etc.?: No Are you currently unemployed and looking for a job?: No Are you interested in more education?: No Please select the resources that you would like help with: None Currently or been in a relationship where the following occur: no concerns reported THRIVE Score: 0 AUDIT C Alcohol Use Questionnaire (AUDIT-C) 1. How often do you have a drink containing alcohol?: Never Total Score: 0 SHELLEY-7 AMB Questionnaire SHELLEY-7 Date SHELLEY - 7 assessed: 08/10/23 Feeling nervous, anxious, or on edge: 0 = Not at all Not being able to stop or control worryin = Not at all Worrying too much about different things: 0 = Not at all Trouble relaxin = Not at all Being so restless that it is hard to sit still: 0 = Not at all Becoming easily annoyed or irritable: 0 = Not at all Feeling afraid as if something awful might happen: 0 = Not at all Total SHELLEY-7 score (0-4 normal; 5-9 mild; 10-14 moderate; 15-21 severe): 0 Source: Developed by Drs. Luis Daniel Martinez, Ewa Morales, Darnell Terrazas and colleagues, with an educational joselyn from [employer]. Review of Systems Const All systems reviewed & are unremarkable except as noted in HPI and below Card Denies chest pain at rest, Denies chest pain with activity, Denies edema, Denies irregular heart rhythm, Denies claudication, Denies dyspnea, Denies dyspnea on exertion, Denies orthopnea, Denies paroxysmal nocturnal dyspnea and Denies slow heart rate Resp Denies cough, Denies dyspnea and Denies dyspnea on exertion Physical exam (Primary Care) Vital Signs: Last Vital Signs BP 130/86 08/10/23 15:29 BMI result Body Mass Index 46.0 Tobacco/Smoking Status: Tobacco use Status Tobacco use date assessed 08/10/23 08/10/23 15:35 Patient Tobacco Use Status Never used Tobacco 08/10/23 15:24 Tobacco use type 06/02/22 17:31 e-Cigarette/Vaping Use Never Used 08/10/23 15:24 PHQ-9: PHQ-9 Score PHQ-9: Total score 0 08/10/23 15:44 Thrive Assessment: Date of Thrive Assessment Date Thrive assessed 08/10/23 08/10/23 15:35 Currently or been in a relationship where the following occur: no concerns reported Resp Effort & Inspection: normal respiratory effort Auscultation: clear to auscultation bilaterally Cardio Jugular venous distension: no JVD Rate: regular rate Rhythm: regular rhythm Heart sounds: S1 normal heart sound present and S2 normal heart sound present Extrem General: Yes full ROM Results AMB Hemoglobin A1c AMB Hemoglobin A1c 7.8 % Last Edit by JOSE ARMANDO Sanchez on 08/10/23 15:3 6 Results Reviewed Results Reviewed: Laboratory Last Values Hgb A1c (Clinic) 7.8 % (4.0-6.0) H 08/10/23 15:25 Assessment and Plan Assessment & Plan (1) Diabetes mellitus: Code(s): E11.9 - Type 2 diabetes mellitus without complications Qualifiers: Diabetes mellitus type: type 2 Diabetes mellitus penitentiary insulin use: without penitentiary use Diabetes mellitus complication status: with hyperglycemia Qualified Code(s): E11.65 - Type 2 diabetes mellitus with hyperglycemia Plan: Continue metformin. Start Trulicity. A1c goal is equal or less than 7%. (2) Morbid obesity: Code(s): E66.01 - Morbid (severe) obesity due to excess calories Plan: Start diet and exercise. BMI goal is less than 30. (3) Hypertension: Code(s): I10 - Essential (primary) hypertension Qualifiers: Hypertension type: primary hypertension Qualified Code(s): I10 - Essential (primary) hypertension Plan: Continue amlodipine and hydrochlorothiazide. Blood pressure goal is equal or less than 130/80. (4) Hyperlipidemia LDL goal <70: Code(s): E78.5 - Hyperlipidemia, unspecified Plan: Continue statins. LDL goal is less than 70. Orders: Orders Comprehensive [place]. Panel Fast 4 Months E78.5 - Hyperlipidemia, unspecified XR knee RT 2V Today M25.561 - Pain in right knee AMB Hemoglobin A1c Today E11.9 - Type 2 diabetes mellitus without complications Lipid Panel 4 Months E78.5 - Hyperlipidemia, unspecified Microalbumin, Random (w Creat) 4 Months E11.9 - Type 2 diabetes mellitus without complications Vitamin D 25-OH Total 4 Months E55.9 - Vitamin D deficiency, unspecified Referrals Orthopedics Referral M25.561 - Pain in right knee Medications: New dulaglutide (Trulicity) 0.75 mg (0.5 mL) subcut QWEEK 90 days 6.5 mL 0RF E11.9 - Type 2 diabetes mellitus without complications Coding Level of Care Code Est Pt Level 4 (24534) Complex EM visit Add On G2211 Diagnoses Type 2 diabetes mellitus with hyperglycemia, without long-term current use of insulin E11.65 Diabetes mellitus type: type 2 Diabetes mellitus penitentiary insulin use: without predatory animal exterminator use Diabetes mellitus complication status: with hyperglycemia Morbid obesity E66.01 Primary hypertension I10 Hypertension type: primary hypertension Hyperlipidemia LDL goal <70 E78.5 Time Spent (min) 22
[2023-08-10 15:29] VITALS: BP 130/86; BMI 46.0
== END 2023-08-10 15:56 | disposition home or self-care (01) ==
PROVIDERS: PCP Internal Medicine; Visit Provider Internal Medicine
DX: E11.65 Type 2 diabetes mellitus with hyperglycemia (principal); E66.01 Morbid (severe) obesity due to excess calories; Z68.42 Body mass index [BMI] 45.0-49.9, adult; I10 Essential (primary) hypertension
CPT/HCPCS: 83036; 99214; G2211

== ENCOUNTER 2023-10-07 14:04 | Outpatient (REF) | payer OTHER, SELFPAY ==
--- NOTE | ~2023-10-07 | XR_ITS ---
EXAMINATION: XR KNEE, RIGHT CLINICAL INFORMATION: Right knee pain. COMPARISON: None available. TECHNIQUE: AP and lateral views of the right knee. FINDINGS: No fracture or joint effusion. Alignment is anatomic. Joint spaces are maintained. Small enthesopathic spur at the quadriceps tendon insertion on the patella. XR/XR knee RT 2V IMPRESSION: No acute osseous findings at the right knee. No significant degenerative arthritis. Electronically signed by: Jesus Manuel Villeda MD 11/01/2023 05:36 PM EDT
== END 2023-10-07 14:05 | disposition home or self-care (01) ==
LOC: HO.XRAY 14:04
PROVIDERS: PCP Internal Medicine; Visit Provider Internal Medicine
DX: M25.561 Pain in right knee (principal)
CPT/HCPCS: 73560

== ENCOUNTER 2023-12-21 15:19 | Outpatient (AMB) | payer OTHER, SELFPAY ==
--- NOTE | 2023-12-21 15:23 | A.OFFPC_ITS ---
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 Accompanied by: Self / Same As Patient Allergies sumatriptan Allergy (Mild, Verified 12/21/23 15:35) Itching Penicillins [PCN] Allergy (Unknown, Verified 12/21/23 15:35) hives & rash seafood Allergy (Mild, Uncoded 12/21/23 15:35) Itching Medication List - Last Reconciled 12/21/23 by Bailey Akers MD amlodipine 2.5 mg PO DAILY 90 days blood pressure monitor As directed blood sugar diagnostic (FreeStyle Lite Strips) use 1 strip once a day blood-glucose meter (FreeStyle Lite Meter kit) As directed dulaglutide (Trulicity) 0.75 mg (0.5 mL) subcut QWEEK 90 days hydrochlorothiazide 25 mg PO DAILY 90 days lancets (FreeStyle Lancets) Use 1 lancet once a day metformin 500 mg PO BID 90 days metoprolol tartrate 50 mg PO DAILY 90 days pantoprazole (Protonix) 40 mg PO DAILY rosuvastatin 20 mg PO BEDTIME 90 days Tobacco use date assessed: 08/10/23 Dental Screening Dental Screen Date: 08/10/23 HPI HPI Comments History of Present Illness Details This is a 53-year-old female with diabetes mellitus type 2 and morbid obesity that comes today for her physical exam. A1c elevated and I will increase metformin and start her on Ozempic. Use Trulicity with no improvement. She is morbidly obese with a BMI of 45.5 and was advised to do diet and exercise to reach BMI goal less than 30. Mammogram done 2023. Pap smear done 2023 and was normal with HPV negative. Colonoscopy done 2021 showing tubular adenoma. [facility] Medical History Tubular adenoma On beta sami at home Morbid obesity Fibromyalgia Mitral valve prolapse HTN (hypertension) Surgical History Hx of colonoscopy Hx laparoscopic cholecystectomy History of tubal ligation History of hysterectomy History of Family History Father Chronic mental illness Prostate cancer Lung cancer Alzheimers disease Mother Non-Hodgkin lymphoma Social History Household Members: Family Housing: House Alcohol intake: never Comment: pt resting comfortably Patient Tobacco Use Status: Never used Tobacco e-Cigarette/Vaping Use: Never Used Second Hand Smoke Exposure: No service: No Current occupational status: employed Current occupational exposures/hazards: No Cognitive needs: No Hearing needs: No Vision needs: Yes Female Reproductive History Menstrual Age of Menarche: 11 Questionnaire PHQ-9 Over the last 2 weeks, how often have you been bothered by any of the following problems? 1. Little interest or pleasure in doing things: not at all 2. Feeling down, depressed, or hopeless: not at all 3. Trouble falling or staying asleep, or sleeping too much: not at all 4. Feeling tired or having little energy: several days 5. Poor appetite or overeating: not at all 6. Feeling bad about yourself - or that you are a failure or have let yourself or your family down: not at all 7. Trouble concentrating on things, such as reading the newspaper or watching television: not at all 8. Moving or speaking so slowly that other people could have noticed. Or the opposite - being so fidgety or restless that you have been moving around a lot more than usual: not at all 9. Thoughts that you would be better off or of hurting yourself in some way: not at all Total score: 1 Depression Screening Interpretation: Negative Depression Screening Done: Yes 89702 - PHQ-9 Billing: Yes Source: Developed by Drs. Luis Daniel Martinez, Ewa Morales, Darnell Terrazas and colleagues, with an educational joselyn from [employer]. Thrive Questionnaire Date Thrive assessed: 08/10/23 SHELLEY-7 AMB Questionnaire SHELLEY-7 Date SHELLEY - 7 assessed: 12/21/23 Feeling nervous, anxious, or on edge: 0 = Not at all Not being able to stop or control worryin = Not at all Worrying too much about different things: 0 = Not at all Trouble relaxin = Not at all Being so restless that it is hard to sit still: 0 = Not at all Becoming easily annoyed or irritable: 0 = Not at all Feeling afraid as if something awful might happen: 0 = Not at all Total SHELLEY-7 score (0-4 normal; 5-9 mild; 10-14 moderate; 15-21 severe): 0 Source: Developed by Drs. Luis Daniel Martinez, Ewa Morales, Darnell Terrazas and colleagues, with an educational joselyn from [employer]. SHELLEY-7 Assessment Billing SHELLEY-7 Assessment Tool: SHELLEY-7 Assessment 23056 Review of Systems Const All systems reviewed & are unremarkable except as noted in HPI and below Card Denies chest pain at rest, Denies chest pain with activity, Denies edema, Denies irregular heart rhythm, Denies claudication, Denies dyspnea, Denies dyspnea on exertion, Denies orthopnea, Denies paroxysmal nocturnal dyspnea and Denies slow heart rate Resp Denies cough, Denies dyspnea and Denies dyspnea on exertion GI Denies abdominal pain, Denies change in bowel habits, Denies excessive flatus, Denies nausea and Denies vomiting Physical exam (Primary Care) Vital Signs: Last Vital Signs BP 130/82 12/21/23 15:28 BMI result Body Mass Index 45.5 BMI Assessment/Plan discussion: High BMI High, discussed plan: lifestyle, weight reduction, dietary and physical activity Tobacco/Smoking Status: Tobacco use Status Tobacco use date assessed 08/10/23 12/21/23 15:23 Patient Tobacco Use Status Never used Tobacco 12/21/23 15:23 Tobacco use type 06/02/22 17:31 e-Cigarette/Vaping Use Never Used 12/21/23 15:23 PHQ-9: PHQ-9 Score PHQ-9: Total score 1 12/21/23 17:36 Depression Screening Interpretation: Negative Thrive Assessment: Date of Thrive Assessment Date Thrive assessed 08/10/23 12/21/23 15:23 Resp Effort & Inspection: normal respiratory effort Auscultation: clear to auscultation bilaterally Cardio Jugular venous distension: no JVD Rate: regular rate Rhythm: regular rhythm Heart sounds: S1 normal heart sound present and S2 normal heart sound present Extrem General: Yes full ROM Office Procedures Flu Questionnaire Does the patient have a severe egg allergy?: No Results AMB Hemoglobin A1c AMB Hemoglobin A1c 7.7 % Last Edit by JOSE ARMANDO Sanchez on 12/21/23 15:4 4 Immunizations Fluarix Triv [id number] (PF) 45 mcg (15 mcg x 3)/0.5 mL IM syringe Performing Provider: Bailey Akers MD [facility] Documented (not given) by: JOSE ARMANDO Sanchez on 12/21/23 15:32 Reason Not Given: Patient Refused Results Reviewed Results Reviewed: Laboratory Last Values Hgb A1c (Clinic) 7.7 % (4.0-6.0) H 12/21/23 15:21 Coding Level of Care Code Est Pt Prev Care 40-64y(66147) Diagnoses Encounter for physical examination Z00.00 Type 2 diabetes mellitus with hyperglycemia, without long-term current use of insulin E11.65 Diabetes mellitus complication status: with hyperglycemia 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 (2) Diabetes mellitus: Code(s): E11.9 - Type 2 diabetes mellitus without complications Category: Medical Qualifiers: Diabetes mellitus complication status: with hyperglycemia Diabetes mellitus termite treater insulin use: without termite treater use Diabetes mellitus type: type 2 Qualified Code(s): E11.65 - Type 2 diabetes mellitus with hyperglycemia Plan: Increase metformin. Discontinue Trulicity. Start Ozempic. A1c goal is equal or less than 7 %. (3) Morbid obesity: Code(s): E66.01 - Morbid (severe) obesity due to excess calories Category: Medical Plan: Start diet and exercise. BMI goal is less than 30. Orders: Orders Influenza [id number] Immunization Today Z23 - Encounter for immunization AMB Hemoglobin A1c Today Z13.9 - Encounter for screening, unspecified Lipid Panel Today E78.5 - Hyperlipidemia, unspecified Microalbumin, Random (w Creat) Today R80.9 - Proteinuria, unspecified Comprehensive [place]. Panel Fast Today I10 - Essential (primary) hypertension Medications: New semaglutide (Ozempic) for 4 weeks 0.25 mg (0.368 mL) subcut QWEEK 1.472 mL 0RF 4 weeks E11.65 - Type 2 diabetes mellitus with hyperglycemia metformin 850 mg PO BID 180 tabs 1RF 90 days Discontinued metformin Discontinued Reason: Patient Completed Course 500 mg PO BID 90 days 180 tabs 1RF E11.9 - Type 2 diabetes mellitus without complications dulaglutide (Trulicity) Discontinued Reason: Patient Completed Course 0.75 mg (0.5 mL) subcut QWEEK 90 days 6.5 mL 0RF E11.9 - Type 2 diabetes mellitus without complications
[2023-12-21 15:28] VITALS: BP 130/82; BMI 45.5
== END 2023-12-21 15:47 | disposition home or self-care (01) ==
LOC: HO.HMCH 15:20
PROVIDERS: PCP Internal Medicine; Visit Provider Internal Medicine
DX: Z00.00 Encounter for general adult medical examination without abnormal findings (principal); E11.65 Type 2 diabetes mellitus with hyperglycemia; E66.01 Morbid (severe) obesity due to excess calories; Z68.41 Body mass index [BMI] 40.0-44.9, adult; Z23 Encounter for immunization

== ENCOUNTER → 2023-12-21 15:19 | Outpatient (BNVA) | payer OTHER, SELFPAY | PROVIDERS: PCP Internal Medicine; Visit Provider Internal Medicine | DX: Z00.00 Encounter for general adult medical examination without abnormal findings (principal); E11.65 Type 2 diabetes mellitus with hyperglycemia; E66.01 Morbid (severe) obesity due to excess calories; Z68.42 Body mass index [BMI] 45.0-49.9, adult; Z71.3 Dietary counseling and surveillance | CPT/HCPCS: 83036; 96127; 99396 ==

== ENCOUNTER 2024-06-24 08:26 | Outpatient (REF) | payer OTHER, SELFPAY ==
[2024-06-24 10:07] LABS: Alanine Aminotransferase 34 U/L (0-31); Albumin Level 4.1 g/dL (3.5-5.0); Alkaline Phosphatase 122 U/L (39-117); Anion Gap 14 (12-20); Aspartate Amino Transferase 21 U/L (5-31); Bilirubin Total 1.1 mg/dL (0.0-1.0); Blood Urea Nitrogen 16 mg/dL (9-16); Calcium 9.6 mg/dL (8.4-10.2); Carbon Dioxide 31 mmol/L (22-29); Chloride 98 mmol/L (96-108); Cholesterol 187 mg/dL (<200); Estimated Glomerular Filt Rate > 60; HDL Cholesterol 39 mg/dL (>40); LDL Cholesterol Calculated 122 mg/dL (<100); Potassium 4.2 mmol/L (3.3-5.1); Sodium 139 mmol/L (135-145); Total Protein 7.5 g/dL (6.5-8.0); Triglycerides 132 mg/dL (<150)
[2024-06-24 10:17] LABS: Vitamin D 25-OH Total 22.9 ng/mL (>30)
[2024-06-24 10:22] LABS: Creatinine Urine 152.36 mg/dL; Microalbum/Creatinine Ratio Ur 108.2 ug/mg cr (<30)
[2024-06-24 12:22] LABS: Glucose Fasting 389 mg/dL (60-99)
== END 2024-06-24 08:27 | disposition home or self-care (01) ==
LOC: HO.LAB 08:26
PROVIDERS: PCP Internal Medicine; Visit Provider Internal Medicine
DX: E78.5 Hyperlipidemia, unspecified (principal); E11.9 Type 2 diabetes mellitus without complications; E55.9 Vitamin D deficiency, unspecified
CPT/HCPCS: 36415; 80053; 80061; 82043; 82306; 82570

== ENCOUNTER 2024-06-26 11:28 | Emergency (ER) | payer OTHER, SELFPAY ==
[2024-06-26 11:33] VITALS: BP 143/85; PULSE 81; RESP 18; TEMP 36.9; O2SAT 97; BMI 40.2
--- NOTE | 2024-06-26 11:39 | ED.GENADULT ---
HPI - General Adult General Chief complaint: General Medical Stated complaint: High blood sugar Time Seen by Provider: 06/26/24 13:03 Related Data Previous Rx's ?Medication ?Instructions ?Recorded blood pressure monitor #1 ea 05/26/21 blood sugar diagnostic (FreeStyle #100 ea 09/25/21 Lite Strips) blood-glucose meter (FreeStyle #1 ea 09/25/21 Lite Meter kit) lancets 28 gauge (FreeStyle #100 ea 09/25/21 Lancets) rosuvastatin 20 mg tablet 20 mg PO BEDTIME 90 days #90 tabs 03/05/23 pantoprazole 40 mg tablet,delayed 40 mg PO DAILY #20 tabs 04/06/23 release (Protonix) amlodipine 2.5 mg tablet 2.5 mg PO DAILY 90 days #90 tabs 12/19/23 hydrochlorothiazide 25 mg tablet 25 mg PO DAILY 90 days #90 tabs 12/19/23 metoprolol tartrate 50 mg tablet 50 mg PO DAILY 90 days #90 tabs 12/19/23 metformin 850 mg tablet 850 mg PO BID 90 days #180 tabs 12/21/23 semaglutide 0.25 mg or 0.5 mg (2 0.25 mg (0.368 mL) subcut QWEEK 4 12/21/23 mg/3 mL) subcutaneous pen injector weeks #1.472 mL (Ozempic) Allergies Allergy/AdvReac Type Severity Reaction Status Date / Time sumatriptan Allergy Mild Itching Verified 06/26/24 11:37 Penicillins [PCN] Allergy Unknown hives & Verified 06/26/24 11:37 rash seafood Allergy Mild Itching Uncoded 12/21/23 15:35 PMFSH Past Medical History Medical History Tubular adenoma On beta sami at home Morbid obesity Fibromyalgia Mitral valve prolapse HTN (hypertension) Surgical History Hx of colonoscopy Hx laparoscopic cholecystectomy History of tubal ligation History of hysterectomy History of Family History Family History Father Chronic mental illness Prostate cancer Lung cancer Alzheimers disease Mother Non-Hodgkin lymphoma Social History Social History Household Members: Family Housing: House Alcohol intake: never Comment: pt resting comfortably Patient Tobacco Use Status: Never used Tobacco e-Cigarette/Vaping Use: Never Used Second Hand Smoke Exposure: No Advance Directives: No Advance Directives Information Provided: Yes Do you have a plan to hurt others: No Plan service: No Current occupational status: employed Current occupational exposures/hazards: No Cognitive needs: No Hearing needs: No Vision needs: Yes Physical Exam ED Vital Signs: Vital Signs - 24 hr 06/26/24 11:33 Temperature 98.5 F Pulse Rate 81 Respiratory Rate 18 Blood Pressure 143/85 H Pulse Oximetry 97 Oxygen Delivery Method Room Air BMI result Body Mass Index 40.2 Course Course Course Narrative: RME, this is a rapid medical exam performed by Marc Wang please refer to primary provider for complete H&P- 53-year-old female presents for evaluation of elevated blood sugar. She was here 2 days ago was told her sugar was over 400. She was instructed to follow up with the PCP but was told that she can not get an appointment until next week. She takes metformin but is not on insulin. Plan for labs Medications Administered Discontinued Medications Generic Name Dose Route Start Last Admin Trade Name Freq PRN Reason Stop Dose Admin Sodium Chloride 1,000 mls @ 999 mls/hr 06/26/24 14:00 06/26/24 13:59 Ns IV 06/26/24 15:00 999 mls/hr .Q1H1M HEATHER Administration Sodium Chloride 1,000 mls @ 999 mls/hr 06/26/24 14:00 06/26/24 14:01 Ns IV 06/26/24 15:00 999 mls/hr .Q1H1M HEATHER Administration Medical Decision Making Lab Data 06/26/24 12:42 06/26/24 12:42 Labs: Lab Results 06/26/24 06/26/24 06/26/24 Range/Units 12:42 12:47 15:25 WBC 6.4 (4.8-10.8) X10*3/uL RBC 5.05 (4.20-5.50) X10*6/uL Hgb 14.5 (12.0-16.0) g/dl Hct 42.8 (37.0-47.0) % MCV 84.8 (80.0-98.0) fL MCH 28.7 (27.0-33.0) pg MCHC 33.9 (31.0-35.0) g/dl RDW 12.7 (11.0-16.0) % Plt Count 242 (160-400) X10*3/uL MPV 10.3 (9.4-12.3) fL Immature Gran % (Auto) 0.5 H (0.0-0.4) % Neut % (Auto) 67.4 (45-73) % Lymph % (Auto) 23.0 (20-40) % [place] % (Auto) 8.5 (2-11) % Eos % (Auto) 0.3 (0-4) % Baso % (Auto) 0.3 (0-2) % Lymph # (Auto) 1.5 (1.2-4.9) X10*3/uL [place] # (Auto) 0.5 (0.1-1.2) X10*3/uL Eos # (Auto) 0.0 (0.0-0.4) X10*3/uL Baso # (Auto) 0.0 (0.0-0.2) X10*3/uL Abs Immat Gran (auto) 0.03 (0.00-0.03) X10*3/uL Absolute Neuts (auto) 4.3 (2.0-8.3) x10*3/uL Absolute Nucleated RBC 0.000 (0.0-0.012) X10*3/uL Nucleated RBC % (auto) 0.0 (0.0-0.2) /100WBC VBG pH 7.44 H (7.32-7.43) VBG pCO2 47 mmHg VBG pO2 30 mmHg VBG HCO3 32 H (22-26) mmol/L VBG O2 Saturation 44.0 % VBG Base Excess 7.0 mmol/L Sodium 133 L (135-145) mmol/L Potassium 4.5 (3.3-5.1) mmol/L Chloride 98 (96-108) mmol/L Carbon Dioxide 26 (22-29) mmol/L Anion Gap 14 (12-20) BUN 13 (9-16) mg/dL Creatinine 0.78 (0.5-1.4) mg/dL Estim Creat Clear Calc 105.1 Estimated GFR > 60 POC Glucose 298 H (60-115) mg/dL Random Glucose 376 H* (60-115) mg/dL Calcium 9.0 D (8.4-10.2) mg/dL Total Bilirubin 0.9 (0.0-1.0) mg/dL AST 38 H (5-31) U/L ALT 50 H (0-31) U/L Alkaline Phosphatase 110 (39-117) U/L Total Protein 6.8 (6.5-8.0) g/dL Albumin 3.7 (3.5-5.0) g/dL Lipase 10 (8-78) U/L Beta-Hydroxybutyrate 0.21 (0.02-0.27) mmol/L Discharge Plan Discharge Clinical Impression: Acute hyperglycemia Diabetes mellitus Qualifiers: Diabetes mellitus type: type 2 Diabetes mellitus terminal carman insulin use: without long-term use Diabetes mellitus complication status: with hyperglycemia Qualified Code(s): E11.65 - Type 2 diabetes mellitus with hyperglycemia Patient Disposition: Home, Self-Care Instructions: Diabetic Hyperglycemia (ED), Diabetes and Nutrition (ED) Prescriptions: No Action rosuvastatin 20 mg tablet 20 mg PO BEDTIME 90 Days Qty: 90 1RF metoprolol tartrate 50 mg tablet 50 mg PO DAILY 90 Days Qty: 90 3RF hydrochlorothiazide 25 mg tablet 25 mg PO DAILY 90 Days Qty: 90 3RF amlodipine 2.5 mg tablet 2.5 mg PO DAILY 90 Days Qty: 90 3RF pantoprazole [Protonix] 40 mg tablet,delayed release (DR/EC) 40 mg PO DAILY Qty: 20 0RF (DME) blood pressure monitor Kit See Rx Instructions .Route Qty: 1 0RF Rx Instructions: As directed (DME) blood-glucose meter [FreeStyle Lite Meter] Kit See Rx Instructions .Route Qty: 1 0RF Rx Instructions: As directed (DME) FreeStyle Lite Strips Strip See Rx Instructions .Route Qty: 100 2RF Rx Instructions: use 1 strip once a day (DME) lancets [FreeStyle Lancets] 28 gauge misc See Rx Instructions .Route Qty: 100 2RF Rx Instructions: Use 1 lancet once a day Ozempic 0.25 mg or 0.5 mg (2 mg/3 mL) pen injector 0.25 mg subcut QWEEK 28 Days Qty: 1.472 0RF Rx Instructions: for 4 weeks metformin 850 mg tablet 850 mg PO BID 90 Days Qty: 180 1RF Stand Alone Forms: Work/School Release Interventions: ED Discharge Assessment Last Done: 06/26/24 15:53 Discharge Date/Time: 06/26/24 15:54 Print Language: Slovenian
[2024-06-26 12:47] LABS: MANUAL DIFF FLAG NO
[2024-06-26 12:48] LABS: Basophils Percent Auto 0.3 % (0-2); Eosinophils Percent Auto 0.3 % (0-4); Hematocrit 42.8 % (37.0-47.0); Hemoglobin 14.5 g/dl (12.0-16.0); Imm Gran Abs Auto 0.03 X10*3/uL (0.00-0.03); Imm Gran Pct Auto 0.5 % (0.0-0.4); Lymphocytes Absolute Auto 1.5 X10*3/uL (1.2-4.9); Mean Corpuscular HGB Conc 33.9 g/dl (31.0-35.0); Mean Corpuscular Hemoglobin 28.7 pg (27.0-33.0); Mean Corpuscular Volume 84.8 fL (80.0-98.0); Mean Platelet Volume 10.3 fL (9.4-12.3); Monocytes Absolute Auto 0.5 X10*3/uL (0.1-1.2); Monocytes Percent Auto 8.5 % (2-11); Neutrophils Absolute Auto 4.3 x10*3/uL (2.0-8.3); Neutrophils Percent Auto 67.4 % (45-73); Platelet Count 242 X10*3/uL (160-400); Red Blood Count 5.05 X10*6/uL (4.20-5.50); Red Cell Distribution Width 12.7 % (11.0-16.0); White Blood Count 6.4 X10*3/uL (4.8-10.8)
[2024-06-26 12:52] LABS: VBG HCO3 32 mmol/L (22-26); VBG pCO2 47 mmHg; VBG pH 7.44 (7.32-7.43); VBG pO2 30 mmHg
[2024-06-26 12:53] LABS: Venous Blood Gas Refer to POC result
[2024-06-26 13:16] LABS: Alanine Aminotransferase 50 U/L (0-31); Albumin Level 3.7 g/dL (3.5-5.0); Anion Gap 14 (12-20); Aspartate Amino Transferase 38 U/L (5-31); Beta-Hydroxybutyrate 0.21 mmol/L (0.02-0.27); Bilirubin Total 0.9 mg/dL (0.0-1.0); Blood Urea Nitrogen 13 mg/dL (9-16); Carbon Dioxide 26 mmol/L (22-29); Chloride 98 mmol/L (96-108); Creatinine Clr Calc Pharmacy 105.1; Estimated Glomerular Filt Rate > 60; Glucose Random 376 mg/dL (60-115); Lipase 10 U/L (8-78); Potassium 4.5 mmol/L (3.3-5.1); Sodium 133 mmol/L (135-145); Total Protein 6.8 g/dL (6.5-8.0)
--- NOTE | 2024-06-26 13:54 | ED.GENADULT ---
HPI - General Adult General Chief complaint: General Medical Stated complaint: High blood sugar Time Seen by Provider: 06/26/24 13:03 History of Present Illness HPI narrative: Patient is a 53-year-old female presented today with having elevated sugar. Patient denies any chest pain or shortness breath no dizziness no nausea no vomiting. Has been drinking juices. Did not drink any soda did not eat any simple sugar has been on metformin 875 twice a day for the last month. There has been no other changes in medication patient claims compliance with medications. No abdominal pain or nausea no vomiting. No focal weakness. No chest pain. No shortness of breath. Related Data Previous Rx's ?Medication ?Instructions ?Recorded blood pressure monitor #1 ea 05/26/21 blood sugar diagnostic (FreeStyle #100 ea 09/25/21 Lite Strips) blood-glucose meter (FreeStyle #1 ea 09/25/21 Lite Meter kit) lancets 28 gauge (FreeStyle #100 ea 09/25/21 Lancets) rosuvastatin 20 mg tablet 20 mg PO BEDTIME 90 days #90 tabs 03/05/23 pantoprazole 40 mg tablet,delayed 40 mg PO DAILY #20 tabs 04/06/23 release (Protonix) amlodipine 2.5 mg tablet 2.5 mg PO DAILY 90 days #90 tabs 12/19/23 hydrochlorothiazide 25 mg tablet 25 mg PO DAILY 90 days #90 tabs 12/19/23 metoprolol tartrate 50 mg tablet 50 mg PO DAILY 90 days #90 tabs 12/19/23 metformin 850 mg tablet 850 mg PO BID 90 days #180 tabs 12/21/23 semaglutide 0.25 mg or 0.5 mg (2 0.25 mg (0.368 mL) subcut QWEEK 4 12/21/23 mg/3 mL) subcutaneous pen injector weeks #1.472 mL (Ozempic) Allergies Allergy/AdvReac Type Severity Reaction Status Date / Time sumatriptan Allergy Mild Itching Verified 06/26/24 11:37 Penicillins [PCN] Allergy Unknown hives & Verified 06/26/24 11:37 rash seafood Allergy Mild Itching Uncoded 12/21/23 15:35 Review of Systems Review of Systems: Positive elevated sugar Yes all other systems are reviewed and are negative [facility] Past Medical History Attestation statement: The following information was validated with the patient. Medical History Tubular adenoma On beta sami at home Morbid obesity Fibromyalgia Mitral valve prolapse HTN (hypertension) Surgical History Hx of colonoscopy Hx laparoscopic cholecystectomy History of tubal ligation History of hysterectomy History of Family History Family History Father Chronic mental illness Prostate cancer Lung cancer Alzheimers disease Mother Non-Hodgkin lymphoma Social History Social History Household Members: Family Housing: House Alcohol intake: never Comment: pt resting comfortably Patient Tobacco Use Status: Never used Tobacco e-Cigarette/Vaping Use: Never Used Second Hand Smoke Exposure: No Advance Directives: No Advance Directives Information Provided: Yes Do you have a plan to hurt others: No Plan service: No Current occupational status: employed Current occupational exposures/hazards: No Cognitive needs: No Hearing needs: No Vision needs: Yes Physical Exam ED Vital Signs: Vital Signs - 24 hr 06/26/24 11:33 Temperature 98.5 F Pulse Rate 81 Respiratory Rate 18 Blood Pressure 143/85 H Pulse Oximetry 97 Oxygen Delivery Method Room Air BMI result Body Mass Index 40.2 Appearance: Alert. Oriented X3. No acute distress. Eyes: Pupils equal, round and reactive to light. ENT: Pharynx normal. Neck: Normal inspection. Neck supple. No lymph nodes noted. No crepitus CVS: Normal heart rate and rhythm. Pulses normal. Normal S1 and S2 Respiratory: No respiratory distress. Breath sounds normal. No Wheezing. No rales Abdomen: Soft and nontender. No rigidity. No distention. good BS x4 Skin: Skin warm and dry. Normal skin color. Normal skin turgor. Extremities: No lower extremity edema. Neurovascular intact to all extremities. No Lacerations. No Rash Neuro: Oriented X 3. No motor deficit. No sensory deficit. Moving all extermities. No slurred speech Medications Administered Discontinued Medications Generic Name Dose Route Start Last Admin Trade Name Freq PRN Reason Stop Dose Admin Sodium Chloride 1,000 mls @ 999 mls/hr 06/26/24 14:00 06/26/24 13:59 Ns IV 06/26/24 15:00 999 mls/hr .Q1H1M HEATHER Administration Sodium Chloride 1,000 mls @ 999 mls/hr 06/26/24 14:00 06/26/24 14:01 Ns IV 06/26/24 15:00 999 mls/hr .Q1H1M HEATHER Administration Medical Decision Making Medical Decision Making MDM Narrative: Well-appearing no acute distress. Discussed patient's case through an interior plant caretaker. Patient's sugar is elevated it is approximately 370 today. Luckily the anion gap is normal. Bicarb is normal the beta hydroxybutyrate is normal there is no evidence for diabetic ketoacidosis patient has no symptoms suggestive of DKA. Will give IV fluids. Will monitor patient's sugar carefully. Explained to patient the need to follow a strict diabetic diet. Close follow-up with patient's primary physician patient already has an appointment in 2 days. Currently in stable condition. After 2 L of fluid patient's sugar down to below 300 at 298. Will discharge patient home patient's labs showed no evidence of diabetic ketoacidosis. She is well-appearing will follow a strict diabetic diet. Close follow-up outpatient with her primary physician Differential Diagnosis Differential Diagnoses: The differential diagnosis associated with the presentation includes Lab Data 06/26/24 12:42 06/26/24 12:42 Labs: Lab Results 06/26/24 06/26/24 Range/Units 12:42 12:47 WBC 6.4 (4.8-10.8) X10*3/uL RBC 5.05 (4.20-5.50) X10*6/uL Hgb 14.5 (12.0-16.0) g/dl Hct 42.8 (37.0-47.0) % MCV 84.8 (80.0-98.0) fL MCH 28.7 (27.0-33.0) pg MCHC 33.9 (31.0-35.0) g/dl RDW 12.7 (11.0-16.0) % Plt Count 242 (160-400) X10*3/uL MPV 10.3 (9.4-12.3) fL Immature Gran % (Auto) 0.5 H (0.0-0.4) % Neut % (Auto) 67.4 (45-73) % Lymph % (Auto) 23.0 (20-40) % [place] % (Auto) 8.5 (2-11) % Eos % (Auto) 0.3 (0-4) % Baso % (Auto) 0.3 (0-2) % Lymph # (Auto) 1.5 (1.2-4.9) X10*3/uL [place] # (Auto) 0.5 (0.1-1.2) X10*3/uL Eos # (Auto) 0.0 (0.0-0.4) X10*3/uL Baso # (Auto) 0.0 (0.0-0.2) X10*3/uL Abs Immat Gran (auto) 0.03 (0.00-0.03) X10*3/uL Absolute Neuts (auto) 4.3 (2.0-8.3) x10*3/uL Absolute Nucleated RBC 0.000 (0.0-0.012) X10*3/uL Nucleated RBC % (auto) 0.0 (0.0-0.2) /100WBC VBG pH 7.44 H (7.32-7.43) VBG pCO2 47 mmHg VBG pO2 30 mmHg VBG HCO3 32 H (22-26) mmol/L VBG O2 Saturation 44.0 % VBG Base Excess 7.0 mmol/L Sodium 133 L (135-145) mmol/L Potassium 4.5 (3.3-5.1) mmol/L Chloride 98 (96-108) mmol/L Carbon Dioxide 26 (22-29) mmol/L Anion Gap 14 (12-20) BUN 13 (9-16) mg/dL Creatinine 0.78 (0.5-1.4) mg/dL Estim Creat Clear Calc 105.1 Estimated GFR > 60 Random Glucose 376 H* (60-115) mg/dL Calcium 9.0 D (8.4-10.2) mg/dL Total Bilirubin 0.9 (0.0-1.0) mg/dL AST 38 H (5-31) U/L ALT 50 H (0-31) U/L Alkaline Phosphatase 110 (39-117) U/L Total Protein 6.8 (6.5-8.0) g/dL Albumin 3.7 (3.5-5.0) g/dL Lipase 10 (8-78) U/L Beta-Hydroxybutyrate 0.21 (0.02-0.27) mmol/L Discharge Plan Discharge Clinical Impression: Diabetes mellitus, Acute hyperglycemia Prescriptions: No Action rosuvastatin 20 mg tablet 20 mg PO BEDTIME 90 Days Qty: 90 1RF metoprolol tartrate 50 mg tablet 50 mg PO DAILY 90 Days Qty: 90 3RF hydrochlorothiazide 25 mg tablet 25 mg PO DAILY 90 Days Qty: 90 3RF amlodipine 2.5 mg tablet 2.5 mg PO DAILY 90 Days Qty: 90 3RF pantoprazole [Protonix] 40 mg tablet,delayed release (DR/EC) 40 mg PO DAILY Qty: 20 0RF (DME) blood pressure monitor Kit See Rx Instructions .Route Qty: 1 0RF Rx Instructions: As directed (DME) blood-glucose meter [FreeStyle Lite Meter] Kit See Rx Instructions .Route Qty: 1 0RF Rx Instructions: As directed (DME) FreeStyle Lite Strips Strip See Rx Instructions .Route Qty: 100 2RF Rx Instructions: use 1 strip once a day (DME) lancets [FreeStyle Lancets] 28 gauge misc See Rx Instructions .Route Qty: 100 2RF Rx Instructions: Use 1 lancet once a day Ozempic 0.25 mg or 0.5 mg (2 mg/3 mL) pen injector 0.25 mg subcut QWEEK 28 Days Qty: 1.472 0RF Rx Instructions: for 4 weeks metformin 850 mg tablet 850 mg PO BID 90 Days Qty: 180 1RF Print Language: Bangladeshi
[2024-06-26] MEDS: 0.9 % Sodium Chloride 1,000 ML 999 ML IV ×2 (13:59→14:01)
[2024-06-26 14:25] LABS: Alkaline Phosphatase 110 U/L (39-117)
[2024-06-26 15:30] LABS: Glucose, Whole Blood 298 mg/dL (60-115)
[2024-06-26 15:53] VITALS: BP 143/85; PULSE 81; RESP 18; TEMP 36.9; O2SAT 97
== END 2024-06-26 15:54 | disposition home or self-care (01) ==
PROVIDERS: Physician Assistant; Emergency Provider Emergency Medicine Emergency Medical Services; PCP Internal Medicine
DX: E11.65 Type 2 diabetes mellitus with hyperglycemia (principal); I10 Essential (primary) hypertension; E78.5 Hyperlipidemia, unspecified; Z90.49 Acquired absence of other specified parts of digestive tract; Z79.84 Long term (current) use of oral hypoglycemic drugs; Z79.899 Other long term (current) drug therapy
CPT/HCPCS: 36415; 80053; 82010; 82803; 82947; 83690; 85025; 99283

== ENCOUNTER 2024-06-29 | Outpatient (REF) | payer OTHER, SELFPAY | END 2024-06-29 00:01 | disposition home or self-care (01) | LOC: CF | PROVIDERS: PCP Internal Medicine; Visit Provider Internal Medicine | DX: E11.65 Type 2 diabetes mellitus with hyperglycemia (principal); R80.9 Proteinuria, unspecified; I10 Essential (primary) hypertension; E78.5 Hyperlipidemia, unspecified; E66.01 Morbid (severe) obesity due to excess calories; Z68.41 Body mass index [BMI] 40.0-44.9, adult; E55.9 Vitamin D deficiency, unspecified; Z79.84 Long term (current) use of oral hypoglycemic drugs | CPT/HCPCS: 83036; 96127; 99212 ==

== ENCOUNTER 2024-06-29 15:55 | Outpatient (AMB) | payer OTHER, SELFPAY ==
[2024-06-29 15:59] VITALS: BP 130/82; BMI 40.3
--- NOTE | 2024-06-29 15:59 | MHC.PC.OV ---
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 Accompanied by: Self / Same As Patient Allergies sumatriptan Allergy (Mild, Verified 06/29/24 16:09) Itching Penicillins [PCN] Allergy (Unknown, Verified 06/29/24 16:09) hives & rash seafood Allergy (Mild, Uncoded 06/29/24 16:09) Itching Medication List - Last Reconciled 06/29/24 by Bailey Akers MD amlodipine 2.5 mg PO DAILY 90 days blood pressure monitor As directed blood sugar diagnostic (FreeStyle Lite Strips) use 1 strip once a day blood-glucose meter (FreeStyle Lite Meter kit) As directed hydrochlorothiazide 25 mg PO DAILY 90 days lancets (FreeStyle Lancets) Use 1 lancet once a day metformin 850 mg PO BID 90 days metoprolol tartrate 50 mg PO DAILY 90 days pantoprazole (Protonix) 40 mg PO DAILY rosuvastatin 20 mg PO BEDTIME 90 days semaglutide (Ozempic) 0.25 mg (0.368 mL) subcut QWEEK 4 weeks Tobacco use date assessed: 06/29/24 Dental Screening Dental Screen Date: 06/29/24 Did you have a dental visit in the last 12 months?: No Did you have a dental problem in the last 6 months where you did not have access to dental care?: No Was dental information given to patient?: Patient has dentist HPI HPI Comments History of Present Illness Details The patient is a 53-year-old female presenting with type 2 diabetes mellitus. Her hemoglobin A1c is significantly elevated at 11.9%, with marked hyperglycemia reported as being in the 300s. The patient has been on metformin but at the higher dose of 850 mg twice daily, it causes considerable discomfort, thus impacting her adherence. She also faces challenges with insurance approving alternative diabetic medications like Ozempic without stacker operator involvement. There is a history of proteinuria along with poorly controlled hypertension, currently managed with amlodipine and previously hydrochlorothiazide, which is set to be replaced by lisinopril owing to its renal protection benefits. Hyperlipidemia management has been suboptimal, given the difficulties in obtaining refills for rosuvastatin. The patient also has a background of morbid obesity with a BMI of 40, contributing to her diabetes and is currently attempting lifestyle changes for weight management. [facility] Medical History (Updated 06/29/24 @ 16:25 by Bailey Akers MD) Tubular adenoma On beta sami at home Morbid obesity Fibromyalgia Mitral valve prolapse HTN (hypertension) Surgical History Hx of colonoscopy Hx laparoscopic cholecystectomy History of tubal ligation History of hysterectomy History of Family History Father Chronic mental illness Prostate cancer Lung cancer Alzheimers disease Mother Non-Hodgkin lymphoma Social History Household Members: Family Housing: House Alcohol intake: never Comment: pt resting comfortably Patient Tobacco Use Status: Never used Tobacco e-Cigarette/Vaping Use: Never Used Second Hand Smoke Exposure: No service: No Current occupational status: employed Current occupational exposures/hazards: No Cognitive needs: No Hearing needs: No Vision needs: Yes Female Reproductive History Menstrual Age of Menarche: 11 Questionnaire PHQ-9 Over the last 2 weeks, how often have you been bothered by any of the following problems? 1. Little interest or pleasure in doing things: not at all 2. Feeling down, depressed, or hopeless: not at all 3. Trouble falling or staying asleep, or sleeping too much: not at all 4. Feeling tired or having little energy: not at all 5. Poor appetite or overeating: not at all 6. Feeling bad about yourself - or that you are a failure or have let yourself or your family down: not at all 7. Trouble concentrating on things, such as reading the newspaper or watching television: not at all 8. Moving or speaking so slowly that other people could have noticed. Or the opposite - being so fidgety or restless that you have been moving around a lot more than usual: not at all 9. Thoughts that you would be better off or of hurting yourself in some way: not at all Total score: 0 Depression Screening Interpretation: Negative Depression Screening Done: Yes 99305 - PHQ-9 Billing: Yes Source: Developed by Drs. Luis Daniel Martinez, Ewa Morales, Darnell Terrazas and colleagues, with an educational joselyn from [employer]. Thrive Questionnaire Date Thrive assessed: 06/29/24 I am a: Patient What is your living situation today?: I have a steady place to live Within the past 12 months, did the food you bought not last and you didn't have the money to get more?: Never true Within the past 12 months, did you worry whether your food would run out before you got money to buy more?: Never true Do you have trouble paying for medicines?: No Do you have trouble getting transportation to medical appointments?: No Do you have trouble paying your heating and electricity bill?: No Do you have trouble taking care of your child, family member or friend?: No Do you have trouble with day-to-day activities such as bathing, preparing meals, shopping, managing finances, etc.?: No Are you currently unemployed and looking for a job?: No Are you interested in more education?: No Please select the resources that you would like help with: None Currently or been in a relationship where the following occur: No concerns reported THRIVE Score: 0 AUDIT C Alcohol Use Questionnaire (AUDIT-C) 1. How often do you have a drink containing alcohol?: Never Total Score: 0 Score Reviewed/Action Taken: No SHELLEY-7 AMB Questionnaire SHELLEY-7 Date SHELLEY - 7 assessed: 06/29/24 Feeling nervous, anxious, or on edge: 0 = Not at all Not being able to stop or control worryin = Not at all Worrying too much about different things: 0 = Not at all Trouble relaxin = Not at all Being so restless that it is hard to sit still: 0 = Not at all Becoming easily annoyed or irritable: 0 = Not at all Feeling afraid as if something awful might happen: 0 = Not at all Total SHELLEY-7 score (0-4 normal; 5-9 mild; 10-14 moderate; 15-21 severe): 0 Source: Developed by Drs. Luis Daniel Martinez, Darnell Dang and colleagues, with an educational joselyn from [employer]. SHELLEY-7 Assessment Billing SHELLEY-7 Assessment Tool: SHELLEY-7 Assessment 01432 Review of Systems Const All systems reviewed & are unremarkable except as noted in HPI and below Card Denies chest pain at rest, Denies chest pain with activity, Denies edema, Denies irregular heart rhythm, Denies claudication, Denies dyspnea, Denies dyspnea on exertion, Denies orthopnea, Denies paroxysmal nocturnal dyspnea and Denies slow heart rate Resp Denies cough, Denies dyspnea and Denies dyspnea on exertion GI Denies abdominal pain, Denies change in bowel habits, Denies excessive flatus, Denies nausea and Denies vomiting Denies urinary incontinence, Denies urinary hesitancy and Denies urinary urgency Musc Denies atrophy, Denies deformity and Denies limited range of motion Physical exam (Primary Care) Vital Signs: Last Vital Signs BP 130/82 06/29/24 15:59 BMI result Body Mass Index 40.3 BMI Assessment/Plan discussion: High BMI High, discussed plan: lifestyle, weight reduction, dietary and physical activity Tobacco/Smoking Status: Tobacco use Status Tobacco use date assessed 06/29/24 06/29/24 16:07 Patient Tobacco Use Status Never used Tobacco 06/29/24 15:59 Tobacco use type 06/02/22 17:31 e-Cigarette/Vaping Use Never Used 06/29/24 15:59 PHQ-9: PHQ-9 Score PHQ-9: Total score 0 06/29/24 16:07 Depression Screening Interpretation: Negative Thrive Assessment: Date of Thrive Assessment Date Thrive assessed 06/29/24 06/29/24 15:59 Currently or been in a relationship where the following occur: No concerns reported Resp Effort & Inspection: normal respiratory effort Auscultation: clear to auscultation bilaterally Cardio Jugular venous distension: no JVD Rate: regular rate Rhythm: regular rhythm Heart sounds: S1 normal heart sound present and S2 normal heart sound present Extrem General: Yes full ROM Results AMB Hemoglobin A1c AMB Hemoglobin A1c 11.3 % Last Edit by JOSE ARMANDO Sanchez on 06/29/24 16:10 Coding Level of Care Code Est Pt Level 4 (83359) Complex EM visit Add On G2211 Diagnoses Microalbuminuria R80.9 HTN (hypertension) I10 Hyperlipidemia LDL goal <70 E78.5 Type 2 diabetes mellitus with hyperglycemia, without long-term current use of insulin E11.65 Diabetes mellitus type: type 2 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: without dedicated intermodal truck driver use Diabetes mellitus complication status: with hyperglycemia Morbid obesity E66.01 Hypovitaminosis D E55.9 Additional Codes PHQ-9 - 97980 - PHQ-9 Billing: Yes ([id number]) SHELLEY-7 Assessment Billing - SHELLEY-7 Assessment Tool: SHELLEY-7 Assessment 42280 ([id number]) Time Spent (min) 24 Assessment & Plan Assessment & Plan (1) Microalbuminuria: Code(s): R80.9 - Proteinuria, unspecified Category: Medical (2) HTN (hypertension): Code(s): I10 - Essential (primary) hypertension Category: Medical (3) Hyperlipidemia LDL goal <70: Code(s): E78.5 - Hyperlipidemia, unspecified Category: Medical (4) Diabetes mellitus: Code(s): E11.9 - Type 2 diabetes mellitus without complications Category: Medical Qualifiers: Diabetes mellitus type: type 2 Diabetes mellitus nursing home insulin use: without nursing home use Diabetes mellitus complication status: with hyperglycemia Qualified Code(s): E11.65 - Type 2 diabetes mellitus with hyperglycemia (5) Morbid obesity: Code(s): E66.01 - Morbid (severe) obesity due to excess calories Category: Medical (6) Hypovitaminosis D: Code(s): E55.9 - Vitamin D deficiency, unspecified Category: Medical Plan The adjustment of metformin to 500 mg twice daily aims to reduce gastrointestinal discomfort and enhance compliance. Adoption of Trulicity is proposed to manage diabetes and assist in weight loss, contingent upon approval. Management of proteinuria and hypertension will be addressed with a switch from hydrochlorothiazide to lisinopril. Priorities also include resolving access to rosuvastatin to help manage hyperlipidemia. Lifestyle interventions are emphasized for weight management and improved glycemic control. Collaborations with specialists, including endocrinology and nephrology, are necessary for comprehensive evaluation and medication approval facilitation. Follow-up involves regular monitoring of glucose, blood pressure, and lipid profiles. Patient was informed and verbally consented to the use of an ambient scribe for clinic note documentation during this visit. I explained the significance of the elevated hemoglobin A1c and the need for tighter diabetes control. The patient was counseled regarding the modification of metformin dosage to address gastrointestinal side effects and the potential initiation of Trulicity to aid in diabetes management and promote weight loss. The role of lisinopril in addressing both hypertension and proteinuria was highlighted, and I discussed transitioning from hydrochlorothiazide. The importance of resuming rosuvastatin for hyperlipidemia was reinforced, alongside lifestyle modifications for weight reduction. I also detailed the plan for specialist referrals to support medication procurement and renal assessments. Consent was obtained for the discussed therapeutic changes and monitoring plans. Orders: Orders AMB Hemoglobin A1c Today E11.65 - Type 2 diabetes mellitus with hyperglycemia Referrals Nephrology Referral R80.9 - Proteinuria, unspecified Endocrinology Referral E11.65 - Type 2 diabetes mellitus with hyperglycemia Medications: New metformin 500 mg PO BID 90 days 180 tabs 1RF E11.65 - Type 2 diabetes mellitus with hyperglycemia cholecalciferol (vitamin D3) 50 mcg PO DAILY 90 days 90 caps 1RF dulaglutide (Trulicity) 0.75 mg (0.5 mL) subcut QWEEK 4 weeks 2 mL 4RF E11.65 - Type 2 diabetes mellitus with hyperglycemia lisinopril 5 mg PO DAILY 90 days 90 tabs 1RF Refilled rosuvastatin 20 mg PO BEDTIME 90 days 90 tabs 1RF E78.5 - Hyperlipidemia, unspecified pantoprazole (Protonix) 40 mg PO DAILY 20 tabs 0RF amlodipine 2.5 mg PO DAILY 90 days 90 tabs 3RF M79.7 - Fibromyalgia metoprolol tartrate 50 mg PO DAILY 90 days 90 tabs 3RF M79.7 - Fibromyalgia blood sugar diagnostic (FreeStyle Lite Strips) use 1 strip once a day 100 ea 2RF E11.9 - Type 2 diabetes mellitus without complications lancets (FreeStyle Lancets) Use 1 lancet once a day 100 ea 2RF E11.9 - Type 2 diabetes mellitus without complications Discontinued hydrochlorothiazide Discontinued Reason: Patient Completed Course 25 mg PO DAILY 90 days 90 tabs 3RF M79.7 - Fibromyalgia semaglutide (Ozempic) for 4 weeks Discontinued Reason: Insurance Denied 0.25 mg (0.368 mL) subcut QWEEK 4 weeks 1.472 mL 0RF E11.65 - Type 2 diabetes mellitus with hyperglycemia metformin Discontinued Reason: Patient Completed Course 850 mg PO BID 90 days 180 tabs 1RF Patient Instructions: - Take metformin 500 mg twice daily. - Reduce portions and adhere to a healthy diet to support weight loss. - Be aware of blood sugar levels and report significant changes. - Start lisinopril as instructed once available; stop hydrochlorothiazide. - Obtain and restart rosuvastatin for cholesterol management as prescriptions allow. - Follow up with stacker operator and bridge saw operator as referred for care coordination. - Monitor blood sugar regularly and report any abnormalities. - Seek immediate care if experiencing symptoms of extremely low or high blood sugar.
== END 2024-06-29 16:23 | disposition home or self-care (01) ==
LOC: HO.HMCH 15:56
PROVIDERS: PCP Internal Medicine; Visit Provider Internal Medicine
DX: E11.65 Type 2 diabetes mellitus with hyperglycemia (principal); E66.01 Morbid (severe) obesity due to excess calories; Z68.41 Body mass index [BMI] 40.0-44.9, adult; R80.9 Proteinuria, unspecified; I10 Essential (primary) hypertension; E78.5 Hyperlipidemia, unspecified; E55.9 Vitamin D deficiency, unspecified

== ENCOUNTER 2024-07-14 09:13 | Emergency (ER) | payer OTHER, SELFPAY ==
--- NOTE | ~2024-07-14 | XR_ITS ---
EXAMINATION: XR FOOT, RIGHT CLINICAL INFORMATION: pain/redness COMPARISON: None available. TECHNIQUE: AP, lateral, and oblique views of the right foot. FINDINGS: No fracture, dislocation, or suspicious bone lesion. Normal bone mineralization. Normal alignment. Joint spaces are preserved. No significant arthropathy. Normal plantar arch. Large plantar and moderate sized dorsal calcaneal spurs. No significant ankle joint effusion. Mild soft tissue swelling of the dorsal forefoot. XR/XR foot RT min 3V IMPRESSION: 1. No acute bony findings of the right foot. 2. Mild soft tissue swelling of the dorsal forefoot.. Large plantar and moderate sized dorsal calcaneal spurs. Electronically signed by: Jesus Manuel Farnsworth MD 07/14/2024 10:09 AM EDT
[2024-07-14 09:15] VITALS: BP 153/72; PULSE 93; RESP 20; TEMP 36.4; O2SAT 96; BMI 44.1
--- NOTE | 2024-07-14 11:25 | ED_ITS ---
HPI - General Adult General Chief complaint: Extremity Injury, Lower Stated complaint: Toenail Infection Time Seen by Provider: 07/14/24 11:24 Source: patient and full time staff interpreter (all interactions with this patient were facilitated with an [facility] approved sign language interpreter) Mode of arrival: ambulatory Limitations: language barrier (all interactions with this patient were facilitated with an [facility] approved sign language interpreter) History of Present Illness ED Provider: Sherry Dumont PA-C HPI narrative: Patient is a 53 year old assigned female at with a history of fibromyalgia, DM, and HTN, presenting to the emergency department today with a swollen, painful, right 2nd toe. Patient states that 4 days ago she had a pedicure and starting 3 days ago she began to have redness, swelling, and pain of the right 2nd toe. Patient denies any dizziness, lightheadedness, abdominal pain, nausea, vomiting, fever, chills, blurry vision, double vision, loss of vision, chest pain, difficulty breathing, shortness of breath, back pain, night sweats, pain with urination, increased urinary frequency, increased urinary urgency, blood in her urine or stool, syncope or a near syncopal episode, recent trauma or falls, bowel incontinence, bladder incontinence, or any other complaints at this time. Onset (ago): day(s) (3) Location: right (2nd toe) Relieving factors: none Exacerbating factors: none Associated symptoms: denies other symptoms Treatments prior to arrival: none Related Data Previous Rx's ?Medication ?Instructions ?Recorded blood pressure monitor #1 ea 05/26/21 blood-glucose meter (FreeStyle #1 ea 09/25/21 Lite Meter kit) amlodipine 2.5 mg tablet 2.5 mg PO DAILY 90 days #90 tabs 06/29/24 blood sugar diagnostic (FreeStyle #100 ea 06/29/24 Lite Strips) cholecalciferol (vitamin D3) 50 50 mcg PO DAILY 90 days #90 caps 06/29/24 mcg (2,000 unit) capsule dulaglutide 0.75 mg/0.5 mL 0.75 mg (0.5 mL) subcut QWEEK 4 06/29/24 subcutaneous pen injector weeks #2 mL (Trulicity) lancets 28 gauge (FreeStyle #100 ea 06/29/24 Lancets) lisinopril 5 mg tablet 5 mg PO DAILY 90 days #90 tabs 06/29/24 metformin 500 mg tablet 500 mg PO BID 90 days #180 tabs 06/29/24 metoprolol tartrate 50 mg tablet 50 mg PO DAILY 90 days #90 tabs 06/29/24 pantoprazole 40 mg tablet,delayed 40 mg PO DAILY #20 tabs 06/29/24 release (Protonix) rosuvastatin 20 mg tablet 20 mg PO BEDTIME 90 days #90 tabs 06/29/24 cephalexin 500 mg capsule 500 mg PO Q6H 7 days #28 caps 07/14/24 doxycycline hyclate 100 mg tablet 100 mg PO BID 7 days #14 tabs 07/14/24 Allergies Allergy/AdvReac Type Severity Reaction Status Date / Time sumatriptan Allergy Mild Itching Verified 07/14/24 09:18 Penicillins [PCN] Allergy Unknown hives & Verified 07/14/24 09:18 rash seafood Allergy Mild Itching Uncoded 06/29/24 16:09 Review of Systems 2 Constitutional: Constitutional: Reports no additional constitutional complaints, Denies chills, Denies fever(s) and Denies night sweats Eyes: Eyes: Reports no additional eye complaints, Denies blurry vision, Denies change in vision, Denies diplopia, Denies eye discharge, Denies loss of vision and Denies eye pain ENT: Denies dizziness Cardiovascular: Cardiovascular: Reports no additional cardiovascular complaints, Denies chest pain, Denies lightheadedness, Denies Loss of Consciousness and Denies dyspnea Respiratory: Respiratory: Reports no additional respiratory complaints and Denies dyspnea Gastrointestinal: Gastrointestinal: Reports no additional gastrointestinal complaints, Denies abdominal pain, Denies melena, Denies hematochezia, Denies change in bowel habits and Denies change in stool character Genitourinary: Genitourinary: Denies hematuria, Denies urinary frequency, Denies dysuria, Denies urinary incontinence, Denies urinary hesitancy and Denies urinary urgency Musculoskeletal: Musculoskeletal: Reports no additional musculoskeletal complaints, Denies numbness and Denies tingling Comments: right 2nd toe redness, pain, swelling Neurologic: Denies dizziness, Denies loss of vision, Denies numbness and Denies tingling Psychiatric: Psychiatric: Reports no additional psychiatric complaints Endocrine: Endocrine: Reports no additional endocrine complaints Hematologic/Lymphatic: Hematologic/Lymphatic: Reports no additional hematologic/lymphatic complaints Allergic/Immunologic: Allergic/Immunologic: Reports no additional allergic/immunologic complaints [facility] Past Medical History Attestation statement: The following information was validated with the patient. Source: old records reviewed and nursing notes reviewed Medical History Tubular adenoma On beta sami at home Morbid obesity Fibromyalgia Mitral valve prolapse HTN (hypertension) Surgical History Hx of colonoscopy Hx laparoscopic cholecystectomy History of tubal ligation History of hysterectomy History of Family History Family History Father Chronic mental illness Prostate cancer Lung cancer Alzheimers disease Mother Non-Hodgkin lymphoma Social History Social History Household Members: Family Housing: House Alcohol intake: never Comment: pt resting comfortably Patient Tobacco Use Status: Never used Tobacco e-Cigarette/Vaping Use: Never Used Second Hand Smoke Exposure: No Advance Directives: No Advance Directives Information Provided: No Do you have a plan to hurt others: No Plan service: No Current occupational status: employed Current occupational exposures/hazards: No Cognitive needs: No Hearing needs: No Vision needs: Yes Physical Exam ED Vital Signs: Vital Signs - 24 hr 07/14/24 09:15 07/14/24 12:37 Temperature 97.5 F 98.2 F Pulse Rate 93 65 Respiratory Rate 20 16 Blood Pressure 153/72 H 133/75 Pulse Oximetry 96 98 Oxygen Delivery Method Room Air Room Air BMI result Body Mass Index 44.1 Const General: cooperative, no acute distress, alert and awake Nutritional Appearance: well nourished Orientation/consciousness: patient oriented x3 HENMT Head: Yes normal to inspection and Yes atraumatic Ears: hearing grossly normal bilaterally and external ears normal General nose exam: Normal external nose present, no nasal discharge noted and no epistaxis Face and sinus: Yes normal facial exam, No abrasion and No laceration Mouth: Normal oral and palatal mucosa present, no drooling and no muffled voice Eyes General: appearance normal, both eyes and all related structures Periorbital: periorbital findings normal Eyelids: Yes eyelids normal Conjunctivae: conjunctivae normal Pupils: Equal, round and reactive pupils present EOM: EOMs intact bilaterally Neck Neck: Yes normal visual inspection, Yes full ROM and Yes no lymphadenopathy Resp Effort & Inspection: normal respiratory effort and able to speak in complete sentences Neuro General: patient oriented x3, moves all extremities and CN's II-XI intact bilaterally Cranial nerves: Yes Equal, round and reactive pupils present Cognition (Neuro): normal cognition Extrem Other: General: Yes full ROM and Yes capillary refill normal Psych Appearance: grossly normal Mental Status: mental status grossly normal Affect: normal affect Attitude: cooperative Thought process: Normal thought process present Thought content: Normal thought content present Insight: Good insight present (Psych) Medical Decision Making Medical Decision Making MDM Narrative: Patient is a 53 year old assigned female at with a history of fibromyalgia, DM, and HTN, presenting to the emergency department today with a swollen, painful, right 2nd toe. Patient's physical exam was as noted in the physical exam portion of this note. Patient's right 2nd toe shows evidence of cellulitis. Patient's right foot x-ray showed no acute process. I explained my physical exam findings as well as all test results to the patient. I answered all questions asked by the patient. I stressed the importance of the patient taking her medication as directed (either prescribed or as the over the counter packaging recommends). I stressed the importance of the patient following up with her primary care provider and podiatry. I stressed the importance of the patient returning to the emergency department immediately if her symptoms were to worsen or if she were to develop any dizziness, shortness of breath, difficulty breathing, chest pain, blurry vision, loss of vision, nausea, vomiting, abdominal pain, fever, chills, back pain, or any other complaints. Patient verbalized agreement and understanding with this treatment plan and discharge. Differential Diagnosis Differential Diagnoses: The differential diagnosis associated with the presentation includes Cellulitis Osteomyelitis Admission/Observation Consideration of admission/observation: Escalation of care including admission/observation considered Patient would have been admitted to the hospital had her work up had any findings where hospital admission was appropriate and her clinical presentation warranted hospital admission. Independent Interpretation I performed an independent interpretation of an: Plain X-Ray Interpretation: My interpretation is in agreement with the radiologist's impression of this imaging study. L EXAMINATION: XR FOOT, RIGHT CLINICAL INFORMATION: pain/redness COMPARISON: None available. TECHNIQUE: AP, lateral, and oblique views of the right foot. FINDINGS: No fracture, dislocation, or suspicious bone lesion. Normal bone mineralization. Normal alignment. Joint spaces are preserved. No significant arthropathy. Normal plantar arch. Large plantar and moderate sized dorsal calcaneal spurs. No significant ankle joint effusion. Mild soft tissue swelling of the dorsal forefoot. XR/XR foot RT min 3V IMPRESSION: 1. No acute bony findings of the right foot. 2. Mild soft tissue swelling of the dorsal forefoot.. Large plantar and moderate sized dorsal calcaneal spurs. Electronically signed by: Jesus Manuel Farnsworth MD 07/14/2024 10:09 AM EDT RP Dictated By: Jesus Manuel Farnsworth MD Signed By: Electronically signed by Jesus Manuel Farnsworth MD 07/14/24 1009 Radiology Impression Discussion of test interpretation with radiology: I have reviewed the radiologist's reading. Prescription Management I considered prescription management with: Antibiotic (Patient prescribed antibiotics for right 2nd toe cellulitis) Chronic Conditions Patient?s care impacted by: Diabetes Discharge Plan Discharge Clinical Impression: Infection of toe, Cellulitis Patient Disposition: Home, Self-Care Instructions: Cellulitis (ED) Additional Instructions: Your toe is infected but there is no evidence that the infection has reached the bone. You MUST take your antibiotics as prescribed. Follow up with podiatry (cam specialist). Follow up with your primary care provider. Return to the emergency department immediately if your symptoms worsen or if you develop any dizziness, shortness of breath, difficulty breathing, chest pain, blurry vision, loss of vision, nausea, vomiting, abdominal pain, fever, chills, back pain, or any other complaints. Shah dedo del pie est? infectado, theresa no hay evidencia de que la infecci?n haya llegado al hueso. Debe melita los antibi?ticos seg?n lo prescrito. Consulte con un pod?logo (especialista en pies). Yosvany?seguimiento?con shah m?dico de atenci?n primaria. Acuda inmediatamente al servicio de urgencias si john s?ntomas empeoran o si presenta falta de aliento, dificultad para respirar, dolor tor?cico, mareos, aturdimiento, dolor de espalda, dolor abdominal, fiebre, escalofr?os o cualquier otro s?ntoma. Please see the information below about our Patient Portal. If you are not yet enrolled in the [facility] Patient Portal, you will receive an enrollment email invitation following your visit to any [facility] setting. You may also self-enroll in the Patient Portal by visiting our website: [email or web address] The following information is required to access the Patient Portal: - Your [facility] Medical Record Number - Your personal home email address (must match what is in your electronic medical record, Registration staff can assist with this) - Name - Date of Capabilities of the Patient Portal: - Message some providers - View upcoming appointments - Access your health summary, medical history, and visit history - View current conditions and allergies - View procedure and lab results - View your medications, including guidelines, side effects, and precautions - Complete pre-appointment questionnaires requested by your provider - Ready summary reports of your office visits and procedures To access the Patient Portal Mobile Gavin, follow these directions: - Search [place] in the [employer] Store or [employer] Store - Download the Gavin - Search for [facility] - Enter your login/password Portal del paciente Si usted no esta inscrito en el portal de pacientes de [facility], recibira sean invitacion de inscripcion despues de shah visita al [facility] o al [facility] via correo electronico. Tambien puede inscribirse voluntariamente en el portal de pacientes visitando nuestra pagina web: [email or web address] La siguiente informacion sera requerida para acceder al portal: - Shah ector de historia medica de [facility] - Shah direccion de correo electronico personal - Nombre - Fecha de nacimiento Capacidades: Las siguientes capacidades estan disponibles en el portal de pacientes: - Enviar mensajes a algunos doctores - Verificar proximas citas - Acceso a shah historial de natasha, registro medico e historial de visitas - Nina las condiciones actuales y alergias nina procedimientos y resultados del laboratorio - Nina john medicamentos, incluyendo las pautas - Efectos secundarios y precauciones - Completar o llenar formularios / cuestionarios de - Citas solicitadas por shah doctor - Leer los resumenes de reportes medicos de john visitas y procedimientos [place] acceder a la aplicacion movil: - Vicente Sitemasher [facility] en la [employer] Store o [employer] Store - Descargue la aplicacion - [facility] - Ingrese shah nombre de usuario / Contrasena Prescriptions: New cephalexin 500 mg capsule 500 mg PO Q6H 7 Days Qty: 28 0RF doxycycline hyclate 100 mg tablet 100 mg PO BID 7 Days Qty: 14 0RF No Action (DME) blood pressure monitor Kit See Rx Instructions .Route Qty: 1 0RF Rx Instructions: As directed (DME) blood-glucose meter [FreeStyle Lite Meter] Kit See Rx Instructions .Route Qty: 1 0RF Rx Instructions: As directed metformin 500 mg tablet 500 mg PO BID 90 Days Qty: 180 1RF Trulicity 0.75 mg/0.5 mL pen injector 0.75 mg subcut QWEEK 28 Days Qty: 2 4RF lisinopril 5 mg tablet 5 mg PO DAILY 90 Days Qty: 90 1RF amlodipine 2.5 mg tablet 2.5 mg PO DAILY 90 Days Qty: 90 3RF rosuvastatin 20 mg tablet 20 mg PO BEDTIME 90 Days Qty: 90 1RF pantoprazole [Protonix] 40 mg tablet,delayed release (DR/EC) 40 mg PO DAILY Qty: 20 0RF metoprolol tartrate 50 mg tablet 50 mg PO DAILY 90 Days Qty: 90 3RF (DME) FreeStyle Lite Strips Strip See Rx Instructions .Route Qty: 100 2RF Rx Instructions: use 1 strip once a day (DME) lancets [FreeStyle Lancets] 28 gauge misc See Rx Instructions .Route Qty: 100 2RF Rx Instructions: Use 1 lancet once a day cholecalciferol (vitamin D3) 50 mcg (2,000 unit) capsule 50 mcg PO DAILY 90 Days Qty: 90 1RF Referrals: Maximiliano Burns DPM [Physician] - (Call to establish and follow up with podiatry (cam specialist). Llamar para establecer y seguimiento con pod?logo (especialista en pies). ) Bailey Francois MD [Primary Care Provider] - Stand Alone Forms: Work/School Release Interventions: ED Discharge Assessment Last Done: 07/14/24 12:37 Discharge Date/Time: 07/14/24 12:38 Print Language: Nepali
[2024-07-14 12:37] VITALS: BP 133/75; PULSE 65; RESP 16; TEMP 36.8; O2SAT 98
== END 2024-07-14 12:38 | disposition home or self-care (01) ==
PROVIDERS: Emergency Provider Emergency Medicine Emergency Medical Services; PCP Internal Medicine
DX: L03.031 Cellulitis of right toe (principal); M79.674 Pain in right toe(s); E11.9 Type 2 diabetes mellitus without complications; I10 Essential (primary) hypertension; Z79.899 Other long term (current) drug therapy
CPT/HCPCS: 73630; 99282; 99283

== ENCOUNTER → 2024-07-14 09:19 | Outpatient (BNV) | payer OTHER, SELFPAY | PROVIDERS: PCP Internal Medicine; Visit Provider Radiology Diagnostic Radiology | DX: M77.31 Calcaneal spur, right foot (principal) | CPT/HCPCS: 73630 ==

== ENCOUNTER 2024-07-19 15:52 | Outpatient (AMB) | payer OTHER, SELFPAY ==
[2024-07-19 15:58] VITALS: BP 114/70; PULSE 97; O2SAT 99; BMI 44.5
--- NOTE | 2024-07-19 15:58 | HO.NEPHOV ---
Vital Signs 07/19/24 15:58 Height 5 ft 3 in Weight 251 lb 6 oz BMI 44.5 BP 114/70 Blood Pressure Location Rt brachial Position Sitting Pulse 97 Pulse Source Pulse Oximeter Pulse Oximetry (%) 99 Oxygen Delivery Method Room Air Intake Visit Reasons: INP: Proteinuria Construction Director Required: Yes Construction Director Language: Design Director Services: Construction Director Offered & Declined ([facility] Construction Director services refused ) Accompanied by: Self / Same As Patient Allergies sumatriptan Allergy (Mild, Verified 08/04/24 14:35) Itching Penicillins (PCN) Allergy (Unknown, Verified 08/04/24 14:35) hives & rash seafood Allergy (Mild, Uncoded 08/04/24 14:35) Itching HPI Comments Details: I had the privilege of seeing Iris in consultation for proteinuria. She is a 53-year-old female with type 2 diabetes mellitus. Her hemoglobin A1c is significantly elevated at 11.9%, with marked hyperglycemia reported as being in the 300s. The patient has been on metformin but at the higher dose of 850 mg twice daily which caused considerable discomfort, thus impacting her adherence. She also faces challenges with insurance approving alternative diabetic medications like Ozempic without burr grinder involvement. She has history of proteinuria along with poorly controlled hypertension, currently managed with amlodipine and lisinopril. She has a background of obesity with a BMI of 40, contributing to her diabetes and is currently attempting lifestyle changes for weight management along with her current medication regimen. She denies any CAD, CHF, CVA, PAD, MICA, carotid stenosis, edema, hematuria, recurrent UTI, deafness, sinusitis, H/O hepatitis, H/O HIV or orthostatic symptoms. Her serum creatinine has been normal. 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 Tubular adenoma On beta sami at home Morbid obesity Fibromyalgia Mitral valve prolapse HTN (hypertension) Surgical History Hx of colonoscopy Hx laparoscopic cholecystectomy History of tubal ligation History of hysterectomy History of Family History Father Chronic mental illness Prostate cancer Lung cancer Alzheimers disease Mother Non-Hodgkin lymphoma Social History Household Members: Family Housing: House Alcohol intake: never Comment: pt resting comfortably Patient Tobacco Use Status: Never used Tobacco e-Cigarette/Vaping Use: Never Used Second Hand Smoke Exposure: No service: No Current occupational status: employed Current occupational exposures/hazards: No Cognitive needs: No Hearing needs: No Vision needs: Yes Female Reproductive History Menstrual Age of Menarche: 11 Review of Systems Const All systems reviewed & are unremarkable except as noted in HPI and below Physical Exam Vital Signs: Last Vital Signs Pulse 97 07/19/24 15:58 BP 114/70 07/19/24 15:58 Pulse Ox 99 07/19/24 15:58 Oxygen Delivery Method Room Air 07/19/24 15:58 BMI result Body Mass Index 44.5 Const General: comfortable and no acute distress Orientation/consciousness: patient oriented x3 HEENT Head: Yes normocephalic Mouth: Normal oral and palatal mucosa present Eyes EOM: EOMs intact bilaterally Neck Neck: Yes supple Resp Auscultation: clear to auscultation bilaterally Cardio Jugular venous distension: no JVD Rate: regular rate GI Palpation (GI): Soft to palpation Auscultation: normal bowel sounds General: Yes no CVA tenderness Back/Spine/Pelvis Back: no CVA tenderness Skin General skin exam: no rashes or lesions noted Neuro General: patient oriented x3 and moves all extremities Extrem General: Yes no pedal edema Results Reviewed Nephrology Results: Hgb, (12.0-16.0) 14.5 g/dl 06/26/24 WBC, (4.8-10.8) 6.4 X10*3/uL 06/26/24 Plt Count, (160-400) 242 X10*3/uL 06/26/24 Sodium, (135-145) 133 mmol/L L 06/26/24 Potassium, (3.3-5.1) 4.5 mmol/L 06/26/24 Chloride, (96-108) 98 mmol/L 06/26/24 Carbon Dioxide, (22-29) 26 mmol/L 06/26/24 BUN, (9-16) 13 mg/dL 06/26/24 Creatinine, (0.5-1.4) 0.78 mg/dL 06/26/24 Calcium, (8.4-10.2) 9.0 mg/dL Δ 06/26/24 Urine Creatinine 152.36 mg/dL 06/24/24 Assessment & Plan Assessment & Plan (1) Microalbuminuria: Code(s): R80.9 - Proteinuria, unspecified Category: Medical (2) HTN (hypertension): Code(s): I10 - Essential (primary) hypertension Category: Medical Qualifiers: Hypertension type: primary hypertension Qualified Code(s): I10 - Essential (primary) hypertension (3) Diabetic nephropathy: Code(s): E11.21 - Type 2 diabetes mellitus with diabetic nephropathy Category: Medical Qualifiers: Diabetes mellitus type: type 2 Qualified Code(s): E11.21 - Type 2 diabetes mellitus with diabetic nephropathy Plan Iris has proteinuria likely from diabetic nephropathy. She has a BMI of 44 putting her at risk for secondary FSGS. She needs to loose weight. Her diabetic control is poor. Her renal functions are normal. She is on trulicity. She may be a candidate for GLP 1 agonist. She is on ACEI which I shall continue to optimize the dose with time and evolving data. I started her on Jardiance 10 mg daily which I plan to increase at next visit. There is no indication for renal biopsy. I shall continue to closely monitor her and do more investigations if needed. F/U labs ordered and F/U appointment given. Answered all questions. Orders: Orders Creatinine 1 Month E11.21 - Type 2 diabetes mellitus with diabetic nephropathy Electrolytes 1 Month E11. - Type 2 diabetes mellitus with diabetic nephropathy Blood Urea Nitrogen 1 Month E11. - Type 2 diabetes mellitus with diabetic nephropathy Protein Creatinine Ratio, Ur 1 Month E11.21 - Type 2 diabetes mellitus with diabetic nephropathy Medications: New empagliflozin (Jardiance) 10 mg PO DAILY 90 tabs 6RF 90 days Coding Level of Care Code New Pt Level 4 (18118) Diagnoses Microalbuminuria R80.9 Primary hypertension I10 Hypertension type: primary hypertension Diabetic nephropathy associated with type 2 diabetes mellitus E11. Diabetes mellitus type: type 2
== END 2024-07-19 16:23 | disposition home or self-care (01) ==
LOC: HO.HKA 15:53
PROVIDERS: PCP Internal Medicine; Referring Provider Internal Medicine; Visit Provider Internal Medicine Nephrology
DX: R80.9 Proteinuria, unspecified (principal); I10 Essential (primary) hypertension; E11.21 Type 2 diabetes mellitus with diabetic nephropathy
CPT/HCPCS: 99204

== ENCOUNTER → 2024-07-19 15:52 | Outpatient (BNVA) | payer OTHER, SELFPAY | PROVIDERS: PCP Internal Medicine; Referring Provider Internal Medicine; Visit Provider Internal Medicine Nephrology | DX: E11.21 Type 2 diabetes mellitus with diabetic nephropathy (principal); R80.9 Proteinuria, unspecified; I10 Essential (primary) hypertension | CPT/HCPCS: 99202 ==

== ENCOUNTER 2024-08-04 14:29 | Outpatient (AMB) | payer OTHER, SELFPAY ==
--- NOTE | 2024-08-04 14:32 | MHC.OFFVIS ---
Vital Signs 08/04/24 14:34 Height 5 ft 3 in Weight 250 lb 3.594 oz BMI 44.3 BP 108/84 Blood Pressure Location Rt brachial Position Sitting Pulse 84 Pulse Source Pulse Oximeter Pulse Oximetry (%) 97 Oxygen Delivery Method Room Air Intake Visit Reasons: Type 2 diabetes mellitus with hyperglycemia Intake Note: New patient internally referred by PCP to establish care for Diabetes. Last Diabetic Eye exam: 2019, patient is requesting a referral. Last Podiatry Visit: Does not see a Cardiology Specialist Random Glucose: 140 mg/dl HgA1C: 11.3% 06/29/2024 Exercise Teacher Required: Yes Exercise Teacher Language: Administrative Officer Services: Exercise Teacher Present Exercise Teacher Name: [facility] [place] [id number] Information Interpreted: non-clinical & clinical Accompanied by: Self / Same As Patient Allergies sumatriptan Allergy (Mild, Verified 08/04/24 14:35) Itching Penicillins (PCN) Allergy (Unknown, Verified 08/04/24 14:35) hives & rash seafood Allergy (Mild, Uncoded 08/04/24 14:35) Itching Medication List - Last Reconciled 08/04/24 by JOHNATHAN Beckford amlodipine 2.5 mg PO DAILY 90 days blood pressure monitor As directed blood sugar diagnostic (FreeStyle Lite Strips) use 1 strip once a day blood-glucose meter (FreeStyle Lite Meter kit) As directed cephalexin 500 mg PO Q6H 7 days cholecalciferol (vitamin D3) 50 mcg PO DAILY 90 days doxycycline hyclate 100 mg PO BID 7 days dulaglutide (Trulicity) 0.75 mg (0.5 mL) subcut QWEEK empagliflozin (Jardiance) 10 mg PO DAILY 90 days lancets (FreeStyle Lancets) Use 1 lancet once a day lisinopril 5 mg PO DAILY 90 days metformin 500 mg PO DAILY metoprolol tartrate 50 mg PO DAILY 90 days pantoprazole (Protonix) 40 mg PO DAILY PRN rosuvastatin 20 mg PO BEDTIME 90 days HPI Comments Details: This is a 53-year-old female with a past medical history of hypertension, type 2 diabetes, hyperlipidemia, obesity, mitral valve disorder and fibromyalgia presenting for an initial consult for diabetic management. Patient says she was diagnosed a year ago with type 2 diabetes however in review of her chart it looks like her hemoglobin A1c was in the diabetic range in 2021. Hemoglobin A1c jumped from 7.7% to 11.3%. Patient says she stopped taking her medication because she wanted to see endocrinology. She has a glucometer with her today. Her 14 day average glucose is 99 and her 30 day average is 109. Current medication regimen: Trulicity 0.75 mg weekly, Jardiance 10 mg daily, metformin 500 mg twice a day. She never started Trulicity because the insurance did not have enough info for the PA. She cannot tolerate higher doses of Metformin due to stomach upset. She started Jardiance about a month ago. This is prescribed by Nephrology. Diet: Breakfast- 3am, soda crackers, coffee with monk fruit sugar 9:30 am fruits, tuna sandwich, spinach wraps with chicken drinks water throughout the day dinner at home is a mashed potato or Monica rice, vegetables like squash and usually chicken In the evening she may have some cereal She drinks a little orange juice sometimes. No soda. Nonsmoker. No alcohol. She walks to and from her job at [employer]. Hypoglycemia symptoms: none Hyperglycemia symptoms: Polyuria, polydipsia, dry mouth Eye exam: needs referral Microvascular complications: nephropathy (microalbuminuria) Macrovascular complications: none Hypertension: treated with amlodipine, lisinopril, metoprolol Hyperlipidemia: treated with rosuvastatin, resumed after visit in June with PCP She has a hepatic steatosis. ROS: Constitutional: No unexplained weight loss, fever, chills, fatigue or night sweats. Eyes: No vision changes, blurry vision, double vision, eye pain, eye redness Respiratory: No shortness of breath, cough or sputum production. Cardiovascular: No chest pain, chest pressure or chest discomfort. No palpitations or pedal edema. Gastrointestinal: No anorexia, nausea, vomiting or diarrhea. No abdominal pain or blood in stool. Neurologic: No headache, dizziness, syncope, unilateral weakness, ataxia, numbness or tingling in the extremities. Endocrine: See HPI Physical exam: Constitutional: Alert, in no distress. Head: Normocephalic. Neck: Supple, Full range of motion. No lymphadenopathy. No palpable thyroid masses. Respiratory: Clear to auscultation. Cardiovascular: S1 S2 regular. No murmurs. Right foot: Warm and well perfused. No clubbing, cyanosis or edema. Intact DP pulse. Intact vibratory sensation. Intact sensation to monofilament. No open wounds. Left foot: Warm and well perfused. No clubbing, cyanosis or edema. Intact DP pulse. Intact vibratory sensation. Intact sensation to monofilament. No open wounds. 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 Tubular adenoma On beta sami at home Morbid obesity Fibromyalgia Mitral valve prolapse HTN (hypertension) Surgical History Hx of colonoscopy Hx laparoscopic cholecystectomy History of tubal ligation History of hysterectomy History of Family History Father Chronic mental illness Prostate cancer Lung cancer Alzheimers disease Mother Non-Hodgkin lymphoma Social History Household Members: Family Housing: House Alcohol intake: never Comment: pt resting comfortably Patient Tobacco Use Status: Never used Tobacco e-Cigarette/Vaping Use: Never Used Second Hand Smoke Exposure: No service: No Current occupational status: employed Current occupational exposures/hazards: No Cognitive needs: No Hearing needs: No Vision needs: Yes Female Reproductive History Menstrual Age of Menarche: 11 Physical Exam Vital Signs: Last Vital Signs Pulse 84 08/04/24 14:34 BP 108/84 08/04/24 14:34 Pulse Ox 97 08/04/24 14:34 Oxygen Delivery Method Room Air 08/04/24 14:34 BMI result Body Mass Index 44.3 Results Reviewed Results Reviewed: Laboratory Last Values Glucose (Clinic) 140 mg/dL (60-115) H 08/04/24 14:46 Laboratory Tests 08/10/23 12/21/23 06/24/24 15:25 15:21 08:40 Creatinine Estimated GFR Hgb A1c (Clinic) 7.8 H 7.7 H AST ALT Triglycerides 132 Cholesterol 187 LDL Cholesterol, Calc 122 H HDL Cholesterol 39 L 25-OH Vitamin D Total 22.9 L Beta-Hydroxybutyrate Urine Creatinine 152.36 Urine Microalbumin 165.0 Microalb/Creat Ratio 108.2 H 06/26/24 06/29/24 12:42 16:07 Creatinine 0.78 Estimated GFR > 60 Hgb A1c (Clinic) 11.3 H AST 38 H ALT 50 H Triglycerides Cholesterol LDL Cholesterol, Calc HDL Cholesterol 25-OH Vitamin D Total Beta-Hydroxybutyrate 0.21 Urine Creatinine Urine Microalbumin Microalb/Creat Ratio Assessment & Plan Assessment & Plan (1) Hyperlipidemia LDL goal <70: Code(s): E78.5 - Hyperlipidemia, unspecified Category: Medical Plan: Reinforced compliance with rosuvastatin. Recommended Mediterranean diet. Continue walking for exercise. (2) HTN (hypertension): Code(s): I10 - Essential (primary) hypertension Category: Medical Plan: Recommended low-sodium diet and avoidance of caffeine. Continue medications. (3) Type 2 diabetes mellitus with renal complication: Code(s): E11.29 - Type 2 diabetes mellitus with other diabetic kidney complication Category: Medical Plan: In summary this is a 53-year-old female with type 2 diabetes with nephropathy. Discussed pathophysiology of Type II Diabetes Mellitus with the patient in detail.? I explained the nursing home risks and complications associated with uncontrolled diabetes including nephropathy, neuropathy, peripheral vascular disease, retinopathy, increased risk of heart disease and stroke.? Discussed lifestyle modification with the patient. Recommended 30 minutes of moderately vigorous exercise 5 days per week to promote weight loss. The patient is referred for an eye exam. Refer to dietitian. We discussed CGM, but the patient defers it, and it is not likely the insurance will cover it because she does not have insulin-dependent diabetes or problematic hypoglycemia. Reviewed treatment for hypoglycemia. Written instructions provided. Glucose tablets sent to pharmacy. Continue Jardiance 10 mg daily. Start Trulicity 0.75 mg daily. We will process the prior authorization. She denies contraindications. Side effects reviewed. When you start Trulicity decrease metformin to 500 mg once a day. If you have low blood sugars after this. Metformin completely. Follow up in 4 weeks. (4) Microalbuminuric diabetic nephropathy: Code(s): E11.21 - Type 2 diabetes mellitus with diabetic nephropathy Category: Medical Plan: Continue Jardiance. Managed by Nephrology. Medications: New dulaglutide (Trulicity) 0.75 mg (0.5 mL) subcut QWEEK 2 mL 1RF JOHNATHAN Beckford glucose (Dex4 Glucose Quick Dissolve) until symptoms of low blood sugar are controlled 16 grams (4 x 4 gram) PO Q15M PRN 10 tabs 3RF hypoglycemia Leonor E JOHNATHAN Johnson Changed From metformin 500 mg PO BID 90 days 180 tabs 1RF E11.65 - Type 2 diabetes mellitus with hyperglycemia To metformin 500 mg PO DAILY E11.65 - Type 2 diabetes mellitus with hyperglycemia Bailey Akers MD Discontinued dulaglutide (Trulicity) Discontinued Reason: Doctor's Order 0.75 mg (0.5 mL) subcut QWEEK 4 weeks 2 mL 4RF E11.65 - Type 2 diabetes mellitus with hyperglycemia Patient Instructions: Continue Jardiance 10 mg daily When you start Trulicity 0.75 mg weekly, decrease Metformin to 500 mg once daily. If you have blood sugars under 70 (too low), then stop taking Metformin completely. If you experience low blood sugar (under 70), treat this by eating a chewable fruit candy like skittles or jelly beans (about 8 pieces), 4 ounces (1/2 cup) of fruit juice (not diet), 1 tablespoon of honey or 4 glucose tablets. If your blood sugar is under 55, take double the amount of one of the above. Recheck your blood sugar in 15 minutes. www.diabetes.org I referred you to the dieticiian. Contin?e con Jardiance 10 mg al d?a. Al iniciar Trulicity 0.75 mg semanalmente, reduzca la dosis de metformina a 500 mg sean vez al d?a. Si mcgee nivel de glucosa en azucena es inferior a 70 (demasiado bajo), suspenda por completo la metformina. Si experimenta niveles bajos de az?car en azucena (menos de 70), tr?telo comiendo un caramelo masticable de fruta maria elena Skittles o Jelly Beans (aproximadamente 8 piezas), 113 ml (1/2 taza) de jugo de fruta (no diet?chadwick), 1 cucharada de miel o 4 tabletas de glucosa. Si mcgee nivel de az?car en azucena es nick de 55, tome el doble de la cantidad de caity de los mencionados. Vuelva a medir mcgee nivel de az?car en azucena en 15 minutos. www.diabetes.org Le he derivado al dietista. Coding Level of Care Code New Pt Level 5 (98996) Complex EM visit Add On G2211 Diagnoses Hyperlipidemia LDL goal <70 E78.5 HTN (hypertension) I10 Type 2 diabetes mellitus with renal complication E11.29 Microalbuminuric diabetic nephropathy E11.21 Time Spent (min) 69 Comment Chart review, direct patient care, completing documentation
[2024-08-04 14:34] VITALS: BP 108/84; PULSE 84; O2SAT 97; BMI 44.3
[2024-08-04 14:53] LABS: Glucose, Whole Blood 140 mg/dL (60-115)
== END 2024-08-04 15:49 | disposition home or self-care (01) ==
LOC: HO.ENCR 14:30
PROVIDERS: PCP Internal Medicine; Visit Provider Physician Assistant Medical
DX: E78.5 Hyperlipidemia, unspecified (principal); I10 Essential (primary) hypertension; E11.29 Type 2 diabetes mellitus with other diabetic kidney complication; E11.21 Type 2 diabetes mellitus with diabetic nephropathy

== ENCOUNTER → 2024-08-04 14:29 | Outpatient (BNVA) | payer OTHER, SELFPAY | PROVIDERS: PCP Internal Medicine; Visit Provider Physician Assistant Medical | DX: E11.65 Type 2 diabetes mellitus with hyperglycemia (principal); E11.29 Type 2 diabetes mellitus with other diabetic kidney complication; E11.21 Type 2 diabetes mellitus with diabetic nephropathy; I10 Essential (primary) hypertension; E78.5 Hyperlipidemia, unspecified; Z79.4 Long term (current) use of insulin; Z79.84 Long term (current) use of oral hypoglycemic drugs | CPT/HCPCS: 82947; 99202 ==

== ENCOUNTER 2024-08-26 09:10 | Outpatient (REF) | payer OTHER, SELFPAY ==
[2024-08-26 10:18] LABS: Total Protein Urine Random < 7 mg/dL (<12)
[2024-08-26 10:20] LABS: Anion Gap 12 (12-20); Blood Urea Nitrogen 18 mg/dL (9-16); Carbon Dioxide 25 mmol/L (22-29); Chloride 106 mmol/L (96-108); Estimated Glomerular Filt Rate > 60; Potassium 4.2 mmol/L (3.3-5.1); Sodium 139 mmol/L (135-145)
== END 2024-08-26 09:11 | disposition home or self-care (01) ==
LOC: HO.LAB 09:10
PROVIDERS: PCP Internal Medicine; Visit Provider Internal Medicine Nephrology
DX: E11.21 Type 2 diabetes mellitus with diabetic nephropathy (principal)
CPT/HCPCS: 36415; 80051; 82565; 82570; 84156; 84520

== ENCOUNTER 2024-08-30 15:04 | Outpatient (AMB) | payer OTHER, SELFPAY ==
--- NOTE | 2024-08-30 15:11 | HO.NEPHOV_ITS ---
Vital Signs 08/30/24 15:12 Height 5 ft 3 in Weight 243 lb 2 oz BMI 43.1 BP 106/62 Blood Pressure Location Rt brachial Position Sitting Pulse 94 Pulse Source Pulse Oximeter Pulse Oximetry (%) 95 Oxygen Delivery Method Room Air Intake Visit Reasons: 1 MO FU-Conf Social Services Director Required: Yes Social Services Director Language: Door Frame Assembler Machine Services: Social Services Director Offered & Declined ([facility] [place] Accompanied by: Self / Same As Patient Allergies sumatriptan Allergy (Mild, Verified 08/30/24 15:11) Itching Penicillins (PCN) Allergy (Unknown, Verified 08/30/24 15:11) hives & rash seafood Allergy (Mild, Uncoded 08/04/24 14:35) Itching HPI Comments Details: I had the privilege of seeing Iris in follow up for proteinuria. She is a 53-year-old female with type 2 diabetes mellitus. Her hemoglobin A1c is significantly elevated at 11.9%, with marked hyperglycemia reported as being in the 300s. The patient has been on metformin but at the higher dose of 850 mg twice daily which caused considerable discomfort, thus impacting her adherence. She also faces challenges with insurance approving alternative diabetic medications like Ozempic without manager hair involvement. She has history of proteinuria along with poorly controlled hypertension, currently managed with amlodipine and lisinopril. She has a background of obesity with a BMI of 40, contributing to her diabetes and is currently attempting lifestyle changes for weight management along with her current medication regimen. She denies any CAD, CHF, CVA, PAD, MICA, carotid stenosis, edema, hematuria, recurrent UTI, deafness, sinusitis, H/O hepatitis, H/O HIV or orthostatic symptoms. Her serum creatinine has been normal. 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 Tubular adenoma On beta sami at home Morbid obesity Fibromyalgia Mitral valve prolapse HTN (hypertension) Surgical History Hx of colonoscopy Hx laparoscopic cholecystectomy History of tubal ligation History of hysterectomy History of Family History Father Chronic mental illness Prostate cancer Lung cancer Alzheimers disease Mother Non-Hodgkin lymphoma Social History Household Members: Family Housing: House Alcohol intake: never Comment: pt resting comfortably Patient Tobacco Use Status: Never used Tobacco e-Cigarette/Vaping Use: Never Used Second Hand Smoke Exposure: No service: No Current occupational status: employed Current occupational exposures/hazards: No Cognitive needs: No Hearing needs: No Vision needs: Yes Female Reproductive History Menstrual Age of Menarche: 11 Review of Systems Const All systems reviewed & are unremarkable except as noted in HPI and below Physical Exam Vital Signs: Last Vital Signs Pulse 94 08/30/24 15:12 BP 106/62 08/30/24 15:12 Pulse Ox 95 08/30/24 15:12 Oxygen Delivery Method Room Air 08/30/24 15:12 BMI result Body Mass Index 43.1 Const General: comfortable and no acute distress Orientation/consciousness: patient oriented x3 HEENT Head: Yes normocephalic Mouth: Normal oral and palatal mucosa present Eyes EOM: EOMs intact bilaterally Neck Neck: Yes supple Resp Auscultation: clear to auscultation bilaterally Cardio Jugular venous distension: no JVD Rate: regular rate GI Palpation (GI): Soft to palpation Auscultation: normal bowel sounds General: Yes no CVA tenderness Back/Spine/Pelvis Back: no CVA tenderness Skin General skin exam: no rashes or lesions noted Neuro General: patient oriented x3 and moves all extremities Extrem General: Yes no pedal edema Results Reviewed Nephrology Results: Sodium, (135-145) 139 mmol/L 08/26/24 Potassium, (3.3-5.1) 4.2 mmol/L 08/26/24 Chloride, (96-108) 106 mmol/L 08/26/24 Carbon Dioxide, (22-29) 25 mmol/L 08/26/24 BUN, (9-16) 18 mg/dL H 08/26/24 Creatinine, (0.5-1.4) 0.72 mg/dL 08/26/24 Urine Creatinine 67.38 mg/dL 08/26/24 Protein/Creatinin Ratio TNP 08/26/24 Assessment & Plan Assessment & Plan (1) Hypertension: Code(s): I10 - Essential (primary) hypertension Category: Medical Qualifiers: Hypertension type: primary hypertension Qualified Code(s): I10 - Essential (primary) hypertension (2) Type 2 diabetes mellitus with renal complication: Code(s): E11.29 - Type 2 diabetes mellitus with other diabetic kidney complication Category: Medical Qualifiers: Diabetes mellitus [facility] insulin use: without adjunct faculty for medical terminology use Diabetes mellitus complication detail: with nephropathy Qualified Code(s): E11.21 - Type 2 diabetes mellitus with diabetic nephropathy Plan Iris has proteinuria likely from diabetic nephropathy. She has a BMI of 44 putting her at risk for secondary FSGS. She needs to loose more weight. Her diabetic control is better. Her renal functions are normal. She is on trulicity. She may be a candidate for GLP 1 agonist. She is on ACEI which I shall continue to optimize the dose with time and evolving data. I started her on Jardiance 10 mg daily atthe last visit which I plan to increase at next visit. There is no indication for renal biopsy. I shall continue to closely monitor her and do more investigations if needed. F/U labs ordered and F/U appointment given. Answered all questions Orders: Orders Electrolytes 6 Months E11.21 - Type 2 diabetes mellitus with diabetic nephropathy, I10 - Essential (primary) hypertension Blood Urea Nitrogen 6 Months E11.21 - Type 2 diabetes mellitus with diabetic nephropathy, I10 - Essential (primary) hypertension Creatinine 6 Months E11.21 - Type 2 diabetes mellitus with diabetic nephropathy, I10 - Essential (primary) hypertension Protein Creatinine Ratio, Ur 6 Months E11.21 - Type 2 diabetes mellitus with diabetic nephropathy, I10 - Essential (primary) hypertension Coding Level of Care Code Est Pt Level 4 (51756) Diagnoses Primary hypertension I10 Hypertension type: primary hypertension Type 2 diabetes mellitus with diabetic nephropathy, without long-term current use of insulin E11.21 Diabetes mellitus adjunct faculty for medical terminology insulin use: without adjunct faculty for medical terminology use Diabetes mellitus complication detail: with nephropathy
[2024-08-30 15:12] VITALS: BP 106/62; PULSE 94; O2SAT 95; BMI 43.1
== END 2024-08-30 15:43 | disposition home or self-care (01) ==
LOC: HO.HKA 15:04
PROVIDERS: PCP Internal Medicine; Visit Provider Internal Medicine Nephrology
DX: I10 Essential (primary) hypertension (principal); E11.21 Type 2 diabetes mellitus with diabetic nephropathy
CPT/HCPCS: 99214

== ENCOUNTER → 2024-08-30 15:04 | Outpatient (BNVA) | payer OTHER, SELFPAY | PROVIDERS: PCP Internal Medicine; Visit Provider Internal Medicine Nephrology | DX: E11.29 Type 2 diabetes mellitus with other diabetic kidney complication (principal); E11.21 Type 2 diabetes mellitus with diabetic nephropathy; I10 Essential (primary) hypertension; R80.9 Proteinuria, unspecified; Z79.85 Long-term (current) use of injectable non-insulin antidiabetic drugs; Z79.899 Other long term (current) drug therapy | CPT/HCPCS: 99212 ==

== ENCOUNTER 2024-09-05 14:19 | Outpatient (AMB) | payer OTHER, SELFPAY ==
[2024-09-05 14:21] VITALS: BP 120/82; PULSE 86; O2SAT 98; BMI 43.0
--- NOTE | 2024-09-05 14:21 | A.OFFVIS_ITS ---
Vital Signs 09/05/24 14:21 Height 5 ft 3 in Weight 242 lb 8.136 oz BMI 43.0 BP 120/82 Blood Pressure Location Rt brachial Position Sitting Pulse 86 Pulse Source Pulse Oximeter Pulse Oximetry (%) 98 Oxygen Delivery Method Room Air Intake Visit Reasons: Type 2 diabetes mellitus with hyperglycemia Intake Note: Patient present today for T2DM follow up. Last Diabetic Eye exam: OVER DUE, New Referral was placed today. Last Podiatry Visit: Does not see a Rope Cleaner Random Glucose: 92 mg/dL HgA1C: 11.3% 06/29/2024 Underwriter Mortgage Loan Required: Yes Underwriter Mortgage Loan Language: Internet Marketing Manager Services: Underwriter Mortgage Loan Present Underwriter Mortgage Loan Name: JOSE ARMANDO Reid Accompanied by: Self / Same As Patient Allergies sumatriptan Allergy (Mild, Verified 09/05/24 14:22) Itching Penicillins (PCN) Allergy (Unknown, Verified 09/05/24 14:22) hives & rash seafood Allergy (Mild, Uncoded 09/05/24 14:22) Itching HPI Comments Details: This is a 53-year-old female with a past medical history of hypertension, type 2 diabetes, hyperlipidemia, obesity, mitral valve disorder and fibromyalgia presenting for an initial consult for diabetic management. Patient diagnosed in 2021. Hemoglobin A1c jumped from 7.7% to 11.3%. Patient says she stopped taking her medication because she wanted to see endocrinology. She has a glucometer with her today. Her 14 day average glucose is 90 and her 30 day average is 97 She had 1 high of 244 late night after a slice of pizza when she was traveling. No hypoglycemia. Current medication regimen: Trulicity 0.75 mg weekly, Jardiance 10 mg daily, metformin 500 mg once daily. Denies side effects on Trulicity. She has lost 8 lb! She is putting the effort in with her diet. Hypoglycemia symptoms: none Hyperglycemia symptoms: Polyuria, polydipsia, dry mouth Eye exam: needs referral Microvascular complications: nephropathy (microalbuminuria) Macrovascular complications: none Hypertension: treated with amlodipine, lisinopril, metoprolol Hyperlipidemia: treated with rosuvastatin, resumed after visit in June with PCP She has a hepatic steatosis. ROS: Constitutional: No unexplained weight loss, fever, chills, fatigue or night sweats. Eyes: No vision changes, blurry vision, double vision, eye pain, eye redness Respiratory: No shortness of breath, cough or sputum production. Cardiovascular: No chest pain, chest pressure or chest discomfort. No palpitations or pedal edema. Gastrointestinal: No anorexia, nausea, vomiting or diarrhea. No abdominal pain or blood in stool. Neurologic: No headache, dizziness, syncope, unilateral weakness, ataxia, numbness or tingling in the extremities. Endocrine: See HPI Physical exam: Constitutional: Alert, in no distress. Head: Normocephalic. Neck: Supple, Full range of motion. No lymphadenopathy. No palpable thyroid masses. Respiratory: Clear to auscultation. Cardiovascular: S1 S2 regular. No murmurs. 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 Tubular adenoma On beta sami at home Morbid obesity Fibromyalgia Mitral valve prolapse HTN (hypertension) Surgical History Hx of colonoscopy Hx laparoscopic cholecystectomy History of tubal ligation History of hysterectomy History of Family History Father Chronic mental illness Prostate cancer Lung cancer Alzheimers disease Mother Non-Hodgkin lymphoma Social History Household Members: Family Housing: House Alcohol intake: never Comment: pt resting comfortably Patient Tobacco Use Status: Never used Tobacco e-Cigarette/Vaping Use: Never Used Second Hand Smoke Exposure: No service: No Current occupational status: employed Current occupational exposures/hazards: No Cognitive needs: No Hearing needs: No Vision needs: Yes Female Reproductive History Menstrual Age of Menarche: 11 Physical Exam Vital Signs: Last Vital Signs Pulse 86 09/05/24 14:21 BP 120/82 09/05/24 14:21 Pulse Ox 98 09/05/24 14:21 Oxygen Delivery Method Room Air 09/05/24 14:21 BMI result Body Mass Index 43.0 Results Reviewed Results Reviewed: Laboratory Last Values Glucose (Clinic) 92 mg/dL (60-115) 09/05/24 14:26 Assessment & Plan Assessment & Plan (1) Hyperlipidemia LDL goal <70: Code(s): E78.5 - Hyperlipidemia, unspecified Category: Medical Plan: Reinforced compliance with rosuvastatin. Recommended Mediterranean diet. Continue walking for exercise. Check lipid profile prior to next visit. (2) HTN (hypertension): Code(s): I10 - Essential (primary) hypertension Category: Medical Qualifiers: Hypertension type: primary hypertension Qualified Code(s): I10 - Essential (primary) hypertension Plan: Recommended low-sodium diet and avoidance of caffeine. Continue medications. (3) Type 2 diabetes mellitus with renal complication: Code(s): E11.29 - Type 2 diabetes mellitus with other diabetic kidney complication Category: Medical Qualifiers: 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: without dedicated intermodal truck driver use Diabetes mellitus complication detail: with nephropathy Qualified Code(s): E11.21 - Type 2 diabetes mellitus with diabetic nephropathy Plan: In summary this is a 53-year-old female with type 2 diabetes with nephropathy. Her 30 day average on her glucometer indicates that her diabetes is now well- controlled. Continue Jardiance 10 mg daily. Continue Trulicity 0.75 mg daily. Stop metformin. If 7 day average increases over 135 she will call to have Trulicity increase to 1.5 mg weekly. Discussed pathophysiology of Type II Diabetes Mellitus with the patient in detail.? I explained the group home risks and complications associated with uncontrolled diabetes including nephropathy, neuropathy, peripheral vascular disease, retinopathy, increased risk of heart disease and stroke.? Discussed lifestyle modification with the patient. Recommended 30 minutes of moderately vigorous exercise 5 days per week to promote weight loss. The patient is referred for an eye exam and to the dietitian. Reviewed treatment for hypoglycemia. She has a prescription for glucose tablets. Follow up in 6 weeks. (4) Microalbuminuric diabetic nephropathy: Code(s): E11.21 - Type 2 diabetes mellitus with diabetic nephropathy Category: Medical Plan: Continue Jardiance. Managed by Nephrology. Plan Follow up in 4 weeks. Orders: Orders Lipid Panel 4 Weeks E78.5 - Hyperlipidemia, unspecified Referrals Aviation Neuropsychologist Nutrition Referral E11.65 - Type 2 diabetes mellitus with hyperglycemia Ophthalmology Referral E11.21 - Type 2 diabetes mellitus with diabetic nephropathy Coding Level of Care Code Est Pt Level 4 (58199) Complex EM visit Add On G2211 Diagnoses Hyperlipidemia LDL goal <70 E78.5 Primary hypertension I10 Hypertension type: primary hypertension Type 2 diabetes mellitus with diabetic nephropathy, without long-term current use of insulin E11.21 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: without group home use Diabetes mellitus complication detail: with nephropathy Microalbuminuric diabetic nephropathy E11.21
[2024-09-05 14:30] LABS: Glucose, Whole Blood 92 mg/dL (60-115)
== END 2024-09-05 14:48 | disposition home or self-care (01) ==
LOC: HO.ENCR 14:19
PROVIDERS: PCP Internal Medicine; Visit Provider Physician Assistant Medical
DX: E78.5 Hyperlipidemia, unspecified (principal); I10 Essential (primary) hypertension; E11.21 Type 2 diabetes mellitus with diabetic nephropathy

== ENCOUNTER → 2024-09-05 14:19 | Outpatient (BNVA) | payer OTHER, SELFPAY | PROVIDERS: PCP Internal Medicine; Visit Provider Physician Assistant Medical | DX: E11.21 Type 2 diabetes mellitus with diabetic nephropathy (principal); E11.65 Type 2 diabetes mellitus with hyperglycemia; E78.5 Hyperlipidemia, unspecified; I10 Essential (primary) hypertension | CPT/HCPCS: 82947; 99212 ==

== ENCOUNTER 2024-10-20 15:07 | Outpatient (AMB) | payer OTHER, SELFPAY ==
--- NOTE | 2024-10-20 15:08 | A.OFFVIS_ITS ---
Vital Signs 10/20/24 15:11 Height 5 ft 3 in Weight 242 lb 15.19 oz BMI 43.0 BP 100/68 Blood Pressure Location Rt brachial Position Sitting Pulse 100 Pulse Source Pulse Oximeter Pulse Oximetry (%) 98 Oxygen Delivery Method Room Air Intake Visit Reasons: Type 2 diabetes mellitus with hyperglycemia Intake Note: Patient present today for T2DM follow up. Last Diabetic Eye exam: Due over 3 years, requesting referral. Last Podiatry Visit: Does not see a Ax Survey Worker Random Glucose: 119 mg/dL HgA1C: 5.8% 10/20/2024 Construction Checker Required: Yes Construction Checker Language: Smt Machine Operator Services: Construction Checker Present Construction Checker Name: Juan M [id number] Information Interpreted: non-clinical & clinical Accompanied by: Self / Same As Patient Allergies sumatriptan Allergy (Mild, Verified 10/20/24 15:12) Itching Penicillins (PCN) Allergy (Unknown, Verified 10/20/24 15:12) hives & rash seafood Allergy (Mild, Uncoded 10/20/24 15:12) Itching HPI Comments Details: This is a 53-year-old female with a past medical history of hypertension, type 2 diabetes, hyperlipidemia, obesity, mitral valve disorder and fibromyalgia presenting for diabetic management. Patient diagnosed in 2021. Hemoglobin A1c jumped from 7.7% to 11.3%. At the time she stopped taking all her medications. Her hemoglobin a1c today 10/20/24 is 5.8%. She forgot her glucometer today. At her appointment in August her 30 day average was 97. She reports blood sugar range in the morning 80-90s. She reports blood sugar range in the afternoon 90s. No hypoglycemia. The highest sugar in the past few weeks was 119. Current medication regimen: Trulicity 0.75 mg weekly, Jardiance 10 mg daily Past medication: Metformin discontinued because it was no longer needed. Hypoglycemia symptoms: none Hyperglycemia symptoms: none Eye exam: needs referral She is following a diabetic diet. Microvascular complications: nephropathy (microalbuminuria) Macrovascular complications: none Hypertension: treated with amlodipine, lisinopril, metoprolol Hyperlipidemia: treated with rosuvastatin, resumed after visit in June with PCP She has a hepatic steatosis. The referral was placed for her eye exam. I gave her the contact number to schedule this today because she did not hear from the office though the referral was received. ROS: Constitutional: No unexplained weight loss, fever, chills, fatigue or night sweats. Eyes: No vision changes, blurry vision, double vision, eye pain, eye redness Respiratory: No shortness of breath, cough or sputum production. Cardiovascular: No chest pain, chest pressure or chest discomfort. No palpitations or pedal edema. Gastrointestinal: No anorexia, nausea, vomiting or diarrhea. No abdominal pain or blood in stool. Neurologic: No headache, dizziness, syncope, unilateral weakness, ataxia, numbness or tingling in the extremities. Endocrine: Denies polyuria, polydipsia, polyphagia. Physical exam: Constitutional: Alert, in no distress. Head: Normocephalic. Neck: Supple, Full range of motion. No lymphadenopathy. No palpable thyroid masses. Respiratory: Clear to auscultation. Cardiovascular: S1 S2 regular. No murmurs. 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 Tubular adenoma On beta sami at home Morbid obesity Fibromyalgia Mitral valve prolapse HTN (hypertension) Surgical History Hx of colonoscopy Hx laparoscopic cholecystectomy History of tubal ligation History of hysterectomy History of Family History Father Chronic mental illness Prostate cancer Lung cancer Alzheimers disease Mother Non-Hodgkin lymphoma Social History Household Members: Family Housing: House Alcohol intake: never Comment: pt resting comfortably Patient Tobacco Use Status: Never used Tobacco e-Cigarette/Vaping Use: Never Used Second Hand Smoke Exposure: No service: No Current occupational status: employed Current occupational exposures/hazards: No Cognitive needs: No Hearing needs: No Vision needs: Yes Female Reproductive History Menstrual Age of Menarche: 11 Physical Exam Vital Signs: Last Vital Signs Pulse 100 10/20/24 15:11 BP 100/68 10/20/24 15:11 Pulse Ox 98 10/20/24 15:11 Oxygen Delivery Method Room Air 10/20/24 15:11 BMI result Body Mass Index 43.0 Results AMB Hemoglobin A1c AMB Hemoglobin A1c 5.8 % Last Edit by JOSE ARMANDO Spencre on 10/20/24 15:29 Results Reviewed Results Reviewed: Laboratory Last Values Glucose (Clinic) 119 mg/dL (60-115) H 10/20/24 15:16 Laboratory Tests 08/01/21 06/24/24 06/26/24 09:55 08:40 12:42 Plt Count 242 Creatinine Estimated GFR AST 38 H ALT 50 H Triglycerides 132 Cholesterol 187 LDL Cholesterol, Calc 122 H HDL Cholesterol 39 L TSH 1.03 Microalb/Creat Ratio 108.2 H 08/26/24 09:25 Plt Count Creatinine 0.72 Estimated GFR > 60 AST ALT Triglycerides Cholesterol LDL Cholesterol, Calc HDL Cholesterol TSH Microalb/Creat Ratio Assessment & Plan Assessment & Plan (1) Type 2 diabetes mellitus with renal complication: Code(s): E11.29 - Type 2 diabetes mellitus with other diabetic kidney complication Category: Medical Qualifiers: Diabetes mellitus complication detail: with nephropathy Diabetes mellitus intermediate frame tender insulin use: without skilled nursing use Qualified Code(s): E11.21 - Type 2 diabetes mellitus with diabetic nephropathy Plan: In summary this is a 53-year-old female with well-controlled type 2 diabetes with nephropathy. Continue Jardiance 10 mg daily. Continue Trulicity 0.75 mg daily. Discussed pathophysiology of Type II Diabetes Mellitus with the patient in detail.? I explained the intermediate frame tender risks and complications associated with uncontrolled diabetes including nephropathy, neuropathy, peripheral vascular disease, retinopathy, increased risk of heart disease and stroke.? Discussed lifestyle modification with the patient. Recommended 30 minutes of moderately vigorous exercise 5 days per week to promote weight loss. The patient is referred for an eye exam and to the dietitian. Reviewed treatment for hypoglycemia. She has a prescription for glucose tablets. Follow up in 3 months for diabetes. (2) Hyperlipidemia LDL goal <70: Code(s): E78.5 - Hyperlipidemia, unspecified Category: Medical Plan: Reinforced compliance with rosuvastatin. Recommended Mediterranean diet. Continue walking for exercise. Check lipid profile prior to next visit. (3) HTN (hypertension): Code(s): I10 - Essential (primary) hypertension Category: Medical Qualifiers: Hypertension type: primary hypertension Qualified Code(s): I10 - Essential (primary) hypertension Plan: Recommended low-sodium diet and avoidance of caffeine. Continue medications. (4) Microalbuminuric diabetic nephropathy: Code(s): E11.21 - Type 2 diabetes mellitus with diabetic nephropathy Category: Medical Plan: Continue Jardiance. Managed by Nephrology. Plan Follow up in 3 months for diabetic management. Orders: Orders AMB Hemoglobin A1c Today E11.65 - Type 2 diabetes mellitus with hyperglycemia Creatinine 3 Months E11.9 - Type 2 diabetes mellitus without complications Lipid Panel 3 Months E78.5 - Hyperlipidemia, unspecified Hemoglobin A1c 3 Months R73.9 - Hyperglycemia, unspecified Microalbumin, Random (w Creat) 3 Months E11.9 - Type 2 diabetes mellitus without complications Patient Instructions: Please call this number to schedule your eye exam: [phone] Continue Trulicity 0.75 mg weekly and Jardiance 10 mg daily If you develop low blood sugars under 70 please contact the office Contin?e con Trulicity 0.75 mg semanalmente y Jardiance 10 mg diarios. Si presenta niveles bajos de az?car en azucena por debajo de 70, comun?quese con el consultorio. Coding Level of Care Code Est Pt Level 4 (81148) Complex EM visit Add On G2211 Diagnoses Type 2 diabetes mellitus with diabetic nephropathy, without long-term current u se of insulin E11.21 Diabetes mellitus complication detail: with nephropathy Diabetes mellitus skilled nursing insulin use: without intermediate frame tender use Hyperlipidemia LDL goal <70 E78.5 Primary hypertension I10 Hypertension type: primary hypertension Microalbuminuric diabetic nephropathy E11.21
[2024-10-20 15:11] VITALS: BP 100/68; PULSE 100; O2SAT 98; BMI 43.0
[2024-10-20 15:21] LABS: Glucose, Whole Blood 119 mg/dL (60-115)
== END 2024-10-20 15:35 | disposition home or self-care (01) ==
LOC: HO.ENCR 15:07
PROVIDERS: PCP Internal Medicine; Visit Provider Physician Assistant Medical
DX: E11.21 Type 2 diabetes mellitus with diabetic nephropathy (principal); E78.5 Hyperlipidemia, unspecified; I10 Essential (primary) hypertension; E11.65 Type 2 diabetes mellitus with hyperglycemia

== ENCOUNTER → 2024-10-20 15:07 | Outpatient (BNVA) | payer OTHER, SELFPAY | PROVIDERS: PCP Internal Medicine; Visit Provider Physician Assistant Medical | DX: E11.65 Type 2 diabetes mellitus with hyperglycemia (principal); E11.21 Type 2 diabetes mellitus with diabetic nephropathy; E78.5 Hyperlipidemia, unspecified; I10 Essential (primary) hypertension | CPT/HCPCS: 82947; 83036; 99212 ==

== ENCOUNTER 2024-10-31 11:34 | Outpatient (AMB) | payer OTHER, SELFPAY ==
[2024-10-31 11:49] VITALS: BMI 42.6
--- NOTE | 2024-10-31 11:49 | MHC.AMNUTRGE ---
VS Expanded 10/31/24 11:49 10/31/24 11:54 Height 5 ft 3 in 5 ft 3 in Weight 240 lb 11.916 oz 241 lb BMI 42.6 42.7 Intake Visit Reasons: Type 2 diabetes mellitus with hyperglycemia Allergies sumatriptan Allergy (Mild, Verified 10/20/24 15:12) Itching Penicillins (PCN) Allergy (Unknown, Verified 10/20/24 15:12) hives & rash seafood Allergy (Mild, Uncoded 10/20/24 15:12) Itching Nutrition Presentation Details: Pt presents for MNT for T2DM Pt reports finally accepting DM dx and working on diet modifications and increasing physical activity. Pt reports working on reducing empty calorie foods walking daily 20 minutes 2x/d BS Monitoring Most Recent Diabetes Results: Creatinine, (0.5-1.4) 0.72 mg/dL 08/26/24 BUN, (9-16) 18 mg/dL H 08/26/24 Sodium, (135-145) 139 mmol/L 08/26/24 Potassium, (3.3-5.1) 4.2 mmol/L 08/26/24 Chloride, (96-108) 106 mmol/L 08/26/24 Carbon Dioxide, (22-29) 25 mmol/L 08/26/24 [id number].[id number] Equation Height: 5 ft 3 in Weight: 241 lb Resting Metabolic Rate: 1665.51 Calculated Activity Level: Sedentary Calories Needed to Maintain Weight: 1997.61 Diagnosis Nutrition problem #1: food nutri know defi As related to (etiology) #1: diagnosis As evidenced by (sign/symptom) #1: knowledge deficit of diet 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 Tubular adenoma On beta sami at home Morbid obesity Fibromyalgia Mitral valve prolapse HTN (hypertension) Surgical History Hx of colonoscopy Hx laparoscopic cholecystectomy History of tubal ligation History of hysterectomy History of Family History Father Chronic mental illness Prostate cancer Lung cancer Alzheimers disease Mother Non-Hodgkin lymphoma Social History Household Members: Family Housing: House Alcohol intake: never Comment: pt resting comfortably Patient Tobacco Use Status: Never used Tobacco e-Cigarette/Vaping Use: Never Used Second Hand Smoke Exposure: No service: No Current occupational status: employed Current occupational exposures/hazards: No Cognitive needs: No Hearing needs: No Vision needs: Yes Female Reproductive History Menstrual Age of Menarche: 11 Assessment & Plan Assessment & Plan (1) Diabetes mellitus: Code(s): E11.9 - Type 2 diabetes mellitus without complications Category: Medical Qualifiers: Diabetes mellitus type: type 2 Diabetes mellitus halfway insulin use: without halfway use Diabetes mellitus complication status: with hyperglycemia Qualified Code(s): E11.65 - Type 2 diabetes mellitus with hyperglycemia Plan: current wt: 109 kg (11/09 ) est kcal needs as per MSJ: 2000 est protein needs as per 1 g/kg BW: 110 est fluid needs as per 30 ml/kg BW: 3300 Recommended fiber > 12 g /day and gradually increase up to 25-28 g /day or as tolerated Nutrition topics discussed : Reviewed (R), Pt verbalized understanding (V) , not applicable (N/A) R, : Healthy Plate Method Concept: R, : Carbohydrates: food sources of carbohydrates, relationship of carbohydrates to blood glucose, fatty liver GI health. Recommended total amount of carbohydrates per meals and snack. Differences between simple carbohydrates and complex carbohydrates R, : Lean protein foods including vegan , vegetarian sources of protein. Benefits of protein (including but not limited to healing, nutritional value , benefits in weight loss, glucose control R, V, N/A: Fats : Source of fats, benefits of fats. Difference between saturated and unsaturated fats. Saturated fats and its contribution to inflammation R, V, N/A: Fiber: food sources and role of fiber in the diet (including but not limited to its role as a prebiotic, benefits in constipation, role in IBS , role in glucose control and cholesterol level) R, : Hydration: role of hydration and prevention of dehydration or over hydration. Foods and water content. 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
[2024-11-02 21:12] VITALS: BMI 42.7
== END 2024-10-31 12:20 | disposition home or self-care (01) ==
LOC: HO.ENCR 11:35
PROVIDERS: PCP Internal Medicine; Visit Provider Dietitian, Registered
DX: E11.65 Type 2 diabetes mellitus with hyperglycemia (principal)

== ENCOUNTER → 2024-10-31 11:34 | Outpatient (BNVA) | payer OTHER, SELFPAY | PROVIDERS: PCP Internal Medicine; Visit Provider Dietitian, Registered | DX: E11.65 Type 2 diabetes mellitus with hyperglycemia (principal) | CPT/HCPCS: 97802 ==

== ENCOUNTER 2024-12-28 15:33 | Outpatient (AMB) | payer OTHER, SELFPAY ==
[2024-12-28 15:35] VITALS: BP 130/86; PULSE 87; O2SAT 99; BMI 42.1
--- NOTE | 2024-12-28 15:35 | A.OFFPC_ITS ---
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 Accompanied by: Self / Same As Patient Allergies sumatriptan Allergy (Mild, Verified 12/28/24 15:55) Itching Penicillins (PCN) Allergy (Unknown, Verified 12/28/24 15:55) hives & rash seafood Allergy (Mild, Uncoded 12/28/24 15:55) Itching Medication List - Last Reconciled 12/28/24 by Bailey Akers MD amlodipine 2.5 mg PO DAILY 90 days blood pressure monitor As directed blood sugar diagnostic (FreeStyle Lite Strips) use 1 strip once a day blood-glucose meter (FreeStyle Lite Meter kit) As directed cholecalciferol (vitamin D3) 50 mcg PO DAILY 90 days dulaglutide (Trulicity) 0.75 mg (0.5 mL) subcut QWEEK empagliflozin (Jardiance) 10 mg PO DAILY 90 days glucose (Dex4 Glucose Quick Dissolve) 16 grams (4 x 4 gram) PO Q15M PRN lancets (FreeStyle Lancets) Use 1 lancet once a day lisinopril 5 mg PO DAILY 90 days metoprolol tartrate 50 mg PO DAILY 90 days pantoprazole (Protonix) 40 mg PO DAILY PRN rosuvastatin 20 mg PO BEDTIME 90 days Tobacco use date assessed: 12/28/24 Dental Screening Dental Screen Date: 12/28/24 HPI HPI Comments History of Present Illness Details The patient is a 54-year-old female presenting for her physical exam. Her diabetes is noted to be controlled, with the last hemoglobin A1c test performed on October 20. Colonoscopy done 2021 showing tubular adenoma and next colonoscopy should be 2027. Mammogram was last year. Needs new order for a new mammogram. Pap smear done 2023. She is morbidly obese with a BMI of 42.1 and is trying to do diet and exercise. Current medications include metoprolol 50 mg, Protonix 40 mg, and rosuvastatin 20 mg. The patient's last colonoscopy was in 2021, and the next one is due in 2027. The patient has a history of a hysterectomy and was informed she no longer requires Pap smears. She denies any history of smoking or alcohol use. She declines the influenza vaccine today. She has no depression. 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 Tubular adenoma On beta sami at home Morbid obesity Fibromyalgia Mitral valve prolapse HTN (hypertension) Surgical History Hx of colonoscopy Hx laparoscopic cholecystectomy History of tubal ligation History of hysterectomy History of Family History Father Chronic mental illness Prostate cancer Lung cancer Alzheimers disease Mother Non-Hodgkin lymphoma Social History Household Members: Family Housing: House Alcohol intake: never Comment: pt resting comfortably Patient Tobacco Use Status: Never used Tobacco e-Cigarette/Vaping Use: Never Used Second Hand Smoke Exposure: No service: No Current occupational status: employed Current occupational exposures/hazards: No Cognitive needs: No Hearing needs: No Vision needs: Yes Female Reproductive History Menstrual Age of Menarche: 11 Questionnaire PHQ-9 Over the last 2 weeks, how often have you been bothered by any of the following problems? 1. Little interest or pleasure in doing things: not at all 2. Feeling down, depressed, or hopeless: not at all 3. Trouble falling or staying asleep, or sleeping too much: not at all 4. Feeling tired or having little energy: not at all 5. Poor appetite or overeating: not at all 6. Feeling bad about yourself - or that you are a failure or have let yourself or your family down: not at all 7. Trouble concentrating on things, such as reading the newspaper or watching television: not at all 8. Moving or speaking so slowly that other people could have noticed. Or the opposite - being so fidgety or restless that you have been moving around a lot more than usual: not at all 9. Thoughts that you would be better off or of hurting yourself in some way: not at all Total score: 0 Depression Screening Interpretation: Negative Depression Screening Done: Yes 27475 - PHQ-9 Billing: Yes Source: Developed by Drs. Luis Daniel Martinez, Ewa Morales, Darnell Terrazas and colleagues, with an educational joselyn from [employer]. Thrive Questionnaire Date Thrive assessed: 12/28/24 I am a: Patient What is your living situation today?: I have a steady place to live Within the past 12 months, did the food you bought not last and you didn't have the money to get more?: Never true Within the past 12 months, did you worry whether your food would run out before you got money to buy more?: Never true Do you have trouble paying for medicines?: No Do you have trouble getting transportation to medical appointments?: No Do you have trouble paying your heating and electricity bill?: No Do you have trouble taking care of your child, family member or friend?: No Do you have trouble with day-to-day activities such as bathing, preparing meals, shopping, managing finances, etc.?: No Are you currently unemployed and looking for a job?: No Are you interested in more education?: No Please select the resources that you would like help with: None Currently or been in a relationship where the following occur: No concerns reported THRIVE Score: 0 AUDIT C Alcohol Use Questionnaire (AUDIT-C) 1. How often do you have a drink containing alcohol?: Never 3. How often do you have six or more drinks on one occasion?: Never Total Score: 0 Score Reviewed/Action Taken: No SHELLEY-7 AMB Questionnaire SHELLEY-7 Date SHELLEY - 7 assessed: 12/28/24 Feeling nervous, anxious, or on edge: 0 = Not at all Not being able to stop or control worryin = Not at all Worrying too much about different things: 0 = Not at all Trouble relaxin = Not at all Being so restless that it is hard to sit still: 0 = Not at all Becoming easily annoyed or irritable: 0 = Not at all Feeling afraid as if something awful might happen: 0 = Not at all Total SHELLEY-7 score (0-4 normal; 5-9 mild; 10-14 moderate; 15-21 severe): 0 Source: Developed by Ewa Alanis Kurt Kroenke and colleagues, with an educational joselyn from [employer]. SHELLEY-7 Assessment Billing SHELLEY-7 Assessment Tool: SHELLEY-7 Assessment 79807 Review of Systems Const All systems reviewed & are unremarkable except as noted in HPI and below Card Denies chest pain at rest, Denies chest pain with activity, Denies edema, Denies irregular heart rhythm, Denies claudication, Denies dyspnea, Denies dyspnea on exertion, Denies orthopnea, Denies paroxysmal nocturnal dyspnea and Denies slow heart rate Resp Denies cough, Denies dyspnea and Denies dyspnea on exertion Neuro Denies lack of coordination Physical exam (Primary Care) Vital Signs: Last Vital Signs Pulse 87 12/28/24 15:35 BP 130/86 12/28/24 15:35 Pulse Ox 99 12/28/24 15:35 Oxygen Delivery Method Room Air 12/28/24 15:35 BMI result Body Mass Index 42.1 BMI Assessment/Plan discussion: High BMI High, discussed plan: lifestyle, weight reduction, dietary and physical activity Tobacco/Smoking Status: Tobacco use Status Tobacco use date assessed 12/28/24 12/28/24 15:42 Patient Tobacco Use Status Never used Tobacco 12/28/24 15:42 Tobacco use type 08/04/24 15:47 e-Cigarette/Vaping Use Never Used 12/28/24 15:42 PHQ-9: PHQ-9 Score PHQ-9: Total score 0 12/28/24 15:42 Depression Screening Interpretation: Negative Thrive Assessment: Date of Thrive Assessment Date Thrive assessed 12/28/24 12/28/24 15:42 Currently or been in a relationship where the following occur: No concerns reported [facility] Head: Yes normal to inspection, Yes normocephalic and Yes atraumatic Ears: external ears normal Eyes General: appearance normal, both eyes and all related structures Eyelids: Yes eyelids normal Conjunctivae: conjunctivae normal Neck Neck: Yes normal visual inspection and Yes supple Resp Effort & Inspection: normal respiratory effort Auscultation: clear to auscultation bilaterally Cardio Jugular venous distension: no JVD Rate: regular rate Rhythm: regular rhythm Heart sounds: S1 normal heart sound present and S2 normal heart sound present GI Inspection: Yes normal to inspection Palpation (GI): Soft to palpation and nontender Auscultation: normal bowel sounds Skin General skin exam: no rashes or lesions noted Neuro General: no focal motor deficits Extrem General: Yes full ROM Psych Appearance: grossly normal Coding Level of Care Code Est Pt Prev Care 40-64y(04580) Diagnoses Encounter for physical examination Z00.00 Type 2 diabetes mellitus with hyperglycemia, without long-term current use of insulin E11.65 Diabetes mellitus type: type 2 Diabetes mellitus assisted insulin use: without assisted use Diabetes mellitus complication status: with hyperglycemia Morbid obesity E66.01 Additional Codes PHQ-9 - 77968 - PHQ-9 Billing: Yes ([id number]) SHELLEY-7 Assessment Billing - SHELLEY-7 Assessment Tool: SHELLEY-7 Assessment 26309 ([id number]) Time Spent (min) 30 Assessment & Plan Assessment & Plan (1) Encounter for physical examination: Code(s): Z00.00 - Encounter for general adult medical examination without abnormal findings Category: Medical (2) Diabetes mellitus: Code(s): E11.9 - Type 2 diabetes mellitus without complications Category: Medical Qualifiers: Diabetes mellitus type: type 2 Diabetes mellitus assisted insulin use: without terminal gauger use Diabetes mellitus complication status: with hyperglycemia Qualified Code(s): E11.65 - Type 2 diabetes mellitus with hyperglycemia (3) Morbid obesity: Code(s): E66.01 - Morbid (severe) obesity due to excess calories Category: Medical Plan Plan 1. Physical exam Repeat in a year. Colonoscopy for 2027. Mammogram ordered. 2. Diabetes Mellitus The patient's diabetes is considered controlled based on her last hemoglobin A1c test from October. Continue current management without changes. A1c goal is equal or less than 7%. 3. Morbid obesity Continue diet and exercise to reach BMI goal less than 30. Orders: Orders Lipid Panel Today E78.5 - Hyperlipidemia, unspecified Vitamin D 25-OH Total Today E55.9 - Vitamin D deficiency, unspecified Microalbumin, Random (w Creat) Today R80.9 - Proteinuria, unspecified Comprehensive Met. Panel Today E11.21 - Type 2 diabetes mellitus with diabetic nephropathy Referrals Ophthalmology Referral E11.65 - Type 2 diabetes mellitus with hyperglycemia Medications: New amlodipine 5 mg PO DAILY 90 tabs 1RF 90 days Discontinued lisinopril Discontinued Reason: Order 5 mg PO DAILY 90 days 90 tabs 1RF amlodipine Discontinued Reason: Patient Completed Course 2.5 mg PO DAILY 90 days 90 tabs 3RF M79.7 - Fibromyalgia
== END 2024-12-28 16:07 | disposition home or self-care (01) ==
LOC: HO.HMCH 15:34
PROVIDERS: PCP Internal Medicine; Visit Provider Internal Medicine
DX: Z00.00 Encounter for general adult medical examination without abnormal findings (principal); E11.65 Type 2 diabetes mellitus with hyperglycemia; E66.01 Morbid (severe) obesity due to excess calories; Z68.41 Body mass index [BMI] 40.0-44.9, adult

== ENCOUNTER → 2024-12-28 15:33 | Outpatient (BNVA) | payer OTHER, SELFPAY | PROVIDERS: PCP Internal Medicine; Visit Provider Internal Medicine | DX: Z00.00 Encounter for general adult medical examination without abnormal findings (principal); E66.01 Morbid (severe) obesity due to excess calories; E11.65 Type 2 diabetes mellitus with hyperglycemia; E11.21 Type 2 diabetes mellitus with diabetic nephropathy; Z68.41 Body mass index [BMI] 40.0-44.9, adult | CPT/HCPCS: 96127; 99396 ==

== ENCOUNTER 2025-01-13 08:30 | Outpatient (REF) | payer OTHER, SELFPAY ==
[2025-01-13 10:45] LABS: Alanine Aminotransferase 19 U/L (0-31); Albumin Level 4.3 g/dL (3.5-5.0); Alkaline Phosphatase 79 U/L (39-117); Anion Gap 12 (12-20); Aspartate Amino Transferase 21 U/L (5-31); Blood Urea Nitrogen 14 mg/dL (9-16); Calcium 9.6 mg/dL (8.4-10.2); Carbon Dioxide 29 mmol/L (22-29); Chloride 105 mmol/L (96-108); Cholesterol 151 mg/dL (<200); Estimated Glomerular Filt Rate > 60; HDL Cholesterol 46 mg/dL (>40); Potassium 4.5 mmol/L (3.3-5.1); Sodium 141 mmol/L (135-145); Total Protein 7.2 g/dL (6.5-8.0); Triglycerides 84 mg/dL (<150)
[2025-01-13 10:50] LABS: Microalbum/Creatinine Ratio Ur 13.9 ug/mg cr (<30)
== END 2025-01-13 08:31 | disposition home or self-care (01) ==
LOC: HO.LAB 08:30
PROVIDERS: Absent Provider Internal Medicine; PCP Internal Medicine; Visit Provider Physician Assistant Medical
DX: I10 Essential (primary) hypertension (principal); E11.21 Type 2 diabetes mellitus with diabetic nephropathy; E11.65 Type 2 diabetes mellitus with hyperglycemia; E78.5 Hyperlipidemia, unspecified; E55.9 Vitamin D deficiency, unspecified; R80.9 Proteinuria, unspecified
CPT/HCPCS: 36415; 80053; 80061; 82043; 82306; 82570; 83036

== ENCOUNTER 2025-01-19 15:11 | Outpatient (AMB) | payer OTHER, SELFPAY ==
--- NOTE | 2025-01-19 15:13 | A.OFFVIS_ITS ---
Vital Signs 01/19/25 15:16 Height 5 ft 3 in Weight 237 lb 10.533 oz BMI 42.1 BP 128/92 H Blood Pressure Location Lt brachial Position Sitting Pulse 85 Pulse Source Pulse Oximeter Pulse Oximetry (%) 97 Oxygen Delivery Method Room Air Intake Visit Reasons: T2DM Intake Note: Patient present today for T2DM follow up. 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 Random Glucose: 80 mg/dL HgA1C: 5.8% 01/13/2025 Medical Imaging Technician Required: Yes Medical Imaging Technician Language: [employer] Services: Medical Imaging Technician Present Medical Imaging Technician Name: Loren [id number]- Voyce Information Interpreted: non-clinical & clinical Accompanied by: Self / Same As Patient Allergies sumatriptan Allergy (Mild, Verified 01/19/25 15:17) Itching Penicillins (PCN) Allergy (Unknown, Verified 01/19/25 15:17) hives & rash seafood Allergy (Mild, Uncoded 01/19/25 15:17) Itching lisinopril Adverse Reaction (Mild, Uncoded 01/19/25 15:27) Cough HPI Comments Details: This is a 54-year-old female with a past medical history of hypertension, type 2 diabetes, hyperlipidemia, obesity, mitral valve disorder and fibromyalgia presenting for diabetic management. Patient diagnosed in 2021. Her hemoglobin a1c 5.8% 01/13/2025. Current medication regimen: Trulicity 0.75 mg weekly, Jardiance 10 mg daily Lost 13 pounds since July! Past medication: Metformin discontinued because it was no longer needed. Hypoglycemia: none Hyperglycemia: no symptoms Eye exam: It is scheduled 01/31/25. She is following a diabetic diet. Microvascular complications: nephropathy (microalbuminuria-normal on recent labs) Macrovascular complications: none Hypertension: treated with amlodipine, metoprolol Lisinopril was discontinued because it caused a cough. Her blood pressure is elevated today. Says Amlodipine was increased to 5 mg when she stopped Lisinopril, but she didn't get the new Rx yet. It is ready at the pharmacy. Hyperlipidemia: treated with rosuvastatin She has a hepatic steatosis. ROS: Constitutional: No unexplained weight loss, fever, chills, fatigue or night sweats. Eyes: No vision changes, blurry vision, double vision, eye pain, eye redness Respiratory: No shortness of breath, cough or sputum production. Cardiovascular: No chest pain, chest pressure or chest discomfort. No palpitations or pedal edema. Gastrointestinal: No anorexia, nausea, vomiting or diarrhea. No abdominal pain or blood in stool. Neurologic: No headache, dizziness, syncope, unilateral weakness, ataxia, numbness or tingling in the extremities. Endocrine: Denies polyuria, polydipsia, polyphagia. Physical exam: Constitutional: Alert, in no distress. Head: Normocephalic. Neck: Supple, Full range of motion. No lymphadenopathy. No palpable thyroid masses. Respiratory: Clear to auscultation. Cardiovascular: S1 S2 regular. No murmurs. 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 Tubular adenoma On beta sami at home Morbid obesity Fibromyalgia Mitral valve prolapse HTN (hypertension) Surgical History Hx of colonoscopy Hx laparoscopic cholecystectomy History of tubal ligation History of hysterectomy History of Family History Father Chronic mental illness Prostate cancer Lung cancer Alzheimers disease Mother Non-Hodgkin lymphoma Social History Household Members: Family Housing: House Alcohol intake: never Comment: pt resting comfortably Patient Tobacco Use Status: Never used Tobacco e-Cigarette/Vaping Use: Never Used Second Hand Smoke Exposure: No service: No Current occupational status: employed Current occupational exposures/hazards: No Cognitive needs: No Hearing needs: No Vision needs: Yes Female Reproductive History Menstrual Age of Menarche: 11 Physical Exam Vital Signs: BMI result Body Mass Index 42.1 Results Reviewed Results Reviewed: Laboratory Tests 01/13/25 01/13/25 08:55 09:00 Creatinine 0.66 Estimated GFR > 60 Hemoglobin A1c % 5.8 AST 21 ALT 19 Triglycerides 84 Cholesterol 151 LDL Cholesterol, Calc 89 HDL Cholesterol 46 25-OH Vitamin D Total 33.8 Urine Creatinine 64.73 Urine Microalbumin 9.0 Microalb/Creat Ratio 13.9 Assessment & Plan Assessment & Plan (1) Type 2 diabetes mellitus with renal complication: Code(s): E11.29 - Type 2 diabetes mellitus with other diabetic kidney complication Category: Medical Qualifiers: Diabetes mellitus snf insulin use: without meterman use Diabetes mellitus complication detail: with nephropathy Qualified Code(s): E11.21 - Type 2 diabetes mellitus with diabetic nephropathy Plan: In summary this is a 54-year-old female with well-controlled type 2 diabetes with nephropathy. Continue Jardiance 10 mg daily. Continue Trulicity 0.75 mg daily. Discussed pathophysiology of Type II Diabetes Mellitus with the patient in detail.? I explained the meterman risks and complications associated with uncontrolled diabetes including nephropathy, neuropathy, peripheral vascular disease, retinopathy, increased risk of heart disease and stroke.? Discussed lifestyle modification with the patient. Recommended 30 minutes of moderately vigorous exercise 5 days per week to promote weight loss. The patient is referred for an eye exam and to the dietitian. Reviewed treatment for hypoglycemia. She has a prescription for glucose tablets. Follow up in 3 months for diabetes. (2) Hyperlipidemia LDL goal <70: Code(s): E78.5 - Hyperlipidemia, unspecified Category: Medical Plan: Reinforced compliance with rosuvastatin. Recommended Mediterranean diet. Continue walking for exercise. Check lipid profile prior to next visit. (3) HTN (hypertension): Code(s): I10 - Essential (primary) hypertension Category: Medical Qualifiers: Hypertension type: primary hypertension Qualified Code(s): I10 - Essential (primary) hypertension Plan: Recommended low-sodium diet and avoidance of caffeine. Continue medications. (4) Microalbuminuric diabetic nephropathy: Code(s): E11.21 - Type 2 diabetes mellitus with diabetic nephropathy Category: Medical Plan: Continue Jardiance. Followed by Nephrology. Plan Follow up in 3 months for diabetic management. Coding Level of Care Code Est Pt Level 4 (60385) Complex visit Add On G2211 Diagnoses Type 2 diabetes mellitus with diabetic nephropathy, without long-term current use of insulin E11.21 Diabetes mellitus snf insulin use: without meterman use Diabetes mellitus complication detail: with nephropathy Hyperlipidemia LDL goal <70 E78.5 Primary hypertension I10 Hypertension type: primary hypertension Microalbuminuric diabetic nephropathy E11.21
[2025-01-19 15:16] VITALS: BP 128/92; PULSE 85; O2SAT 97; BMI 42.1
[2025-01-19 15:26] LABS: Glucose, Whole Blood 80 mg/dL (60-115)
== END 2025-01-19 15:37 | disposition home or self-care (01) ==
LOC: HO.ENCR 15:11
PROVIDERS: PCP Internal Medicine; Visit Provider Physician Assistant Medical
DX: E11.21 Type 2 diabetes mellitus with diabetic nephropathy (principal); E78.5 Hyperlipidemia, unspecified; I10 Essential (primary) hypertension

== ENCOUNTER → 2025-01-19 15:11 | Outpatient (BNVA) | payer OTHER, SELFPAY | PROVIDERS: PCP Internal Medicine; Visit Provider Physician Assistant Medical | DX: E11.21 Type 2 diabetes mellitus with diabetic nephropathy (principal); E78.5 Hyperlipidemia, unspecified; I10 Essential (primary) hypertension; Z79.84 Long term (current) use of oral hypoglycemic drugs; Z79.85 Long-term (current) use of injectable non-insulin antidiabetic drugs; Z79.899 Other long term (current) drug therapy | CPT/HCPCS: 82947; 99212 ==